=== PATIENT | male | born 1945 | race Caucasian/White ===

== ENCOUNTER 2020-05-16 10:18 | Emergency (ER) | payer OTHER ==
--- OUTSIDE RECORDS SUMMARY | 2020-05-16 10:23 | XMS REPORT | Clinical Summary ---
:1945 Author Organization [facility] Address [address] [place] [address] Care Team Providers Name Role Phone Unknown, Phys Primary Care Provider Unavailable Allergies Active Allergy Reactions Severity Noted Date Comments Amiloride-Hydrochlorothiazide Rash Low 01/16/2016 Medications Medication Sig Dispensed Refills Start Date End Date Status metoprolol succinate XL Take 100 mg by 0 Active (TOPROL-XL) 100 MG 24 mouth 2 (two) hr tablet times a day. clopidogrel (PLAVIX) 75 Take 75 mg by 0 Active mg tablet mouth daily. amLODIPine (NORVASC) 5 Take 5 mg by 0 Active MG tablet mouth daily. aspirin (ECOTRIN) 81 MG Take 81 mg by 0 Active enteric coated tablet mouth daily. losartan (COZAAR) 25 MG 0 04/16/2019 Active tablet Active Problems Problem Noted Date Hypertension 06/12/2018 Type 2 diabetes mellitus without complication, without long-term current 06/12/2018 use of insulin Overview: No diabetic retinopathy. 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/29/2016 Overview: No treatment needed Follow annually Pseudophakia, left eye 01/31/2016 Overview: S/p PCIOL OS 716 toric lens SN6AT3 +19.5 DIOPTER Feels surgery helped him considerably Encounters Date Type Specialty Care Team Description 01/05/2020 Telephone Ophthalmology Ada Valdez 10/06/2019 Travel 10/06/2019 Telephone Ophthalmology Neida Abbott MD 10/01/2019 Telephone Ophthalmology Neida Abbott MD 08/17/2019 Telephone Ophthalmology Neida Abbott MD 08/11/2019 Office Visit Ophthalmology Neida Abbott Nuclear scler otic cataract, right (Primary Dx); MD Rebeca Pseudophakia, l eft eye 06/19/2019 Telephone Ophthalmology Neida Abbott MD 06/11/2019 Office Visit Ophthalmology Neida Abbott Nuclear scler otic cataract, right (Primary Dx); MD Rebeca Type 2 diabetes mellitus without complication, without long-term current use of insulin (HCC); Pseudophakia, l eft eye; Choroidal nevus of left eye; Essential hyper tension after 05/16/2019 Surgical History Surgery Date Site/Laterality Comments KNEE SURGERY Left irrigation CAROTID STENT 07/08/2005 - Femoral 07/07/2006 GA XCAPSL CTRC RMVL 01/16/2016 Eye/Left Procedure: C ATARACT REMOVAL BY INSJ IO LENS PROSTH W/O PHACOEMU LSIFICATION W/ IOL, ECP LEFT EYE; Surge on: Neida Abbott MD; Location: [facility] 18 OR; Service: [facility] Medical devices from this surgery are in t he Implants section. CATARACT EXTRACTION W/ 01/06/2016 - Left INTRAOCULAR LENS 02/05/2016 IMPLANT Medical History Medical History Date Comments Hypertension Family History Medical History Relation Name Comments No Known Problems Brother No Known Problems Father No Known Problems Maternal Aunt No Known Problems Maternal Grandfather No Known Problems Maternal Grandmother No Known Problems Maternal Uncle No Known Problems Mother No Known Problems Paternal Aunt No Known Problems Paternal Grandfather No Known Problems Paternal Grandmother No Known Problems Paternal Uncle No Known Problems Sister Amblyopia Neg Hx Aneurysm Neg Hx Blindness Neg Hx Cancer Neg Hx Cataracts Neg Hx Diabetes Neg Hx Fuchs' dystrophy Neg Hx Glaucoma Neg Hx Hypertension Neg Hx [place] Neg Hx Macular degeneration Neg Hx Multiple sclerosis Neg Hx Ptosis Neg Hx Retinal detachment Neg Hx Strabismus Neg Hx Stroke Neg Hx Thyroid disease Neg Hx Relation Name Status Comments Brother Father Maternal Aunt Maternal Grandfather Maternal Grandmother Maternal Uncle Mother Paternal Aunt Paternal Grandfather Paternal Grandmother Paternal Uncle Sister Social History Tobacco Use Types Packs/Day Years Used Date Never Smoker Smokeless Tobacco: Never Used Alcohol Use Drinks/Week oz/Week Comments No Sex Assigned at Date Recorded Not on file Last Filed Vital Signs Not on file Plan of Treatment Health Maintenance Due Date Last Done Comments DIABETIC FOOT EXAM 11/11/1953 URINE MICROALBUMIN 11/11/1953 COLONOSCOPY SCREENING 11/11/1993 SHINGLES VACCINES (#1) 11/11/1993 65+ PNEUMOCOCCAL VACCINE (1 of 1 - 11/11/2008 PPSV23) INFLUENZA VACCINE 02/06/2020 DIABETES: RETINAL EYE EXAM 08/11/2021 08/11/2019, 9, 06/11/2019, Additional history exists Implants Implanted Type Area Facilities Flight Check Pilot Device Shelf Model / Identifier Expiration Serial / Lot Date Lens Iol Asprc Asymet Bicnvx Ant +19.5d 0deg 6x13mm - [id number] - [id number] Intraocular Left: ANCA 06/06/2020 [id number] / Implanted: Qty: 1 on 01/16/2016 by Neida Abbott MD at [facility] [employer] [id number] / [id number] Procedures Procedure Name Priority Date/Time Associated Comments Diagnosis IOL BIOMETRY - OU - Routine 08/11/2019 10:16 AM Nuclear sclero tic Results for this BOTH EYES RN PSYCHIATRIC cataract, right procedure ar e in the results section. CORNEAL TOPOGRAPHY - Routine 08/11/2019 10:16 AM Nuclear scler otic Results for this OU - BOTH EYES RN PSYCHIATRIC cataract, right procedure are in the results section. after 05/16/2019 Results IOL Master - OU - Both Eyes (08/11/2019 10:16 AM RN PSYCHIATRIC) Pathologist Sig nature Axial Length-OD 25.02 Axial Length-OS 24.55 Anterior Chamber Depth-OD 3.77 Anterior Chamber Depth-OS 5.02 White to White-OD 12.1 White to White-OS 11.9 Specimen Narrative Performed At This result has an attachment that is no t available. Right Eye Lens style: pcboo. Lens power: +16.00d. Target refract ion: -0.29 d. Axial length was 25.02. White to white was 12.1. AC Depth wa s 3.77. Left Eye Axial length was 24.55. White to white was 11.9. AC De pth was 5.02. Notes IOL CALCULATION ORDER SHEET +0.64 d x-62 DATE OF TESTIN08/11/19 DATE OF SURGERY: OD OS RK PRK LASIK SILICONE OIL SCLERAL BUCKLE PKP CONTACT LENSES: DATE LAST WORN: TYPE: RGP: SOFT: DOMINANT EYE: TARGET REFRACTION: OD OS TESTING RESULTS: OD OS K1 K2 AXIS TOTAL CYL K1 K2 AXIS TOTAL CYL AUTO K 44.00 44.75 70 0.75 44.75 45.25 145 0.50 IOLMASTER 44.11 44.75 62 0.64 44.88 45.35 133 0.47 ATLAS GALILEI SimK GALILEI TCP AXIAL LENGTH (in mm) OD OS IOL MASTER 25.02 24.55 SONOMED/ACCUTOME IMMERSION Dr Ajay BANDA FINAL IOL LENS CHOICE: OD OS BACKUP LENS : OD OS Corneal Topography, Galilei - OU (08/11/2019 10:16 AM RN PSYCHIATRIC) Pathologist Sig nature zzAstigmatism (OD) +0.59 d Specimen Narrative Performed At This result has an attachment that is no t available. Right Eye Progression has improved. Findings include normal obse rvations. Astigmatism is +0.59 d. 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
--- NOTE | 2020-05-16 11:39 | RAD REPORT ---
EXAM DESCRIPTION: CTSpine Lumbar Wo Con05/16/2020 11:12 am CLINICAL HISTORY: Back injury with back pain status post fall COMPARISON: None TECHNIQUE: Computed axial tomography lumbar spine was obtained with coronal and sagittal reconstruct ion. All CT scans are performed using dose optimization technique as appropriate and may include automated exposure control or mA/KV adjustment according to patient size. FINDINGS: No fracture is seen involving the lumbar spine. Mild posterior subluxation L2 on L3. Minimal posterior subluxation L3 on L4. Mild anterior subluxatio n of L4 on L5 No dislocation Spondylosis L4-5 results in marked central spinal stenosis Prominent bridging anterolateral osteophytes IMPRESSION: Negative for a lumbar fracture. Spondylosis L4-5 results in marked central spinal stenosis
--- NOTE | 2020-05-16 11:39 | RAD REPORT ---
EXAM DESCRIPTION: CTThoracic Spine W/o Cont05/16/2020 11:12 am CLINICAL HISTORY: Back injury with Back pain with radiculopathy status post fall from a ladder 7 fee t COMPARISON: None TECHNIQUE: Computed axial tomography of thoracic spine was obtained with coronal and sagittal recons truction. All CT scans are performed using dose optimization technique as appropriate and may include automated exposure control or mA/KV adjustment according to patient size. FINDINGS: Nondisplaced fracture involves the right and left pedicles of T12 extending into the right and left lamina. The right and left facets are involved. Fracture involves the T12 vertebral body. M inimal compression of the vertebral body is noted. Prominent anterolateral bridging osteophytes involve the multiple thoracic vertebra. Kyphosis is present. No dislocation IMPRESSION: Nondisplaced fractures involve the right and left pedicles and right and left lamina of T12 extending into the vertebral body. The right and left facets are involved. There is a minimal com pression of the vertebral body.
--- NOTE | 2020-05-16 12:17 | EDPHYS ---
Physician Documentation [facility] Name: Antonio Kam Age: 74 yrs Sex: Male : 1945 Arrival Date: 05/16/2020 Time: 10:21 Bed 6 Private MD: ED Physician Norman Sal HPI: 05/16 12:17 This 74 yrs old Male presents to ER via EMS with complaints of Back Pain. kdr 12:17 The patient presents with pain that is acute. The symptoms are located in the lumbar kdr area. Onset: The symptoms/episode began/occurred suddenly, just prior to arrival. The pain does not radiate. Associated signs and symptoms: The patient has no apparent associated signs or symptoms. The problem was sustained when bending over, Fell from standing backwards onto buttock. Modifying factors: The patient symptoms are alleviated by remaining still, the patient symptoms are aggravated by any movement. Severity of symptoms: At their worst the symptoms were very mild, in the emergency department the symptoms are unchanged. The patient has not experienced similar symptoms in the past. The patient has not recently seen a physician. Historical: - Allergies: 10:22 Unknown diuretic; aa5 - PMHx: 10:22 Hypertension; aa5 10:22 Diabetes Type 2 diet controlled; aa5 - PSHx: 10:22 heart stents; aa5 - Immunization history:: Adult Immunizations up to date. - Social history:: Smoking status: Patient denies any tobacco usage or history of. - Immunization history: Last tetanus immunization: - up to date. ROS: 12:17 Constitutional: Negative for fever, chills, and weight loss, Eyes: Negative for injury, kdr pain, redness, and discharge, ENT: Negative for injury, pain, and discharge, Neck: Negative for injury, pain, and swelling, Cardiovascular: Negative for chest pain, palpitations, and edema, Respiratory: Negative for shortness of breath, cough, wheezing, and pleuritic chest pain, Abdomen/GI: Negative for abdominal pain, nausea, vomiting, diarrhea, and constipation, : Negative for injury, bleeding, discharge, and swelling, MS/Extremity: Negative for injury and deformity, Skin: Negative for injury, rash, and discoloration, Neuro: Negative for headache, weakness, numbness, tingling, and seizure activity. Psych: Negative for depression, anxiety, suicide ideation, homicidal ideation, and hallucinations, Allergy/Immunology: Negative for hives, rash, and allergies, Endocrine: Negative for neck swelling, polydipsia, polyuria, polyphagia, and marked weight changes, Hematologic/Lymphatic: Negative for swollen nodes, abnormal bleeding, and unusual bruising. 12:17 Back: Positive for injury or acute deformity, decreased range of motion, pain at rest, pain with movement, of the lumbar area. Exam: 12:17 Constitutional: This is a well developed, well nourished patient who is awake, alert, kdr and in no acute distress. Head/Face: Normocephalic, atraumatic. Eyes: Pupils equal round and reactive to light, extra-ocular motions intact. Lids and lashes normal. Conjunctiva and sclera are non-icteric and not injected. Cornea within normal limits. Periorbital areas with no swelling, redness, or edema. Neck: Trachea midline, no thyromegaly or masses palpated, and no cervical lymphadenopathy. Supple, full range of motion without nuchal rigidity, or vertebral point tenderness. No Meningismus. Chest/axilla: Normal chest wall appearance and motion. Nontender with no deformity. No lesions are appreciated. Cardiovascular: Regular rate and rhythm with a normal S1 and S2. No gallops, murmurs, or rubs. Normal PMI, no JVD. No pulse deficits. Respiratory: Lungs have equal breath sounds bilaterally, clear to auscultation and percussion. No rales, rhonchi or wheezes noted. No increased work of breathing, no retractions or nasal flaring. Abdomen/GI: Soft, non-tender, with normal bowel sounds. No distension or tympany. No guarding or rebound. No evidence of tenderness throughout. Skin: Warm, dry with normal turgor. Normal color with no rashes, no lesions, and no evidence of cellulitis. MS/ Extremity: Pulses equal, no cyanosis. Neurovascular intact. Full, normal range of motion. Neuro: Awake and alert, GCS 15, oriented to person, place, time, and situation. Cranial nerves II-XII grossly intact. Motor strength 5/5 in all extremities. Sensory grossly intact. Cerebellar exam normal. Normal gait. Psych: Awake, alert, with orientation to person, place and time. Behavior, mood, and affect are within normal limits. 12:17 Back: pain, that is very mild, ROM is painful, normal spinal alignment noted, CVA tenderness, is absent, vertebral tenderness, is appreciated at T11, T12, L1, L2 and L3. Vital Signs: 10:22 BP 153 / 94; Pulse 92; Resp 18 S; Temp 98.0(TE); Pulse Ox 96% on R/A; aa5 11:20 BP 148 / 91; Pulse 94; Resp 18 S; Pulse Ox 95% on R/A; aa5 12:00 BP 159 / 93; Pulse 86; Resp 15; Pulse Ox 95% ; bp 13:00 BP 154 / 90; Pulse 94; Resp 16 S; Pulse Ox 96% on R/A; aa5 14:00 BP 169 / 94; Pulse 103; Resp 17; Pulse Ox 95% ; bp 15:00 BP 153 / 85; Pulse 95; Resp 17; Pulse Ox 94% ; bp 15:30 BP 155 / 88; Pulse 98; Resp 16; Pulse Ox 98% ; bp Vincent Coma Score: 10:22 Eye Response: spontaneous(4). Verbal Response: oriented(5). Motor Response: obeys aa5 commands(6). Total: 15. Trauma Score (Adult): 10:22 Eye Response: spontaneous(1); Verbal Response: oriented(1); Motor Response: obeys aa5 commands(2); Systolic BP: > 89 mm Hg(4); Respiratory Rate: 10 to 29 per min(4); Kamron Score: 15; Trauma Score: 12 11:20 Eye Response: spontaneous(1); Verbal Response: oriented(1); Motor Response: obeys aa5 commands(2); Systolic BP: > 89 mm Hg(4); Respiratory Rate: 10 to 29 per min(4); Vincent Score: 15; Trauma Score: 12 12:00 Eye Response: spontaneous(1); Verbal Response: oriented(1); Motor Response: obeys aa5 commands(2); Systolic BP: > 89 mm Hg(4); Respiratory Rate: 10 to 29 per min(4); Vincent Score: 15; Trauma Score: 12 13:00 Eye Response: spontaneous(1); Verbal Response: oriented(1); Motor Response: obeys aa5 commands(2); Systolic BP: > 89 mm Hg(4); Respiratory Rate: 10 to 29 per min(4); Kamron Score: 15; Trauma Score: 12 MDM: 12:17 Patient medically screened. kdr 12:17 Data reviewed: vital signs, nurses notes, lab test result(s), radiologic studies. kdr Counseling: I had a detailed discussion with the patient and/or guardian regarding: the historical points, exam findings, and any diagnostic results supporting the discharge/admit diagnosis, lab results, radiology results, the need for outpatient follow up. 05/16 12:16 Order name: CBC with Diff kdr 05/16 12:16 Order name: Chem 7 kdr 05/16 10:53 Order name: CT Thoracic Spine Wo Cont; Complete Time: 12:02 kdr 05/16 10:53 Order name: CT Lumbar Spine Wo Con; Complete Time: 12:02 kdr 05/16 12:16 Order name: PT-INR; Complete Time: 13:01 kdr 05/16 12:48 Order name: CBC Smear Scan EDMS Administered Medications: 12:30 Drug: Zofran (Ondansetron) 4 mg Route: IVP; Site: left forearm; aa5 15:36 Follow up: Response: No adverse reaction bp 12:32 Drug: morphine 4 mg Route: IVP; Site: left forearm; aa5 15:36 Follow up: Response: Pain is decreased bp 13:40 Drug: fentaNYL (PF) 50 mcg Route: IVP; Site: left forearm; aa5 15:36 Follow up: Response: Pain is decreased bp 15:22 Drug: morphine 4 mg Route: IVP; Site: left forearm; iw 15:36 Follow up: Response: Pain is decreased bp 15:22 Drug: Zofran (Ondansetron) 4 mg Route: IVP; Site: left forearm; iw 15:35 Follow up: Response: No adverse reaction bp Disposition: 05/16/20 12:17 Transfer ordered to [facility]. Diagnosis is T12 bilateral facet, lamina and pedicle fractures, s/p fall from standing. - Reason for transfer: Higher level of care. - Accepting physician is U. - Condition is Fair. - Problem is new. - Symptoms have improved. Signatures: Dispatcher [employer] EDMS Norman Sal MD MD kdr Kristi Germain RN RN Sima Anderson RN RN aa5 Sheila, Alexis, RN RN bp Corrections: (The following items were deleted from the chart) 13:57 10:22 Allergies: IV Dye; carrie butler 15:36 12:17 05/16/2020 12:17 Transfer ordered to [facility]. bp Diagnosis is T12 bilateral facet, lamina and pedicle fractures, s/p fall from standing. Reason for transfer: Higher level of care. Accepting physician is U. Condition is Fair. Problem is new. Symptoms have improved. kdr
--- NOTE | 2020-05-16 12:17 | ER ---
Nurse's Notes [facility] Name: Antonio Kam Age: 74 yrs Sex: Male : 1945 Arrival Date: 05/16/2020 Time: 10:21 Bed 6 Private MD: Diagnosis: T12 bilateral facet, lamina and pedicle fractures, s/p fall from standing Presentation: 05/16 10:21 Chief complaint: EMS states: FALL WITH BACK PAIN. Coronavirus screen: At this time, the bp client does not indicate any symptoms associated with coronavirus-19. Ebola Screen: No symptoms or risks identified at this time. Initial Sepsis Screen: Does the patient meet any 2 criteria? No. Patient's initial sepsis screen is negative. Does the patient have a suspected source of infection? No. Patient's initial sepsis screen is negative. Risk Assessment: Do you want to hurt yourself or someone else? Patient reports no desire to harm self or others. Onset of symptoms was May 16, 2020 at 10:00. 10:21 Method Of Arrival: EMS: [facility] bp 10:21 Acuity: BASSEM 4 bp 10:22 Care prior to arrival: None. Mechanism of Injury: Fall from standing position. Trauma aa5 event details: Injury occurred in the [facility], Injury occurred: at home. 12:12 Acuity: BASSEM 3 iw Triage Assessment: 10:21 General: Appears in no apparent distress. uncomfortable, Behavior is cooperative, bp appropriate for age, anxious. Pain: Complains of pain in back. EENT: No deficits noted. Neuro: No deficits noted. Cardiovascular: No deficits noted. Respiratory: No deficits noted. GI: No signs and/or symptoms were reported involving the gastrointestinal system. : No signs and/or symptoms were reported regarding the genitourinary system. Derm: No deficits noted. Musculoskeletal: Circulation, motion, and sensation intact. Range of motion: intact in all extremities. Trauma Activation: Not Applicable Physician: ED Physician; Name: ; Notified At: ; Arrived At: Physician: General Surgeon; Name: ; Notified At: ; Arrived At: Physician: Radiology; Name: ; Notified At: ; Arrived At: Physician: Respiratory; Name: ; Notified At: ; Arrived At: Physician: Lab; Name: ; Notified At: ; Arrived At: Historical: - Allergies: 10:22 Unknown diuretic; aa5 - PMHx: 10:22 Hypertension; aa5 10:22 Diabetes Type 2 diet controlled; aa5 - PSHx: 10:22 heart stents; aa5 - Immunization history:: Adult Immunizations up to date. - Social history:: Smoking status: Patient denies any tobacco usage or history of. - Immunization history: Last tetanus immunization: - up to date. Screenin:24 Abuse screen: Denies threats or abuse. Denies injuries from another. Nutritional bp screening: No deficits noted. Tuberculosis screening: No symptoms or risk factors identified. Fall Risk None identified. Primary Survey: 10:22 NO uncontrolled hemorrhage observed. A: The patient is alert. Airway: patent. aa5 Breathing/Chest: Respiratory pattern: regular, Respiratory effort: spontaneous, unlabored, Chest inspection: symmetrical rise and fall of the chest. Circulation: Skin color: pink. Disability Alert. Exposure/Environment: A warming method has been applied: Pt refused warm blanket. 10:45 Reassessment Airway Airway Patent Breathing/Chest Respiratory pattern Regular aa5 Respiratory effort Spontaneous Unlabored Circulation Color [place] Disability Alert. Secondary Survey: 10:21 HEENT: No deficits noted. Gastrointestinal: No deficits noted. : No deficits noted. aa5 Musculoskeletal: Range of motion: intact in all extremities, Reports pain in back. Assessment: 10:24 General: SEE TRIAGE NOTE. Neuro: Level of Consciousness is awake, alert, obeys bp commands, Oriented to Appropriate for age. 12:00 Reassessment: Patient appears in no apparent distress at this time. Patient and/or bp family updated on plan of care and expected duration. Pain level reassessed. Patient is alert, oriented x 3, equal unlabored respirations, skin warm/dry/pink. ALL CURRENT ORDERS COMPLETE. 12:15 Reassessment: Dr. Sal at bedside updating pt about CT scan results and need for aa5 transfer. Pt and verbalize understanding. Pt also notified by Dr. Sal of need for bedrest. . 13:59 Reassessment: 2nd unsuccessful attempt to give report to nurse at [facility] Transfer aa center states nurse will back to obtain report. . 15:05 Reassessment: Report given to AJAY Butterfield at [facility]. . aa5 15:30 Reassessment: [facility] AT B/S FOR TRANSPORT. bp Vital Signs: 10:22 BP 153 / 94; Pulse 92; Resp 18 S; Temp 98.0(TE); Pulse Ox 96% on R/A; aa5 11:20 BP 148 / 91; Pulse 94; Resp 18 S; Pulse Ox 95% on R/A; aa5 12:00 BP 159 / 93; Pulse 86; Resp 15; Pulse Ox 95% ; bp 13:00 BP 154 / 90; Pulse 94; Resp 16 S; Pulse Ox 96% on R/A; aa5 14:00 BP 169 / 94; Pulse 103; Resp 17; Pulse Ox 95% ; bp 15:00 BP 153 / 85; Pulse 95; Resp 17; Pulse Ox 94% ; bp 15:30 BP 155 / 88; Pulse 98; Resp 16; Pulse Ox 98% ; bp [place] Score: 10:22 Eye Response: spontaneous(4). Verbal Response: oriented(5). Motor Response: obeys aa5 commands(6). Total: 15. Trauma Score (Adult): 10:22 Eye Response: spontaneous(1); Verbal Response: oriented(1); Motor Response: obeys aa5 commands(2); Systolic BP: > 89 mm Hg(4); Respiratory Rate: 10 to 29 per min(4); [place] Score: 15; Trauma Score: 12 11:20 Eye Response: spontaneous(1); Verbal Response: oriented(1); Motor Response: obeys aa5 commands(2); Systolic BP: > 89 mm Hg(4); Respiratory Rate: 10 to 29 per min(4); [place] Score: 15; Trauma Score: 12 12:00 Eye Response: spontaneous(1); Verbal Response: oriented(1); Motor Response: obeys aa5 commands(2); Systolic BP: > 89 mm Hg(4); Respiratory Rate: 10 to 29 per min(4); [place] Score: 15; Trauma Score: 12 13:00 Eye Response: spontaneous(1); Verbal Response: oriented(1); Motor Response: obeys aa5 commands(2); Systolic BP: > 89 mm Hg(4); Respiratory Rate: 10 to 29 per min(4); [place] Score: 15; Trauma Score: 12 ED Course: 10:21 Patient arrived in ED. bp 10:23 Triage completed. bp 10:24 Sima Anderson, RN is Primary Nurse. aa5 10:24 Arm band placed on. bp 10:24 Patient has correct armband on for positive identification. Bed in low position. Call bp light in reach. Side rails up X2. 10:41 Norman Sal MD is Attending Physician. kdr 11:11 CT Thoracic Spine Wo Cont In Process Unspecified. EDMS 11:12 CT Lumbar Spine Wo Con In Process Unspecified. EDMS 11:47 Patient moved back from CT. sj 12:30 Initial lab(s) drawn, by me, sent to lab. Inserted saline lock: 20 gauge in left aa5 forearm, using aseptic technique. Blood collected. 12:30 Thermoregulation: warm blanket given to patient. aa5 12:30 Patient maintains SpO2 saturation greater than 95% on room air. aa5 15:34 No provider procedures requiring assistance completed. Patient transferred, IV remains bp in place. Administered Medications: 12:30 Drug: Zofran (Ondansetron) 4 mg Route: IVP; Site: left forearm; aa5 15:36 Follow up: Response: No adverse reaction bp 12:32 Drug: morphine 4 mg Route: IVP; Site: left forearm; aa5 15:36 Follow up: Response: Pain is decreased bp 13:40 Drug: fentaNYL (PF) 50 mcg Route: IVP; Site: left forearm; aa5 15:36 Follow up: Response: Pain is decreased bp 15:22 Drug: morphine 4 mg Route: IVP; Site: left forearm; iw 15:36 Follow up: Response: Pain is decreased bp 15:22 Drug: Zofran (Ondansetron) 4 mg Route: IVP; Site: left forearm; iw 15:35 Follow up: Response: No adverse reaction bp Intake: 15:34 PO: 0ml; Total: 0ml. bp Output: 15:34 Urine: 500ml (Voided); Total: 500ml. bp Outcome: 12:17 ER care complete, transfer ordered by . kdr 15:34 Transferred by ground EMS to [facility], Transfer form completed. bp 15:34 Condition: stable 15:34 Instructed on the need for transfer. 15:35 Patient's length of stay in the Emergency Department was greater than 2 hours. DUE TO bp RECEIVING FACILITY Patient's length of stay extended due to 15:36 Patient left the ED. bp Signatures: Dispatcher [employer] EDMS Norman Sal MD MD kdr Jones, Susan sj Williams, Irene, RN RN iw Sima Anderson RN RN aa5 Alexis Sosa RN RN bp Corrections: (The following items were deleted from the chart) 13:57 10:22 Allergies: IV Dye; aa5 aa5
[2020-05-16] MEDS ORDERED: MORPHINE 4 MG/ML SYR ONE ×2 (12:36→15:28)
[2020-05-16] MEDS ORDERED: ONDANSETRON 4 MG/2 ML VIAL ONE ×2 (12:36→15:28)
[2020-05-16 12:45] LABS: Absolute Lymphocytes (CBC) 1.2 K/uL (0.7-4.9); Basophils % 0.3 % (0-1.3); Hematocrit 44.7 % (39.6-49.0); Lymphocytes % 6.1 % (15.3-44.8); MPV 7.6 fL (7.6-11.3)
[2020-05-16 12:52] LABS: Protime INR 1.01
[2020-05-16 13:08] LABS: Potassium 3.7 mmol/L (3.5-5.1)
[2020-05-16 13:26] LABS: Blood Morphology Comment NOT SEEN (NOT SEEN); Platelet Estimate ADEQ; White Blood Cell Scan OK (OK)
[2020-05-16] MEDS ORDERED: FENTANYL CITR 100 MCG/2 ML ONE (13:51)
[2020-05-16 16:52] VITALS: TEMP 98
[2020-05-16 17:02] VITALS: BP 155/88; O2SAT 98
== END 2020-05-16 15:36 | disposition short-term general hospital (02) ==
LOC: ER 10:18
DX: S22.089A Unspecified fracture of T11-T12 vertebra, initial encounter for closed fracture (principal); W18.30XA Fall on same level, unspecified, initial encounter; Y93.89 Activity, other specified; Y92.89 Other specified places as the place of occurrence of the external cause; Z95.818 Presence of other cardiac implants and grafts; I10 Essential (primary) hypertension; E11.9 Type 2 diabetes mellitus without complications
CPT/HCPCS: 85025; 80048; 36415; 85610; 72131; 72128; 96375; 96374; 99285; J3010; J2405 ×2

== ENCOUNTER 2020-05-24 09:35 | Inpatient (IN) | payer OTHER ==
--- NOTE | 2020-05-24 10:16 | R.PREADM ---
PRE-ADMISSION SCREENING FORM SCREENING DATE AND TIME 05/23/2020 10:02 (UNDERWRITING OPERATIONS MANAGER) ANTICIPATED REHAB ADMISSION DATE 05/25/2020 REFERRING FACILITY [facility] REFERRAL DATE AND TIME 05/23/2020 10:08 (UNDERWRITING OPERATIONS MANAGER) REFERRAL ROOM# 2246 ACUTE ADMIT DATE 05/24/2020 Previous Rehabilitation(s): No. 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 Munir Martins M.D. MR# [id number] NAME CHARLIE KENDALL ADDRESS [address] [place] [address] PHONE [facility] [id number] DATE OF 1945 AGE 74 SSN# [id number] GENDER male MARITAL STATUS RACE unknown race ADMIT FROM 02 - [facility] PRE-HOSPITAL LIVING SETTING 01 - Home (private home/apt. board/care, assisted living, prison, transitional living) HOME TYPE AND DETAILS Type of home: single family house # of levels in the residence: 2 # of steps within the residence: 12 # of steps to enter the residence: 2 PRE-HOSPITAL LIVING WITH Family/Relatives FAMILY SUPPORT Yes PRIMARY FAMILY CONTACT NAME GEREMIAS JARA PRIMARY FAMILY CONTACT PHONE PRIMARY FAMILY CONTACT RELATIONSHIP DAUGHTER PHONE PRIMARY FAMILY CONTACT ON ADM.? no IS PRIMARY FAMILY CONTACT AUTH. REP.? no 1ST EMERGENCY CONTACT GEREMIAS JARA 1ST CONTACT PHONE 1ST CONTACT RELATIONSHIP DAUGHTER PHONE 1ST CONTACT ON ADM. no IS 1ST CONTACT AUTH. REP.? no PHONE 2ND CONTACT ON ADM.? no PATIENT EMPLOYMENT STATUS Retired (for age) PATIENT EMPLOYER No Employer PAYOR INFORMATION: 1ST PAYOR NAME MEDICARE 1ST PAYOR PHONE 1ST PAYOR INJURY/ILLNESS DUE TO ACCIDENT? No ANOTHER LIBERTARIAN RESPONSIBLE? No PRIMARY REHAB/ACUTE DIAGNOSIS: T12 VERTEBRAL FRACTURE ONSET DATE 05/16/2020 REHAB IMPAIRMENT CATEGORY (REHAN): 04 Traumatic spinal cord injury (TSCI) MEETS 60% rule PRIMARY DIAGNOSIS-RELATED SURGERIES: No surgeries related to the primary diagnosis were performed. SUMMARY OF ACUTE HOSPITALIZATION: Pt. is a 74 yo Right-handed male of unknown race. On 05/16/2020 he was admitted to [facility] with diagnosis T12 VERTEBRAL FRACTURE. His impairment category is Spinal Cord Dysfunction 04 - Other Traumatic Spinal Cord Dysfunction (04. 230). Pre-morbidly, Pt. was independent/mod-I in Safety Awareness, Transfers Control, Endurance, and Sphinc ter Control; and he had good Locomotion and Self-Care. Currently, he has deficits of Balance, Transfers Control, Sphincter Control, Endurance, and Locomotio n. Pt. is now referred to [facility] for acute in-patient rehabilitation in order to maximize patient's functional independence in activities of daily living, strength, ROM, and mobi lity. Patient has realistic goal of being discharged at assistance level 7-Ind to reside at Home with Fami ly/Relatives. PAST MEDICAL HISTORY HYPERTENSION CAD S/P PCI ON DAPT DISPO VTE PROPHYLAXIS MEDICATION ALLERGIES: No Known Drug Allergies (NKDA) ENVIRONMENTAL ALLERGIES: - Substance Allergies None Known - Other Allergies None Known CODE STATUS: Full code WEIGHT/HEIGHT/BMI: WEIGHT 304 lbs HEIGHT 6'2" BMI 39 DIET: - Diet Type Regular - Diet - Solid Texture Regular - Diet - Liquid Texture Regular - Tube Feed N/A REVIEW OF SYSTEMS: - Gen Alert and awake Lying in bed No apparent distress Oriented to: person, time, and place - Vital Signs Temperature: 97.6 F SBP/DBP: 146/82 Pulse: 89 Resp: 18 Vital signs stable, afebrile - CVS RRR VITAL SIGNS Temperature: 97.6 F SBP/DBP: 146/82 Pulse: 89 Resp: 18 Vital signs stable, afebrile MEDICATIONS/TREATMENT: Other- See attached MAR (Medication Administration Record). CURRENT SPHINCTER CONTROL: Pre-hospital bladder status: unspecified # of bladder accidents in the last 7 days prior to screenin Pre-hospital bowel status: unspecified # of bowel accidents in the last 7 days prior to screenin Last Bowel Movement Date: 05/23/2020 CURRENT LOCOMOTION STATUS: distance walked 5-6 STEPS W ROLLING WALKER DETAILED CURRENT FUNCTIONAL STATUS: - Bladder accident frequency: Ind - No accidents in the past 7 days - Bowel accident frequency: Ind - No accidents in the past 7 days - Walking score based on distance walked: 0(N/A) - Wheelchair score based on distance traveled: 0(N/A) QI SCORES: - Self-Care A. Eating 04-Supervision or touching assistance B. Oral hygiene 03-Partial/moderate assistance C. Toileting hygiene 88-Not attempted due to medical condition or safety concerns E. Shower/bathe self 02-Substantial/maximal assistance F. Upper body dressing 03-Partial/moderate assistance G. Lower body dressing 02-Substantial/maximal assistance H. Putting on/taking off footwear 88-Not attempted due to medical condition or safety concerns - Mobility A. Roll left and right 02-Substantial/maximal assistance B. Sit to lying 02-Substantial/maximal assistance C. Lying to sitting on side of bed 02-Substantial/maximal assistance D. Sit to stand 03-Partial/moderate assistance E. Chair/qtt-jy-thwnc transfer 02-Substantial/maximal assistance F. Toilet transfer 88-Not attempted due to medical condition or safety concerns G. Car transfer 88-Not attempted due to medical condition or safety concerns I. Walk 10 feet 88-Not attempted due to medical condition or safety concerns J. Walk 50 feet with two turns 88-Not attempted due to medical condition or safety concerns K. Walk 150 feet 88-Not attempted due to medical condition or safety concerns L. Walking 10 feet on uneven surfaces 88-Not attempted due to medical condition or safety concerns M. 1 step (curb) 88-Not attempted due to medical condition or safety concerns N. 4 steps 88-Not attempted due to medical condition or safety concerns O. 12 steps 88-Not attempted due to medical condition or safety concerns P. Picking up object 88-Not attempted due to medical condition or safety concerns R. Wheel 50 feet with two turns 88-Not attempted due to medical condition or safety concerns S. Wheel 150 feet 88-Not attempted due to medical condition or safety concerns - Bladder and Bowel Bladder continence Bowel continence - Endurance Fair - Balance Fair - Safety Awareness Fair CURRENT FUNC. DEFICITS: Self-Care, Mobility, Endurance, Balance, and Safety Awareness CURRENT / PREVIOUS ASSISTIVE DEVICES: Rolling Walker HISTORY OF FALLS. HAS THE PATIENT HAD TWO OR MORE FALLS IN THE PAST YEAR OR ANY FALL WITH INJURY IN T HE PAST YEAR?: No PRIOR SURGERY. DID THE PATIENT HAVE MAJOR SURGERY DURING THE 100 DAYS PRIOR TO ADMISSION?: No THERAPY NOTES FROM ACUTE CARE: Attached. SPECIAL NEEDS: - Safety Concerns Skin breakdown precautions needed due to skin breakdown risk PATIENT NEEDS ACTIVE AND ONGOING THERAPEUTIC INTERVENTION OF MULTIPLE THERAPY DISCIPLINES, INCLUDING: - Orthotics/Prosthetics Orthotic Evaluation. Splinting/Casting. - Dietary and Nutrition Adequate Nutrition. Nutritional Education. Nutritional Supplements. PATIENT NEEDS CLOSE MEDICAL SUPERVISION BY A REHABILITATION PHYSICIAN FOR: Coordination of Treatment Team PATIENT REQUIRES 24X7 REHAB NURSING FOR MEDICAL AND FUNCTIONAL MGT. OF THE FOLLOWING DEFICITS: Disease Management Medication Management Patient/Family Education Providing Safe Environment PATIENT REQUIRES INTENSIVE, COORDINATED INTERDISCIPLINARY APPROACH TO REHAB: Arranging Home Equipment/Services Discharge Planning Family Intervention/Training Route Sales Manager/Case Management PATIENT REHAB POTENTIAL: Nito KENDALL is able and expected to receive 3 hours of individualized therapy daily on at least 5 of juan pablo ry 7 days Nito KENDALL's prognosis for significant practical improvement within a reasonable period of time appears Good Expected level of measurable improvement will be of a practical value to Nito KENDALL's functional capaci ty or adaptations to impairments Has a viable Discharge Plan Medically appropriate; condition is sufficiently stable to participate in intensive rehab program DISCHARGE PLAN: - Estimated Length of Stay (days) 27. - Consensus on plan Discharge plan has been discussed with primary caregiver. Patient/Family is in agreement with the sam n. Primary caregiver is in agreement with the plan. - Patient/Family Goals Return home independently. - Planned Living Setting Upon Discharge Home, to live with Family/Relatives. Transitional Living. RECOMMENDED CARE LEVEL: IRF RECOMMENDATION DETAILS: Recommended Admission to Comprehensive Rehabilitation Program to Increase Functional [place] SCREENER'S COMPLETENESS CONFIRMATION: - Screening Confirmation The patient data collection on this preadmission screening form is finished PHYSICIANS REVIEW AND ADMISSION DETERMINATION Admit - Based on my review of the Pre-Admission Screening results, in my medical judgment and experie nce, I concur with the findings and recommend admission to [facility], as this patient requires an IRF level of care. SIGNATURE PANEL: Coffee Attendant - [electronically] signed by Logan Araiza on 05/24/2020 at 10:00 (UNDERWRITING OPERATIONS MANAGER) Coffee Attendant - [electronically] signed by Chavo Bauer PT on 05/24/2020 at 10:10 (UNDERWRITING OPERATIONS MANAGER) Physician Reviewer - [electronically] signed by Dr. Munir Martins M.D. on 05/24/2020 at 10:16 (UNDERWRITING OPERATIONS MANAGER )
--- OUTSIDE RECORDS SUMMARY | 2020-05-24 15:26 | XMS REPORT | Clinical Summary ---
:1945 Author Organization [employer] Address [address] [place] [address] Care Team Providers Name Role Phone Unknown, [...] of left eye; Essential hyper tension after 05/24/2019 Surgical History Surgery Date Site/Laterality Comments KNEE SURGERY Left irrigation CAROTID STENT 07/08/2005 - Femoral 07/07/2006 NV XCAPSL CTRC RMVL 01/16/2016 Eye/Left Procedure: C ATARACT REMOVAL BY INSJ IO LENS PROSTH W/O PHACOEMU LSIFICATION W/ IOL, ECP LEFT EYE; Surge on: Neida Abbott MD; Location: [facility] 18 OR; Service: [facility] Medical devices from this surgery are in [...] Additional history exists Implants Implanted Type Area [employer] Redevelopment Specialist Device Shelf Model / Identifier Expiration Serial / Lot Date Lens Iol Asprc Asymet Bicnvx Ant +19.5d 0deg 6x13mm - [id number] - [id number] Intraocular Left: ANCA 06/06/2020 [id number] / Implanted: Qty: 1 on 01/16/2016 by Neida Abbott MD at [facility] Lens Implant [employer] [id number] / [id number] Procedures Procedure Name Priority Date/Time Associated Comments Diagnosis IOL BIOMETRY - OU - Routine 08/11/2019 10:16 AM Nuclear sclero tic Results for this BOTH EYES AUTOMOTIVE PROFESSIONAL cataract, right procedure ar e in the results section. CORNEAL TOPOGRAPHY - Routine 08/11/2019 10:16 AM Nuclear scler otic Results for this OU - BOTH EYES AUTOMOTIVE PROFESSIONAL cataract, right procedure are in the results section. after 05/24/2019 Results IOL Master - OU - Both Eyes (08/11/2019 10:16 AM AUTOMOTIVE PROFESSIONAL) Pathologist Sig nature Axial Length-OD 25.02 Axial [...] Topography, Galilei - OU (08/11/2019 10:16 AM AUTOMOTIVE PROFESSIONAL) Pathologist Sig nature zzAstigmatism (OD) +0.59 d Specimen Narrative Performed At This result has an attachment that is no t available. Right Eye Progression has improved. Findings include normal obse rvations. Astigmatism is +0.59 d. 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
--- OUTSIDE RECORDS SUMMARY | 2020-05-24 15:27 | XMS REPORT | Clinical Summary ---
:1945 Author Organization [facility] Address [address] [place] [address] Care Team Providers Name Role Phone Unavailable Primary Care Provider Unavailable Allergies No Known Allergies Medications Medication Sig Dispensed Refills Start Date End Date Status amLODIPine Take 5 mg by 0 Active (NORVASC) 5 MG mouth daily. tablet aspirin 81 MG EC Take 81 mg by 0 Active tablet mouth daily. clopidogreL Take 75 mg by 0 Acti ve (PLAVIX) 75 mg mouth daily. tablet losartan (COZAAR) Take 25 mg by 0 Active 25 MG tablet mouth daily. metoprolol tartrate Take 50 mg by 0 03/12/2020 Active (LOPRESSOR) 50 MG mouth 2 (two) tablet times daily. acetaminophen Take 1 tablet 30 tablet 0 05/24/2020 A ctive (TYLENOL) 500 MG (500 mg 0 tablet total) by mouth every 4 (four) hours as needed for Pain for up to 10 days. ergocalciferol Take 1 8 capsule 0 05/27/2020 Acti ve (ERGOCALCIFEROL) capsule 1,250 mcg (50,000 (50,000 Units unit) capsule total) by mouth once a week. ezetimibe (ZETIA) Take 1 tablet 60 tablet 0 05/24/2020 Active 10 mg tablet (10 mg total) by mouth nightly. famotidine (PEPCID) Take 1 tablet 60 tablet 0 05/24/2020 Active 20 MG tablet (20 mg total) by mouth daily. lidocaine Place 2 0 05/24/2020 Active (LIDODERM) 5 % patches onto 0 patch the skin daily for 30 days Remove & Discard patch within 12 hours or as directed by MD. methocarbamoL Take 1 tablet 0 05/24/2020 A ctive (ROBAXIN) 500 MG (500 mg tablet total) by mouth 4 (four) times daily. polyethylene glycol Take 17 g by 14 each 0 05/24/2020 Active (GLYCOLAX) 17 gram mouth 2 (two) packet times daily. senna (SENOKOT) 8.6 Take 1 tablet 0 05/24/2020 Active mg tablet (8.6 mg total) by mouth 2 (two) times daily. sodium chloride 1 Take 1 tablet 60 tablet 0 05/24/2020 Active gram tablet (1 g total) by mouth 3 (three) times daily with meals. HYDROcodone-acetami Take 1 tablet 15 tablet 0 05/24/202006/03 Active nophen (NORCO by mouth 0 10-325) 10-325 mg every 6 (six) per tablet hours as needed for up to 10 days. Max Daily Amount: 4 tablets METOPROLOL Take 50 mg by 0 Disco ntinued SUCCINATE ORAL mouth 2 (two) 0 ( Error) times daily . Active Problems Problem Noted Date SIADH (syndrome of inappropriate ADH production) 05/24 Closed fracture of first lumbar vertebra 05/23/2020 T10-L2 percutaneous fixation and fusion 05/23/2020 Coronary artery disease involving [place] coronary maría elena ry of [place] heart 05/23/2020 without angina pectoris Post-op pain 05/23/2020 Constipation 05/23/2020 Essential hypertension 05/23/2020 Vitamin D deficiency 05/23/2020 HLD (hyperlipidemia) 05/23/2020 T12 vertebral fracture 05/16/2020 Encounters Date Type Specialty Care Team Description 05/22/2020 Travel 05/19/2020 Surgery Altaf Jones, LAMINECTOMY, ANTERIOR THORACIC W/FUS ION 05/19/2020 Anesthesia Event Emiliano Villa MD Narayan, Rakesh, MD 05/16/2020 - Hospital Encounter General Internal Friedman, Noemi T10- L2 percutaneous fixation and fusion (Primary Dx); 05/24/2020 Medicine MD Miladys Closed fracture of twelfth thoracic vert ebra, unspecified fracture morphology, sequela; Bishop Lira, Preoperativ e cardiovascular examination; Open fracture of first lumbar vertebra, unspecified fracture morphology, initial encounter (HCC); Leann Sánchez MD 05/16/2020 Orders Only General Internal Medicine after 05/24/2019 Immunizations Name Administration Dates Next Due INFLUENZA QIV ADJUVANTED PF IM 05/21/2020 Social History Tobacco Use Types Packs/Day Years Used Date Current Every Day Smoker Cigarettes Tobacco Cessation: Ready to Quit: No; Co unseling Given: No Alcohol Use Drinks/Week oz/Week Comments Not Currently Alcohol Habits Answer Date Recorded How often do you have a drink containing alcohol? Monthly or less 05/16/2020 How many drinks containing alcohol do you have on a 1 or 2 05/16/2020 typical day when you are drinking? How often do you have six or more drinks on one Not asked occasion? Sex Assigned at Date Recorded Not on file COVID-19 Exposure Response Date Recorded In the last month, have you been in contact with No / Unsure 05/22/2020 12:30 AM [employer] someone who was confirmed or suspected to have Coronavirus / COVID-19? Last Filed Vital Signs Vital Sign Reading Time Taken Comments Blood Pressure 169/77 05/24/2020 1:14 PM [employer] Pulse 89 05/24/2020 1:14 PM [employer] Temperature 36.6 C (97.8 F) 05/24/2020 8:00 AM [employer] Respiratory Rate 18 05/24/2020 1:14 PM [employer] Oxygen Saturation 98% 05/24/2020 8:00 AM [employer] Inhaled Oxygen Concentration 21% 05/22/2020 7:25 PM [employer] Weight 129.1 kg (284 lb 9.8 oz) 05/24/2020 10:00 AM [employer] Height 188 cm (6' 2") 05/19/2020 9:31 AM [employer] Body Mass Index 36.54 05/19/2020 9:31 AM [employer] Plan of Treatment Health Maintenance Due Date Last Done Comments PNEUMOCOCCAL 65+ YRS (1 of 1 - [id number]) 11/11/2008 MEDICARE ANNUAL WELLNESS (YEAR 2 or FIRST YEAR if no 11/06/2009 IPPE) INFLUENZA VACCINE Completed 05/21/2020 Implants Implanted Type Area Registry Rn Device Shelf Model / Identifier Expiration Serial / Date Lot Amara Leon Bone 3demin Fbr 10ml [id number] - [id number] IMPLANTS N/A: Spine BACTERIN INTL 12/13/2024 [id number] / Implanted: Qty: 1 on 05/19/2020 by Ivone Jones MD at [facility] [employer] [id number] / Grft Leon Bone 3demin Fbr 10ml [id number] - [id number] IMPLANTS N/A: Spine BACTERIN INTL 12/27/2024 [id number] / Implanted: Qty: 1 on 05/19/2020 by Ivone Jones MD at [facility] [employer] [id number] / Scr Jorge Alberto Bone Mod St 6.5x50mm [id number] - [id number] Spine N/A: Spin e ORTHOFIX [id number] / Implanted: Qty: 6 on 05/19/2020 by Ivone Jones MD at [facility] [employer] INTL:ORTHOFIX / 5.5x50mm Shank Screw N/A: Spine ORTHOFIX SPINAL [id number] / Implanted: Qty: 2 on 05/19/2020 by Ivone Jones MD at [facility] [employer] / [place] Standard Body N/A: Spine ORTHOFIX SPINAL [id number] / Implanted: Qty: 8 on 05/19/2020 by Ivone Jones MD at [facility] [employer] / Lock Screws N/A: Spine ORTHOFIX SPINAL 4 4 / Implanted: Qty: 8 on 05/19/2020 by Ivone Jones MD at [facility] [employer] / [id number] Rods N/A: Spine ORTHOFIX SPINAL 20-0 / Implanted: Qty: 2 on 05/19/2020 by Ivone Jones MD at [facility] [employer] / Procedures Procedure Name Priority Date/Time Associated Comments Diagnosis XR SPINE SCOLIOSIS Routine 05/24/2020 11:29 Resul ts for this STUDY AM [employer] procedure are i n the results section. SODIUM STAT 05/24/2020 10:22 Results for this AM [employer] procedure are i n the results section. POCT-GLUCOSE METER Routine 05/24/2020 7:11 Resul ts for this AM [employer] procedure are i n the results section. CBC W/PLT COUNT & AUTO Routine 05/24/2020 4:59 R esults for this DIFFERENTIAL AM [employer] procedure are i n the results section. BASIC METABOLIC PANEL Routine 05/24/2020 4:59 Re sults for this (7) AM [employer] procedure are i n the results section. CBC W/PLT COUNT & AUTO Routine 05/24/2020 4:59 R esults for this DIFFERENTIAL AM [employer] procedure are i n the results section. POCT-GLUCOSE METER Routine 05/23/2020 8:35 Resul ts for this PM [employer] procedure are i n the results section. POCT-GLUCOSE METER Routine 05/23/2020 5:48 Resul ts for this PM [employer] procedure are i n the results section. SODIUM STAT 05/23/2020 3:13 Results for this PM [employer] procedure are i n the results section. POCT-GLUCOSE METER Routine 05/23/2020 1:03 Resul ts for this PM [employer] procedure are i n the results section. POCT-GLUCOSE METER Routine 05/23/2020 7:49 Resul ts for this AM [employer] procedure are i n the results section. CBC W/PLT COUNT & AUTO Routine 05/23/2020 5:47 R esults for this DIFFERENTIAL AM [employer] procedure are i n the results section. BASIC METABOLIC PANEL Routine 05/23/2020 5:47 Re sults for this (7) AM [employer] procedure are i n the results section. CBC W/PLT COUNT & AUTO Routine 05/23/2020 5:47 R esults for this DIFFERENTIAL AM [employer] procedure are i n the results section. SARS-COV2/RT-PCR (HS Timed 05/23/2020 5:23 R esults for this & REF LABS) AM [employer] procedure are i n the results section. POCT-GLUCOSE METER Routine 05/22/2020 9:00 Resul ts for this PM [employer] procedure are i n the results section. POCT-GLUCOSE METER Routine 05/22/2020 5:20 Resul ts for this PM [employer] procedure are i n the results section. POCT-GLUCOSE METER Routine 05/22/2020 1:55 Resul ts for this PM [employer] procedure are i n the results section. POCT-GLUCOSE METER Routine 05/22/2020 8:41 Resul ts for this AM [employer] procedure are i n the results section. CBC W/PLT COUNT & AUTO Routine 05/22/2020 5:50 R esults for this DIFFERENTIAL AM [employer] procedure are i n the results section. BASIC METABOLIC PANEL Routine 05/22/2020 5:50 Re sults for this (7) AM [employer] procedure are i n the results section. CBC W/PLT COUNT & AUTO Routine 05/22/2020 5:50 R esults for this DIFFERENTIAL AM [employer] procedure are i n the results section. POCT-GLUCOSE METER Routine 05/21/2020 9:26 Resul ts for this PM [employer] procedure are i n the results section. POCT-GLUCOSE METER Routine 05/21/2020 5:50 Resul ts for this PM [employer] procedure are i n the results section. SODIUM Timed 05/21/2020 12:52 Results for this PM [employer] procedure are i n the results section. POCT-GLUCOSE METER Routine 05/21/2020 12:14 Resul ts for this PM [employer] procedure are i n the results section. POCT-GLUCOSE METER Routine 05/21/2020 9:36 Resul ts for this AM [employer] procedure are i n the results section. UREA NITROGEN, RANDOM Routine 05/21/2020 9:11 Re sults for this URINE AM [employer] procedure are i n the results section. CREATININE, RANDOM Routine 05/21/2020 9:11 Resul ts for this URINE AM [employer] procedure are i n the results section. (CELLAVISION MANUAL Routine 05/21/2020 3:14 Resu lts for this DIFF) AM [employer] procedure are i n the results section. CBC W/PLT COUNT & AUTO Routine 05/21/2020 3:14 R esults for this DIFFERENTIAL AM [employer] procedure are i n the results section. LIPID PANEL Add-On 05/21/2020 3:14 Results for this AM [employer] procedure are i n the results section. BASIC METABOLIC PANEL Routine 05/21/2020 3:14 Re sults for this (7) AM [employer] procedure are i n the results section. CBC W/PLT COUNT & AUTO Routine 05/21/2020 3:14 R esults for this DIFFERENTIAL AM [employer] procedure are i n the results section. POCT-GLUCOSE METER Routine 05/20/2020 9:32 Resul ts for this PM [employer] procedure are i n the results section. POCT-GLUCOSE METER Routine 05/20/2020 5:46 Resul ts for this PM [employer] procedure are i n the results section. POCT-GLUCOSE METER Routine 05/20/2020 12:27 Resul ts for this PM [employer] procedure are i n the results section. POCT-GLUCOSE METER Routine 05/20/2020 7:36 Resul ts for this AM [employer] procedure are i n the results section. CBC W/PLT COUNT & AUTO Routine 05/20/2020 4:37 R esults for this DIFFERENTIAL AM [employer] procedure are i n the results section. BASIC METABOLIC PANEL Routine 05/20/2020 4:37 Re sults for this (7) AM [employer] procedure are i n the results section. CBC W/PLT COUNT & AUTO Routine 05/20/2020 4:37 R esults for this DIFFERENTIAL AM [employer] procedure are i n the results section. POCT-GLUCOSE METER Routine 05/19/2020 9:01 Resul ts for this PM [employer] procedure are i n the results section. FL FLUORO NON-SPECIFIC Routine 05/19/2020 12:36 R esults for this UP TO 1 HOUR PM [employer] procedure are i n the results section. LAMINECTOMY,PERCUTANEO 05/19/2020 9:22 Closed fractur e of US DECOMPRESSION AM [employer] twelfth thoracic vertebra, unspecified fracture morphology, initial encounter (HCC) Closed fracture of lumbar vertebra, unspecified fracture morphology, unspecified lumbar vertebral level, initial encounter (HCC) Special Needs (TAINA TABLE) LAMINECTOMY,ANTERIOR THORACIC 05/19/2020 9:22 AM [employer] Closed fracture of W/FUSION twelfth thoracic vertebra, unspecified fracture morphology, initial encounte r (HCC) Closed fracture of lumbar vertebra, unspecified fracture morphology, unspecified lumbar vertebral level, initial encounter (HCC) Special Needs (TAINA TABLE) POCT-GLUCOSE METER Routine 05/19/2020 8:14 AM [employer] Results for this procedure are i n the results section . CBC W/PLT COUNT & AUTO Routine 05/19/2020 3:51 AM [employer] Results for this DIFFERENTIAL procedure are i n the results section . BASIC METABOLIC PANEL (7) Routine 05/19/2020 3:51 AM [employer] Results for this procedure are i n the results section . CBC W/PLT COUNT & AUTO Routine 05/19/2020 3:51 AM [employer] Results for this DIFFERENTIAL procedure are i n the results section . PREPARE LEUKO-REDUCED RBC Routine 05/18/2020 11:37 PM [employer] Results for this procedure are i n the results section . ABORH, MANUAL STAT 05/18/2020 10:42 PM [employer] Res ults for this procedure are i n the results section . POCT-GLUCOSE METER Routine 05/18/2020 9:12 PM [employer] Results for this procedure are i n the results section . VITAMIN D, 25-HYDROXY Routine 05/18/2020 5:49 PM [employer] Results for this procedure are i n the results section . POCT-GLUCOSE METER Routine 05/18/2020 4:48 PM [employer] Results for this procedure are i n the results section . 2D ECHO W/ DOPPLER ERIK 05/18/2020 3:54 PM [employer] Results for this (CW/PW/COLOR) procedure are in the results section . OSMOLALITY, URINE Routine 05/18/2020 2:56 PM [employer] Results for this procedure are i n the results section . SODIUM, RANDOM URINE Routine 05/18/2020 2:56 PM [employer] Results for this procedure are i n the results section . POCT-GLUCOSE METER Routine 05/18/2020 12:20 PM [employer] Results for this procedure are i n the results section . OSMOLALITY, SERUM Routine 05/18/2020 10:33 AM [employer] Results for this procedure are i n the results section . POCT-GLUCOSE METER Routine 05/18/2020 8:10 AM [employer] Results for this procedure are i n the results section . CBC W/PLT COUNT & AUTO Routine 05/18/2020 6:28 AM [employer] Results for this DIFFERENTIAL procedure are i n the results section . HEMOGLOBIN A1C Routine 05/18/2020 6:28 AM [employer] Re sults for this procedure are i n the results section . BASIC METABOLIC PANEL (7) Routine 05/18/2020 6:28 AM [employer] Results for this procedure are i n the results section . CBC W/PLT COUNT & AUTO Routine 05/18/2020 6:28 AM [employer] Results for this DIFFERENTIAL procedure are i n the results section . POCT-GLUCOSE METER Routine 05/17/2020 9:15 PM [employer] Results for this procedure are i n the results section . POCT-GLUCOSE METER Routine 05/17/2020 6:32 PM [employer] Results for this procedure are i n the results section . SODIUM Routine 05/17/2020 3:34 PM [employer] Resu lts for this procedure are i n the results section . MR THORACIC SPINE WITHOUT STAT 05/17/2020 11:45 AM [employer] Results for this IV CONTRAST procedure are i n the results section . ECG 12-LEAD Routine 05/17/2020 10:02 AM [employer] Procedure Note - Interface, External Ris In - 05/17/2020 10:11 AM [employer] Ventricular Rate 91 BPM Atrial Rate 91 BPM P-R Interval 204 ms QRS Duration 158 ms Q-T Interval 406 ms QTC Calculation(Bazett) 499 ms P [place] 40 degrees R [place] 5 degrees T [place] 5 degrees Normal sinus rhythm Right bundle branch block Abnormal ECG When compared with ECG of 19:08, No significant change was fo und ECG 12-LEAD Routine 05/17/2020 10:02 AM [employer] Resu lts for this procedure are i n the results section . POCT-GLUCOSE METER Routine 05/17/2020 8:47 AM [employer] Results for this procedure are i n the results section . CBC W/PLT COUNT & AUTO Routine 05/17/2020 6:24 AM [employer] Results for this DIFFERENTIAL procedure are i n the results section . PLATELET AGGREGATION: Routine 05/17/2020 6:24 AM [employer] Results for this FUNCTION SCREEN procedure ar e in the results section . CBC W/PLT COUNT & AUTO Routine 05/17/2020 6:24 AM [employer] Results for this DIFFERENTIAL procedure are i n the results section . TYPE AND SCREEN, AUTOMATED Routine 05/17/2020 6:23 AM [employer] Results for this procedure are i n the results section . LIPID PANEL Add-On 05/17/2020 6:23 AM [employer] Resu lts for this procedure are i n the results section . POCT-P2Y12 PLATELET Routine 05/17/2020 6:23 AM [employer] Results for this AGGREGATION procedure are i n the results section . POCT-ASPIRIN PLATELET Routine 05/17/2020 6:23 AM [employer] Results for this AGGREGATION procedure are i n the results section . PT/APTT Routine 05/17/2020 6:23 AM [employer] Resu lts for this procedure are i n the results section . PROTHROMBIN TIME/INR Routine 05/17/2020 6:23 AM [employer] Results for this procedure are i n the results section . FIBRINOGEN Routine 05/17/2020 6:23 AM [employer] Resu lts for this procedure are i n the results section . BASIC METABOLIC PANEL (7) Routine 05/17/2020 6:23 AM [employer] Results for this procedure are i n the results section . CT LUMBAR SPINE WITHOUT IV STAT 05/17/2020 3:20 AM [employer] Results for this CONTRAST procedure are i n the results section . CT THORACIC SPINE WITHOUT STAT 05/17/2020 3:20 AM [employer] Results for this IV CONTRAST procedure are i n the results section . CT SPINE CERVICAL WITHOUT STAT 05/17/2020 3:20 AM [employer] Results for this IV CONTRAST procedure are i n the results section . XR CHEST 1 VIEW Routine 05/17/2020 12:56 AM [employer] R esults for this PORTABLE/BEDSIDE procedure a re in the results section . SARS-COV2/RT-PCR ([facility] & STAT 05/16/2020 10:41 PM [employer] Results for this REF LABS) procedure are i n the results section . POCT-GLUCOSE METER Routine 05/16/2020 9:36 PM [employer] Results for this procedure are i n the results section . ECG 12-LEAD Routine 05/16/2020 7:08 PM [employer] Procedure Note - Interface, External Ris In - 05/16/2020 7:18 PM [employer] Ventricular Rate 102 BPM Atrial Rate 102 BPM P-R Interval 192 ms QRS Duration 148 ms Q-T Interval 368 ms QTC Calculation(Bazett) 479 ms P [place] 25 degrees R [place] -7 degrees T [place] -17 degrees Sinus tachycardia Right bundle branch block Abnormal ECG No previous ECGs available ECG 12-LEAD ERIK 05/16/2020 7:08 PM [employer] Resu lts for this procedure are in the results section . after 05/24/2019 Results XR Spine, Scoliosis Study (05/24/2020 11:29 AM [employer]) Specimen Narrative Performed At FINAL REPORT [facility] CLINICAL HISTORY: standing, s/p T10-L2 i nstrumentation TECHNIQUE: 12 frontal and lateral views of the cervical, thoracic, lumbar spine. 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 The numbering scheme used here is the same a s the previous cross-sectional imaging reports. There has been interval posterior spinal rufina and screw fusion of T11-L3 absent screws at the L1 compressi on fracture. A focal kyphosis centered around L1 is noted. The spinal alignment is otherwise maintained. The other vertebral body hei ghts appear preserved. Signed: Deborah Triana MD Report Verified Date/Time: 05/24/2020 14:53:47 Reading Location: [facility] Reading Room Procedure Note Interface, External Ris In - 05/24/2020 2:56 PM [employer] FINAL REPORT CLINICAL HISTORY: standing, s/p T10-L2 i nstrumentation TECHNIQUE: 12 frontal and lateral views of the cervical, thoracic, lumbar spine. 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 The numbering scheme used here is the same a s the previous cross-sectional imaging reports. There has been interval posterior spinal rufina and screw fusion of T11-L3 absent screws at the L1 compressi on fracture. A focal kyphosis centered around L1 is noted. The spinal alignment is otherwise maintained. The other vertebral body hei ghts appear preserved. Signed: Deborah Triana MD Report Verified Date/Time: 05/24/2020 1 4:53:47 Reading Location: [facility] Radiolog y Reading Room Performing Organization Address City/[facility]/Zipcode Phone Number GE RIS Sodium (05/24/2020 10:22 AM [employer])Only the most recent of4 resultswithin the time period is included. Pathologist Sig nature Sodium 128 (L) 136 - 145 meq/L [facility] Specimen Blood Narrative Performed At Head Doffer ID - DEON Meyer [facility] Performing Organization Address [facility] Phone Number [address] [address] CENTER POC-Glucose meter (05/24/2020 7:11 AM [employer])Only the most recent of27 results within the time period is included. POC-Glucose Meter 152 (H) 70 - 110 mg/dL [facility] Comment: [facility] : TESTED AT [facility] [address] [place] [address], [id number] CENTER : Head Doffer/Packager Hand ID = [id number] for LUIS FERNANDO HALL Specimen Blood Performing Organization Address [facility] Centercode Phone Number [address] [address] CENTER CBC with platelet count + automated diff (05/24/2020 4:59 AM [employer])Only the most recent of8 resultswithin the time period is included. Pathologist Sig nature WBC 10.1 3.5 - 10.5 [facility] K/[facility] RBC 4.82 4.63 - 6.08 [facility] M/[facility] Hemoglobin 14.1 13.7 - 17.5 [facility] GM/DL [facility] Hematocrit 43.9 40.1 - 51.0 % [facility] MCV 91.1 79.0 - 92.2 fL [facility] MCH 29.3 25.7 - 32.2 pg [facility] MCHC 32.1 (L) 32.3 - 36.5 [facility] GM/DL [facility] RDW 12.8 11.6 - 14.4 % [facility] Platelets 298 150 - 450 K/CU [facility] MM [facility] MPV 9.0 (L) 9.4 - 12.4 fL [facility] nRBC 0 0 - 0 /100 WBC [facility] % Neutros 65 % [facility] % Lymphs 16 % [facility] % Monos 11 % [facility] % Eos 4 % [facility] % Baso 1 % [facility] # Neutros 6.50 (H) 1.78 - 5.38 [facility] [facility], [place] # Lymphs 1.65 1.32 - 3.57 [facility] # Monos 1.09 (H) 0.30 - 0.[address] [facility], [place] # Eos 0.43 0.04 - 0.54 [facility] # Baso 0.14 (H) 0.01 - 0.[address] [facility] [place] Immature 3 (H) 0 - 1 % [facility] Granulocytes-Relative [facility] Specimen Blood Performing Organization Address City/State/Zipcode Phone Number [facility] [address] [place] [address] CENTER Basic Metabolic Panel (05/24/2020 4:59 AM SAWMILL PRODUCTION WORKER)Only the most recent of8 results within the time period is included. Sodium 129 (L) 136 - 145 meq/L [facility] Potassium 4.0 3.5 - 5.1 meq/L [facility] Chloride 97 (L) 98 - 107 meq/L [facility] CO2 23 22 - 29 meq/L [facility] BUN 11 7 - 21 mg/dL [facility] Creatinine 0.74 0.57 - 1.25 [facility] mg/dL [facility] Glucose 160 (H) 70 - 105 mg/dL [facility] Calcium 8.7 8.4 - 10.2 [facility] mg/dL [facility] EGFR 103Comment: mL/min/1.73 sq [facility] ESTIMATED GFR IS NOT [facility] ACCURATE [place] CREATININE CLEARANCE IN PREDICTING GLOMERULAR FILTRATION RATE. ESTIMATED GFR IS NOT APPLICABLE FOR DIALYSIS PATIENTS. Specimen Blood Narrative Performed At Head Doffer BELGICA Schwartz [facility] ICA CENTER Performing Organization Address City/State/Zipcode Phone Number [facility] [address] [place] [address] [place] SARS-CoV2/RT-PCR (Asymptomatic ONLY) (05/23/2020 5:23 AM SAWMILL PRODUCTION WORKER)Only the most recent of2 resultswithin the time period is included. SARS-COV2/RT-PCR Negative Not Detected, [facility] Negative, See [facility] external report CENTER for linked test SARS-COV-2 [facility] PERFORMING LAB [facility] Specimen Other - Nasopharyngeal wall structure (b josesito structure) Narrative Performed At Negative result for this test determines that [facility] SARS-CoV-2 RNA was not present in the specimen above the Limit of Detection (LOD). However, Negative results do not preclude SARS-CoV-2 infection and should not be used as the sole basis for treatment or patient management decisions. Negative results must be combined with clinical observations, patient history, and epidemiological information. A false negative result may occur if a specimen is improperly collected, transported or handled. A false negative result should be considered if patient's recent exposures or clinical presentation indicate that COVID-19 (SARS-CoV-2) is likely and diagnostic tests for other causes of illness are negative. Re-testing should be considered in cases of suspected false negatives. The limit of detection for this assay is 800 copies/mL. This SARS CoV-2 test is a real-time RT-PCR test intended for the qualitative detection of nucleic acid from SARS-CoV-2 in a nasopharyngeal swab specimen collected from individuals suspected of COVID-19 by their healthcare provider. This test has not been Food and Drug Administration (FDA) cleared or approved. This is a modified version of an approved Emergency Use Authorization (EUA) and is in the process of review by the FDA. Once authorized by the FDA, the issued EUA will be effective until the declaration that circumstances exist justifying the authorization of the emergency use of in vitro diagnostic tests for detection and/or diagnosis of COVID-19 is terminated under Section 564(b)(2) of the Act or the EUA is revoked under Section 564(g) of the Act. Fact Sheet for Healthcare Providers: https://www.[employer]/sites/default/files/pro duct/documents/Fact_Sheet_HC_Providers_Lyra_SA RS-CoV-2.pdf Fact Sheet for Healthcare Patients: https://www.[employer]/sites/default/files/pro duct/documents/Fact_Sheet_Patients_Lyra_SARS-C oV-2.pdf Performing Laboratory: [address] [place] [address] Performing Organization Address City/State/Zipcode Phone Number [facility] MEDICAL [address] [place] [address] CENTER Urea Nitrogen, random urine (05/21/2020 9:11 AM SAWMILL PRODUCTION WORKER) Pathologist Sig nature Urea Nitrogen, Ur 775 mg/dL [facility] Specimen Urine Narrative Performed At Reference Range: No Normals [facility] Head Doffer ID - DEON Meyer Performing Organization Address City/[facility]/Zipcode Phone Number [facility] [address] [place] [address] [place] Creatinine, random urine (05/21/2020 9:11 AM SAWMILL PRODUCTION WORKER) Pathologist Sig nature Creatinine, Ur 78.2 mg/dL [facility] [place] Specimen Urine Narrative Performed At Reference Range: No Normals [facility] Head Doffer ID - DEON Meyer Performing Organization Address City/[facility]/Zipcode Phone Number [facility] [address] [place] [address] [place] Manual Differential (05/21/2020 3:14 AM SAWMILL PRODUCTION WORKER) Pathologist Sig nature % Neutros 86 % [facility] % Lymphs 5 % [facility] % Monos 8 % [facility] % Atypical Lymphs 1 (H) 0 - 0 % [facility] # Neutros 12.30 (H) 1.78 - 5.38 [facility] # Lymphs 0.72 (L) 1.32 - 3.57 [facility] # Monos 1.14 (H) 0.30 - 0.82 [facility] # Atypical Lymphs 0.14 (H) 0.00 - 0.00 [facility] Total Counted 100 [facility] WBC Morphology Normal [facility] Platelet Morphology Normal [facility] Anisocytosis 1+ few [facility] Microcytes 1+ few [facility] Artifact Present [facility] Platelet Conc Adequate [facility] Specimen Blood Narrative Performed At Head Doffer ID - Luyc [facility] User comments: Slide comments: Performing Organization Address City/[facility] Phone Number [facility] [address] [place] [address] [place] Lipid panel (05/21/2020 3:14 AM SAWMILL PRODUCTION WORKER)Only the most recent of2 resultswithin the time period is included. Pathologist Sig nature Triglycerides 72 mg/dL [facility] D[facility] [place] Cholesterol 138 mg/dL [facility] ICAL [place] HDL 43 mg/dL [facility] LDL Calculated 81 mg/dL [facility] [place] Specimen Blood Narrative Performed At Triglyceride Reference Range: [facility] Low Risk <150 Borderline 150-199 High Risk 200-499 Very High Risk >=500 Cholesterol Reference Range: Low Risk <200 Borderline 200-239 High Risk >240 HDL Cholesterol Reference Range: Low Risk >=60 High Risk <40 LDL Cholesterol Reference Range: Optimal <100 Near Optimal 100-129 Borderline 130-159 High 160-189 Very High >=190 Head Doffer ID - DEON Meyer Performing Organization Address [facility] Phone Number [facility] [address] [place] [address] [place] fluoro non-specific up to 1 hour (05/19/2020 12:36 PM SAWMILL PRODUCTION WORKER) Specimen Narrative Performed At Fluoroscopic unit utilized for a procedure performed i n the OR. No GE RIS interpretation was requested. Refer to the operative report for findings. Refer to PACS for patient radiation dose i nformation. Procedure Note Interface, External Ris In - 05/19/2020 1:02 PM SAWMILL PRODUCTION WORKER Fluoroscopic unit utilized for a procedu re performed in the OR. No interpretation was requested. Refer to the operative r eport for findings. Refer to PACS for patient radiation dose information. Performing Organization Address [facility] Phone Number GE RIS Prepare Leuko-Red RBC (05/18/2020 11:37 PM SAWMILL PRODUCTION WORKER) Pathologist Sig nature CROSSMATCH COMPATIBLE SAFETRACE TX Unit ABO O Neg SAFETRACE TX UNIT NUMBER [id number] SAFETRACE TX Status READY SAFETRACE TX Blood Bank Product RED BLOOD CELLS SAFETRACE TX PRODUCT CODE [id number] SAFETRACE TX CROSSMATCH COMPATIBLE SAFETRACE TX Unit ABO O Neg SAFETRACE TX UNIT NUMBER [id number] SAFETRACE TX Status READY SAFETRACE TX Blood Bank Product RED BLOOD CELLS SAFETRACE TX PRODUCT CODE [id number] SAFETRACE TX Specimen Other Performing Organization Address City/[facility] Cent[facility]ode Phone Number SAFETRACE TX carmencita JEAN (05/18/2020 10:42 PM SAWMILL PRODUCTION WORKER) Pathologist Sig nature ABO Grouping O [facility] D[facility] [place] Rh Factor NEG [facility] Specimen Blood Performing Organization Address [facility] Phone Number [address] [address] Vitamin D, 25-Hydroxy (05/18/2020 5:49 PM SAWMILL PRODUCTION WORKER) Pathologist Sig nature Vitamin D 25-Hydroxy 17.2 6.6 - 49.9 ng/mL [facility] Specimen Blood - Entire left upper arm (body stru cture) Narrative Performed At Effective 04/17/2017: Reference Range Ch gely [facility] New: 6.6-49.9 ng/mL Previous: 13.0-47.8 ng/mL Recommended Vitamin D Target Range: 30.0-40.0 ng/mL Head Doffer ID - BS Performing Organization Address [facility] Phone Number [address] [address] CENTER 2D Echo W/Doppler(CW/PW/Color) (05/18/2020 3:54 PM SAWMILL PRODUCTION WORKER) Pathologist Sig nature Ejection Fraction [facility] ECHO HEARTLAB TraitifyCK [facility] Specimen Narrative Performed At Transthoracic Echocardiography Report (T TE) [facility] ECHO HEARTLAB MKCKESSON [facility] Demographics Patient Name ANTONIO KAM Date of Study 05/18/2020 Gender Male Visit Number [id number] Race Unknown Room Number 2246 Number Date of 1945 Referring Physician Noemi Rochelle Loveless, N P Age 74 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 Clinical History Smoker HGB 13.6 HCT 41.2 % Contrast Medium: Definity. Height: 74 inches Weight: 127.01 kg (280 lbs) BSA: 2.51 m^2 BMI: 35.95 kg/m^2 HR: 97 bpm BP: 149/78 mmHg Summary 1. The left ventricle is chamber size (by vol index) is normal. Mild concentric LV hypertrophy. Basal inferior and basal inferoseptum appear hypokinetic. The other segments contract normally. LVEF by Bear's method of disk assessment is normal (55-60%). Grade 1 diastolic dysfunction (impaired relaxation and low-normal LA pressure). LA size is mildly enlarged (35-41 ml/m2) . 2. The right ventricular chamber size and systolic function are within normal limits. RA cavity size is normal. Unable to estimate peak systolic PA pressure; inadequate TR velocity sig nal. 3. No significant valvular abnormalitie s. Previous Study No prior exam available for comparison. Signature Findings Rhythm/BP Sinus tachycardia during the exam. Left Ventricle The left ventricle is chamber size (by vol index) is normal (male - LVED vol - 34-74ml/m2). Mild concentric LV hypertrophy. Basal inferior and basal inferoseptum appear hypo kinetic. The other segments contract normally. Global LV systolic function normal . LVEF by Bear's method of disk assessment is normal (55-60%) . The LVEF was measured using Bear's bi-plane method of disk . Grade 1 diastolic dysfunction (impaired relaxati on and low-normal LA pressure). LV endocardium is adequately visualized with IV ultrasound enhancing agent. Left Atrium LA size is mildly enlarged (35-41 ml/m2) . Right Ventricle The right ventricular chamber size and systolic function are within normal limits. Right Atrium RA cavity size is normal . Aortic Valve AoV is partially visualized. Mild AoV cusp calcification. No evidence of aortic stenosis. Mitral Valve Mild MV leaflet calcification. Mild mitral annular calcification. Trace mitral regurgitation. Tricuspid Valve Unable to estimate peak systolic PA pressure; inadequate TR velocity signal. Pulmonic Valve A trace of pulmonary regurgitation. Normal PV structure and function. Aorta Aortic root size (SInus of Valsalva diameter) is norm al . Pericardium An echo lucent space is noted consistent with prominent pericardial fat pad. No significant pericardial effusion is visualized. IVC/SVC/PA/PV/Pleural The right upper pulmonary vein (RUPV) is normal . The estimated RA pressure by IVC dynamics 0-5mmHg . Chambers/Structures Left Atrium LA Volume: 87.03 ml LA Area: 25.06 cm^2 LA Vol. Index: 35 ml/m^2 Left Ventricle LVIDd: 4.61 cm LV Septum Diastolic: 1.2 cm LV PW Diastolic: 1.23 cm LVEDV Bear's:144.77 ml LVESV Bear's:63.06 ml LVEF Bear's: 56.4 % LVEDVI: 58 ml/m^2 LVESVI: 25 ml/m^2 LVOT Diameter: 2.41 cm Right Ventricle TAPSE: 1.6 2 cm Aorta Ao Root S of Vaishnavi.: 3.48 cm Doppler/Quantitative Measurements Mitral Valve MV Peak E-Wave: 0.79 m/s MV Peak A-Wave: 1.16 m/s E/A Ratio: 0.68 Peak Gradient: 2.51 mmHg Deceleration Time: 247.8 msec MV Jonas. Peak: Tissue Doppler E' Septal Velocity: 0.09 m/s E/E': 8.9 E' Lateral Velocity: 0.09 m/s Aortic Valve Peak Velocity: 1.57 m/s Mean Velocity: 1.06 m/s Peak Gradient: 9.83 mmHg Mean Gradient: 5.33 mmHg AV Area (continuity): 3.08 cm^2 AV VTI: 24.43 cm AV DVI: 0.68 LVOT Peak Velocity: 0.79 m/s Peak Gradient: 2.53 mmHg Mean Velocity: 0.54 m/s Mean Gradient: 1.37 mmHg LVOT Diameter: 2.41 cm LVOT VTI: 16.5 cm LVOT Area: 4.56 cm^2 LVOT SV:75.23 ml LVOT CO: 7.3 l/min LVOT CI: 2.91 l/min/m^2 Procedure Note Interface, External Ris In - 05/18/2020 11:06 PM SAWMILL PRODUCTION WORKER Transthoracic Echocardiography Report (TTE) Demographics Patient Name ANTONIO KAM Date of Study 05/18/2020 Gender Male Visit Number [id number] Race Unknown Room Num [facility] 2246 Number Date of 1945 Refershelia dunham Physician Noemi Tejeda NP Age 74 year(s) Sonograp her Irene Hernandez 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 Clinical History Smoker HGB 13.6 HCT 41.2 % Contrast Medium: Definity. Height: 74 inches Weight: 127.01 kg (280 lbs) BSA: 2.51 m^2 BMI: 35.95 kg/m^2 HR: 97 bpm BP: 149/78 mmHg Summary 1. The left ventricle is chamber size ( by vol index) is normal. Mild concentric LV hypertrophy. Basal inferi or and basal inferoseptum appear hypokinetic. The other segments contrac t normally. LVEF by Bear's method of disk assessment is normal (55 -60%). Grade 1 diastolic dysfunction (impaired relaxation and lo w-normal LA pressure). LA size is mildly enlarged (35-41 ml/m2) . 2. The right ventricular chamber size a nd systolic function are within normal limits. RA cavity size is normal . Unable to estimate peak systolic PA pressure; inadequate TR velocity sig nal. 3. No significant valvular abnormalitie s. Previous Study No prior exam available for comparison. Signature Findings Rhythm/BP Sinus tachycardi a during the exam. Left Ventricle The left ventric le is chamber size (by vol index) is normal (male - LVED vol - 34-74ml/m2). Mild concentric LV hypertrophy. Basal inferior a nd basal inferoseptum appear hypokinetic. The other segmen ts contract normally. Global LV systol ic function normal . LVEF by Bear' s method of disk assessment is normal (55-60%) . The LVEF was bro sured using Bear's bi-plane method of disk . Grade 1 diastoli c dysfunction (impaired relaxation and low-normal L A pressure). LV endocardium i s adequately visualized with IV ultrasound enhan cing agent. Left Atrium LA size is mildl y enlarged (35-41 ml/m2) . Right Ventricle The right ventri cular chamber size and systolic function are wit hin normal limits. Right Atrium RA cavity size i s normal . Aortic Valve AoV is partially visualized. Mild AoV cusp ca lcification. No evidence of a ortic stenosis. Mitral Valve Mild MV leaflet calcification. Mild mitral misael lar calcification. Trace mitral reg urgitation. Tricuspid Valve Unable to estima te peak systolic PA pressure; inadequate TR ve locity signal. Pulmonic Valve A trace of pulmo nary regurgitation. Normal PV struct ure and function. Aorta Aortic root size (SInus of Valsalva diameter) is normal . Pericardium An echo lucent s pace is noted consistent with prominent perica rdial fat pad. No significant p ericardial effusion is visualized. IVC/SVC/PA/PV/Pleural The right upper pulmonary vein (RUPV) is normal . The estimated RA pressure by IVC dynamics 0-5mmHg . Chambers/Structures Left Atrium LA Volume: 87.03 ml LA Area: 25.06 cm^2 LA Vol. Index: 35 ml/m^2 Left Ventricle LVIDd: 4.61 cm LV Septum Diastolic: 1.2 cm LV PW Diastolic: 1.23 cm LVEDV Bear's:144.77 ml LVESV Bear's:63.06 ml LVEF Bear's: 56.4 % LVEDVI: 58 ml/m^2 LVESVI: 25 ml/m^2 LVOT Diameter: 2.41 cm Right Ventricle TAPSE: 1.62 cm Aorta Ao Root S of Vaishnavi.: 3.48 cm Doppler/Quantitative Measurements Mitral Valve MV Peak E-Wave: 0.79 m/s M V Peak A-Wave: 1.16 m/s E /A Ratio: 0.68 P eak Gradient: 2.51 mmHg D eceleration Time: 247.8 msec MV Jonas. Peak: Tissue Doppler E' Septal Velocity: 0.09 m/s E /E': 8.9 E' Lateral Velocity: 0.09 m/s Aortic Valve Peak Velocity: 1.57 m/s Mean Velocity: 1.06 m/s Peak Gradient: 9.83 mmHg Mean Gradient: 5.33 mmHg AV Area (continuity): 3.08 cm^2 AV VTI: 24.43 cm AV DVI: 0.68 LVOT Peak Velocity: 0.79 m/s Pea k Gradient: 2.53 mmHg Mean Velocity: 0.54 m/s Bro n Gradient: 1.37 mmHg LVOT Diameter: 2.41 cm LVO T VTI: 16.5 cm LVOT Area: 4.56 cm^2 LVO T SV:75.23 ml LVOT CO: 7.3 l/min LVO T CI: 2.91 l/min/m^2 Performing Organization Address City/State/Zipcode Phone Number [facility] MKCKESSON CPACS Sodium, random urine (05/18/2020 2:56 PM SAWMILL PRODUCTION WORKER) Pathologist Sig nature Sodium Urine 35 meq/L [facility] CENTER Specimen Urine - Urine (substance) Narrative Performed At Reference Range: No Normals [facility] Head Doffer ID - BS Performing Organization Address [facility] Cent[facility]ode Phone Number [address] [phone] [place] Osmolality, urine (05/18/2020 2:56 PM SAWMILL PRODUCTION WORKER) Pathologist Sig nature Osmolality, Ur 295 50-1,200 mOsm/kg [facility] mOsm/[facility] Specimen Urine - Urine (substance) Performing Organization Address [facility] Phone Number [address] [address] [place] Osmolality, serum (05/18/2020 10:33 AM SAWMILL PRODUCTION WORKER) Pathologist Sig nature Osmolality Serum 274 (L) 275 - 295 mOsm/kg [facility] Specimen Blood - Entire left upper arm (body stru cture) Performing Organization Address [facility] Phone Number [address] [address] [place] Hemoglobin A1c (05/18/2020 6:28 AM SAWMILL PRODUCTION WORKER) Pathologist Sig nature Hemoglobin A1C 8.3 (H) 4.3 - 6.1 % [facility] Specimen Blood Performing Organization Address [facility] Phone Number [address] [address] [place] MR thoracic spine without IV contrast (05/17/2020 11:45 AM SAWMILL PRODUCTION WORKER) Specimen Narrative Performed At FINAL REPORT [facility] MR Thoracic spine without contrast. CLINICAL HISTORY: Cord compression TECHNIQUE: MRI of the thoracic spine uti lizing sagittal T1, T2, and STIR sequences. COMPARISON: CT 05/17/2020 FINDINGS: Please note that after completion of the sagittal sequences, the patient declined further imaging. Theref ore axial T1 and T2-weighted sequences were not obtained. Counting from above, a linear transverse fracture is again seen through the upper half of the L1 vertebr al body extending through the bilateral posterior elements. There is f luid signal within the cleft of the fracture. There is no significant loss of height of the L1 vertebral body or displacement. There is no associated central canal stenosis. There is no mass effect on the thoracic cord or abnormal cord signal. The conus medullaris termin ates at approximately L1. The adjacent anterior inferior corner of the T12 vertebral body also demonstrates focal reactive STIR signal. A subtle linear fracture line is suspected, although this was not evident on the earlier CT. There is no loss of height, and the post erior elements are not involved. There is mild prevertebral edema extendi ng from T9 through L1. The other thoracic vertebral body height s are maintained. There is a slightly exaggerated lower thoracic kyph osis, but the thoracic alignment is preserved. The thoracic mar row signal is otherwise nonfocal. The other thoracic disc levels are essentially unremarkable without significant degenerative stenosi s. IMPRESSION: Acute Chance fracture through the L1 jie tebral body and posterior elements. Abnormal STIR signal and a subtle fractu re line are also seen in the anterior inferior half of the T12 verteb ral body, compatible with an acute fracture. As discussed on the earlier CT report, c linical notes in [facility] have described the Chance fracture level as T 12. This is thought to be due to counting from below. Careful localiza tion should be made prior to surgery. Signed: Deborah Triana MD Report Verified Date/Time: 05/17/2020 12:10:13 Reading Location: [facility] [address] [place] [address] Procedure Note Interface, External Ris In - 05/17/2020 12:26 PM SAWMILL PRODUCTION WORKER FINAL REPORT MR Thoracic spine without contrast. CLINICAL HISTORY: Cord compression TECHNIQUE: MRI of the thoracic spine uti lizing sagittal T1, T2, and STIR sequences. COMPARISON: CT 05/17/2020 FINDINGS: Please note that after completion of the sagittal sequences, the patient declined further imaging. Theref ore axial T1 and T2-weighted sequences were not obtained. Counting from above, a linear transverse fracture is again seen through the upper half of the L1 vertebr al body extending through the bilateral posterior elements. There is f luid signal within the cleft of the fracture. There is no significant loss of height of the L1 vertebral body or displacement. There is no associated central canal stenosis. There is no mass effect on the thoracic cord or abnormal cord signal. The conus medullaris termin ates at approximately L1. The adjacent anterior inferior corner of the T12 vertebral body also demonstrates focal reactive STIR signal. A subtle linear fracture line is suspected, although this was not evident on the earlier CT. There is no loss of height, and the post erior elements are not involved. There is mild prevertebral edema extendi ng from T9 through L1. The other thoracic vertebral body height s are maintained. There is a slightly exaggerated lower thoracic kyph osis, but the thoracic alignment is preserved. The thoracic mar row signal is otherwise nonfocal. The other thoracic disc levels are essentially unremarkable without significant degenerative stenosi s. IMPRESSION: Acute Chance fracture through the L1 jie tebral body and posterior elements. Abnormal STIR signal and a subtle fractu re line are also seen in the anterior inferior half of the T12 verteb ral body, compatible with an acute fracture. As discussed on the earlier CT report, c linical notes in [facility] have described the Chance fracture level as T 12. This is thought to be due to counting from below. Careful localiza tion should be made prior to surgery. Signed: Deborah Triana MD Report Verified Date/Time: 05/17/2020 1 2:10:13 Reading Location: [facility] C013V [facility] Performing Organization Address City/State/Zipcode Phone Number [employer] ECG 12 lead (05/17/2020 10:02 AM SAWMILL [employer]ODUCTION WORKER)Only the most recent of2 resultswithin the time period is included. Specimen Narrative Performed At Ventricular Rate 91 BPM GE MUSE Atrial Rate 91 BPM P-R Interval 204 ms QRS Duration 158 ms Q-T Interval 406 ms QTC Calculation(Bazett) 499 ms P [place] 40 degrees R [place] 5 degrees T [place] 5 degrees Normal sinus rhythm Right bundle branch block Nonspecific T wave abnormality inferolat eral leads Prolonged QT Abnormal ECG When compared with ECG of 16-MAY-2020 19 :08, No significant change was found Confirmed by MD QUAN, VINCE ([id number]) on 05/17/2020 2:37:58 PM Procedure Note Interface, External Ris In - 05/17/2020 2:38 PM [employer] WORK[employer] Ventricular Rate 91 BPM Atrial Rate 91 BPM P-R Interval 204 ms QRS Duration 158 ms Q-T Interval 406 ms QTC Calculation(Bazett) 499 ms P [place] 40 degrees R [place] 5 degrees T [place] 5 degrees Normal sinus rhythm Right bundle branch block Nonspecific T wave abnormality inferolat eral leads Prolonged QT Abnormal ECG When compared with ECG of 16-MAY-2020 19 :08, No significant change was found Confirmed by MD QUAN, CORNELIUS ([id number]) on 05/17/2020 2:37:58 PM Performing Organization Address City/State/Zipcode Phone Number GE MUSE Platelet Aggregation: Function Screen (05/17/2020 6:24 AM [employer]ODUCTION WORKER) Pathologist: Yolie Bolivar MD [facility] (electronic MEDICAL [facility]ENTER signature) Platelets 290 150 - 450 [facility] K/CU [facility] ADP 39 (L) 62 - 100 % [facility] Platelet Rich Plasma 290 200 - 300 [facility]/cu [facility] Plt. Function Screen Decreased [facility] Interpretation aggregation with [facility] ADP which [facility]ENTER indicates platelet dysfunction that may be due to medication effect, uremia, or other platelet function disorders. Clinical correlation is required. Specimen Blood Narrative Performed At Platelet Function Screen results may be [facility] falsely low with platelet counts <75,000/cu mm. Head Doffer ID - [id number] Performing Organization Address [facility] Cent[facility]ode Phone Number [address] [address] [place] [id number]-[id number] PLATELET AGGREGATION (05/17/2020 6:23 AM [employer]LL [employer]ODUCTION WORKER) Pathologist Sig nature POC-[id number] Plt Agg 207 PRU [facility] Specimen Blood Narrative Performed At RANGE INFORMATION: PRU reference range is [facility] 194-418. Post Drug Results: Lower PRU levels are associated with expected antiplatelet effect. Values may be below the stated reference range above. The post-drug PRU values reported in the [employer] P2Y12 package insert are [id number]. Performing Organization Address City/State/Zipcode Phone Number [address] [address] CENTER POCT-ASPIRIN PLATELET AGGREGATION (05/17/2020 6:23 AM SAW[employer]LL [employer]ODUCTION WORKER) Pathologist Sig [facility] POC-Aspirin Plt Agg 592 ARU [facility] Specimen Blood Narrative Performed At RANGE INFORMATION: 350-549 ARU Therapeutic [facility] range for platelet function. 550-700 ARU Non-Therapeutic range for platelet function. Performing Organization Address City/[facility] Centercode Phone Number [address] [address] CENTER Type and screen, automated (05/17/2020 6:23 AM SAW[employer]LL PRODUCTION WORKER) [facility] Sig [facility] ABO/RH AUTOMATED O NEGATIVE [facility] Ab Scrn NEGATIVE [facility] Specimen Blood Performing Organization Address [facility] Centercony Phone Number [address] [address] PT/aPTT (05/17/2020 6:23 AM SAW[employer]LL PRODUCTION WORKER) Pathologist [facility] Protime 14.0 11.9 - 14.2 seconds [facility] INR 1.11 <=5.90 [facility] PTT 29.8 22.5 - 36.0 seconds [facility] Specimen Blood Narrative Performed At Effective 12/03/2018: PT Reference Range [facility] Change New: 11.9-14.2 Previous: 11.7-14.7 RECOMMENDED COUMADIN/WARFARIN INR THERAPY RANGES STANDARD DOSE: 2.0-3.0 Includes: PROPHYLAXIS for venous thrombosis, systemic embolization; TREATMENT for venous thrombosis and/or pulmonary embolus. HIGH RISK: Target INR is 2.5-3.5 for patients wiht mechanical heart valves. Performing Organization Address City/[facility] Centercode Phone Number [address] [address] CENTER Prothrombin time/INR (05/17/2020 6:23 AM SAW[employer]LL PRODUCTION WORKER) Pathologist Sig [employer] Protime 14.0 11.9 - 14.2 seconds [facility] INR 1.11 <=5.90 [facility] Specimen Blood Narrative Performed At Effective 12/03/2018: PT Reference Range [facility] Change New: 11.9-14.2 Previous: 11.7-14.7 RECOMMENDED COUMADIN/WARFARIN INR THERAPY RANGES STANDARD DOSE: 2.0-3.0 Includes: PROPHYLAXIS for venous thrombosis, systemic embolization; TREATMENT for venous thrombosis and/or pulmonary embolus. HIGH RISK: Target INR is 2.5-3.5 for patients wiht mechanical heart valves. Performing Organization Address City/State/Zipcode Phone Number [facility] [address] [place] [address] [place] Fibrinogen (05/17/2020 6:23 AM SAW[employer]LL PRODUCTION WORKER) Pathologist Sig nature Fibrinogen 525 (H) 225 - 434 mg/dl [facility] Specimen Blood Performing Organization Address City/[facility]/Zipcode Phone Number [place] [phone] [place] [address] [place] [address] spine cervical without IV contrast (05/17/2020 3:20 AM [employer]ODUCTION WORKER) Specimen Narrative Performed At FINAL REPORT [facility] CT Cervical, Thoracic, and Lumbar Spine CLINICAL HISTORY: Cervical disc disorder TECHNIQUE: Contiguous axial images of th e cervical, thoracic, and lumbar spine with coronal and sagittal r eformations to assess the alignment. This exam was performed accor ding to the departmental dose optimization program which includes auto mated exposure control, adjustment of the mA and/or kV according to the patient size, and/or use of an iterative reconstruction techn ique. COMPARISON: None FINDINGS: Please note that there is transitional l umbosacral anatomy. When counting from above, there is a fully fo rmed S1-S2 disc level with lumbarization of the S1 vertebral body. There is vacuum disc phenomenon in what is considered the L5- S1 disc level. There are rudimentary ribs on what is considered t he L1 vertebral body. There is a transversely oriented fractur e through the upper half of what is considered the L1 vertebral body based on this numbering scheme. This fracture extends transverse ly through the bilateral pedicles, lamina, and spinous process, c ompatible with a Chance fracture. There is no dislocation or sig nificant loss of height. There is no evidence for a paraspinal he matoma. There is no gross evidence for epidural hematoma. However, please note that the central canal contents are not well evaluated du e to the lack of intrathecal contrast. There is no other evidence of spinal fra cture. There are bulky flowing bridging anterior osteophytes fr om T5 through T10. There is fusion of the spinous processes from T9- L2. A few small lateral syndesmophytes are seen in the lumbar sp ine. The visualized lungs are clear. The visu alized soft tissues are grossly unremarkable. 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 Counting from abo ve, the Chance fracture involves what is considered the L1 verte bral body. Clinical notes in EPIC state the patient 's fracture as involving the T12 vertebral body. This is likely due t o counting from below. Care should be noted this difference in level labeling during surgical localization. Signed: Deborah Triana MD Report Verified Date/Time: 05/17/2020 08:38:09 Reading Location: [facility] C013V [facility] Room Procedure Note Interface, External Ris In - 05/17/2020 8:40 AM [employer]LL [employer]ODUCTION WORKER FINAL REPORT CT Cervical, Thoracic, and Lumbar Spine CLINICAL HISTORY: Cervical disc disorder TECHNIQUE: Contiguous axial images of th e cervical, thoracic, and lumbar spine with coronal and sagittal r eformations to assess the alignment. This exam was performed accor thang to the departmental dose optimization program which includes auto mated exposure control, adjustment of the mA and/or kV according to the patient size, and/or use of an iterative reconstruction techn ique. COMPARISON: None FINDINGS: Please note that there is transitional l umbosacral anatomy. When counting from above, there is a fully fo rmed S1-S2 disc level with lumbarization of the S1 vertebral body. There is vacuum disc phenomenon in what is considered the L5- S1 disc level. There are rudimentary ribs on what is considered t he L1 vertebral body. There is a transversely oriented fractur e through the upper half of what is considered the L1 vertebral body based on this numbering scheme. This fracture extends transverse ly through the bilateral pedicles, lamina, and spinous process, c ompatible with a Chance fracture. There is no dislocation or sig nificant loss of height. There is no evidence for a paraspinal he matoma. There is no gross evidence for epidural hematoma. However, please note that the central canal contents are not well evaluated du e to the lack of intrathecal contrast. There is no other evidence of spinal fra cture. There are bulky flowing bridging anterior osteophytes fr om T5 through T10. There is fusion of the spinous processes from T9- L2. A few small lateral syndesmophytes are seen in the lumbar sp ine. The visualized lungs are clear. The visu alized soft tissues are grossly unremarkable. 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 Counting from abo ve, the Chance fracture involves what is considered the L1 verte bral body. Clinical notes in EPIC state the patient 's fracture as involving the T12 vertebral body. This is likely due t o counting from below. Care should be noted this difference in level labeling during surgical localization. Signed: Deborah Triana MD Report Verified Date/Time: 05/17/2020 0 8:38:09 Reading Location: [address] Room Performing Organization Address City/State/Zipcode Phone Number [facility] CT spine lumbar without IV contrast (05/17/2020 3:20 AM SAW[employer]LL PRODUCTION WORKER) Specimen Narrative Performed At FINAL REPORT [facility] CT Cervical, Thoracic, and Lumbar Spine CLINICAL HISTORY: Cervical disc disorder TECHNIQUE: Contiguous axial images of th e cervical, thoracic, and lumbar spine with coronal and sagittal r eformations to assess the alignment. This exam was performed accor thang to the departmental dose optimization program which includes auto mated exposure control, adjustment of the mA and/or kV according to the patient size, and/or use of an iterative reconstruction techn ique. COMPARISON: None FINDINGS: Please note that there is transitional l umbosacral anatomy. When counting from above, there is a fully fo rmed S1-S2 disc level with lumbarization of the S1 vertebral body. There is vacuum disc phenomenon in what is considered the L5- S1 disc level. There are rudimentary ribs on what is considered t he L1 vertebral body. There is a transversely oriented fractur e through the upper half of what is considered the L1 vertebral body based on this numbering scheme. This fracture extends transverse ly through the bilateral pedicles, lamina, and spinous process, c ompatible with a Chance fracture. There is no dislocation or sig nificant loss of height. There is no evidence for a paraspinal he matoma. There is no gross evidence for epidural hematoma. However, please note that the central canal contents are not well evaluated du e to the lack of intrathecal contrast. There is no other evidence of spinal fra cture. There are bulky flowing bridging anterior osteophytes fr om T5 through T10. There is fusion of the spinous processes from T9- L2. A few small lateral syndesmophytes are seen in the lumbar sp ine. The visualized lungs are clear. The visu alized soft tissues are grossly unremarkable. 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 Counting from abo ve, the Chance fracture involves what is considered the L1 verte bral body. Clinical notes in EPIC state the patient 's fracture as involving the T12 vertebral body. This is likely due t o counting from below. Care should be noted this difference in level labeling during surgical localization. Signed: Deborah Triana MD Report Verified Date/Time: 05/17/2020 08:38:09 Reading Location: [facility] C013V [facility] Room Procedure Note Interface, External Ris In - 05/17/2020 8:40 AM SAW[employer]LL [employer]ODUCTION WORKER FINAL REPORT CT Cervical, Thoracic, and Lumbar Spine CLINICAL HISTORY: Cervical disc disorder TECHNIQUE: Contiguous axial images of th e cervical, thoracic, and lumbar spine with coronal and sagittal r eformations to assess the alignment. This exam was performed accor thang to the departmental dose optimization program which includes auto mated exposure control, adjustment of the mA and/or kV according to the patient size, and/or use of an iterative reconstruction techn ique. COMPARISON: None FINDINGS: Please note that there is transitional l umbosacral anatomy. When counting from above, there is a fully fo rmed S1-S2 disc level with lumbarization of the S1 vertebral body. There is vacuum disc phenomenon in what is considered the L5- S1 disc level. There are rudimentary ribs on what is considered t he L1 vertebral body. There is a transversely oriented fractur e through the upper half of what is considered the L1 vertebral body based on this numbering scheme. This fracture extends transverse ly through the bilateral pedicles, lamina, and spinous process, c ompatible with a Chance fracture. There is no dislocation or sig nificant loss of height. There is no evidence for a paraspinal he matoma. There is no gross evidence for epidural hematoma. However, please note that the central canal contents are not well evaluated du e to the lack of intrathecal contrast. There is no other evidence of spinal fra cture. There are bulky flowing bridging anterior osteophytes fr om T5 through T10. There is fusion of the spinous processes from T9- L2. A few small lateral syndesmophytes are seen in the lumbar sp ine. The visualized lungs are clear. The visu alized soft tissues are grossly unremarkable. 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 Counting from abo ve, the Chance fracture involves what is considered the L1 verte bral body. Clinical notes in EPIC state the patient 's fracture as involving the T12 vertebral body. This is likely due t o counting from below. Care should be noted this difference in level labeling during surgical localization. Signed: Deborah Triana MD Report Verified Date/Time: 05/17/2020 0 8:38:09 Reading Location: [facility] C013V [facility] Room Performing Organization Address City/State/Zipcode Phone Number [facility] CT spine thoracic without IV contrast (05/17/2020 3:20 AM SAW[employer]LL PRODUCTION WORKER) Specimen Narrative Performed At FINAL REPORT [facility] CT Cervical, Thoracic, and Lumbar Spine CLINICAL HISTORY: Cervical disc disorder TECHNIQUE: Contiguous axial images of th e cervical, thoracic, and lumbar spine with coronal and sagittal r eformations to assess the alignment. This exam was performed accor thang to the departmental dose optimization program which includes auto mated exposure control, adjustment of the mA and/or kV according to the patient size, and/or use of an iterative reconstruction techn ique. COMPARISON: None FINDINGS: Please note that there is transitional l umbosacral anatomy. When counting from above, there is a fully fo rmed S1-S2 disc level with lumbarization of the S1 vertebral body. There is vacuum disc phenomenon in what is considered the L5- S1 disc level. There are rudimentary ribs on what is considered t he L1 vertebral body. There is a transversely oriented fractur e through the upper half of what is considered the L1 vertebral body based on this numbering scheme. This fracture extends transverse ly through the bilateral pedicles, lamina, and spinous process, c ompatible with a Chance fracture. There is no dislocation or sig nificant loss of height. There is no evidence for a paraspinal he matoma. There is no gross evidence for epidural hematoma. However, please note that the central canal contents are not well evaluated du e to the lack of intrathecal contrast. There is no other evidence of spinal fra cture. There are bulky flowing bridging anterior osteophytes fr om T5 through T10. There is fusion of the spinous processes from T9- L2. A few small lateral syndesmophytes are seen in the lumbar sp ine. The visualized lungs are clear. The visu alized soft tissues are grossly unremarkable. 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 Counting from abo ve, the Chance fracture involves what is considered the L1 verte bral body. Clinical notes in EPIC state the patient 's fracture as involving the T12 vertebral body. This is likely due t o counting from below. Care should be noted this difference in level labeling during surgical localization. Signed: Deborah Triana MD Report Verified Date/Time: 05/17/2020 08:38:09 Reading Location: [facility] C013V [facility] Room Procedure Note Interface, External Ris In - 05/17/2020 8:40 AM SAW[employer]LL [employer]ODUCTION WORKER FINAL REPORT CT Cervical, Thoracic, and Lumbar Spine CLINICAL HISTORY: Cervical disc disorder TECHNIQUE: Contiguous axial images of th e cervical, thoracic, and lumbar spine with coronal and sagittal r eformations to assess the alignment. This exam was performed accor thang to the departmental dose optimization program which includes auto mated exposure control, adjustment of the mA and/or kV according to the patient size, and/or use of an iterative reconstruction techn ique. COMPARISON: None FINDINGS: Please note that there is transitional l umbosacral anatomy. When counting from above, there is a fully fo rmed S1-S2 disc level with lumbarization of the S1 vertebral body. There is vacuum disc phenomenon in what is considered the L5- S1 disc level. There are rudimentary ribs on what is considered t he L1 vertebral body. There is a transversely oriented fractur e through the upper half of what is considered the L1 vertebral body based on this numbering scheme. This fracture extends transverse ly through the bilateral pedicles, lamina, and spinous process, c ompatible with a Chance fracture. There is no dislocation or sig nificant loss of height. There is no evidence for a paraspinal he matoma. There is no gross evidence for epidural hematoma. However, please note that the central canal contents are not well evaluated du e to the lack of intrathecal contrast. There is no other evidence of spinal fra cture. There are bulky flowing bridging anterior osteophytes fr om T5 through T10. There is fusion of the spinous processes from T9- L2. A few small lateral syndesmophytes are seen in the lumbar sp ine. The visualized lungs are clear. The visu alized soft tissues are grossly unremarkable. 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 Counting from abo ve, the Chance fracture involves what is considered the L1 verte bral body. Clinical notes in EPIC state the patient 's fracture as involving the T12 vertebral body. This is likely due t o counting from below. Care should be noted this difference in level labeling during surgical localization. Signed: Deborah Triana MD Report Verified Date/Time: 05/17/2020 0 8:38:09 Reading Location: [facility] B1 C013V [facility] Performing Organization Address City/State/Zipcode Phone Number [facility] XR chest 1 view portable / bedside (05/17/2020 12:56 AM SAWMILL PRODUCTION WORKER) Specimen Narrative Performed At FINAL REPORT [facility] INDICATION: pre op COMPARISON: None TECHNIQUE: Single frontal view of the est. IMPRESSION: Lungs and pleura: Mild pulmonary venous congestion and bibasilar subsegmental atelectasis. No consolidati on or effusion. Heart and mediastinum: Heart size is mag nified by technique. Unremarkable mediastinal contours. Osseous structures: No acute abnormality . Other: None. Signed: Megan Ramires MD Report Verified Date/Time: 05/17/2020 03:28:49 Procedure Note Interface, External Ris In - 05/17/2020 3:30 AM [employer]LL [employer]ODUCTION WORKER FINAL REPORT INDICATION: pre op COMPARISON: None TECHNIQUE: Single frontal view of the ch est. IMPRESSION: Lungs and pleura: Mild pulmonary venous congestion and bibasilar subsegmental atelectasis. No consolidati on or effusion. Heart and mediastinum: Heart size is mag nified by technique. Unremarkable mediastinal contours. Osseous structures: No acute abnormality . Other: None. Signed: Megan Ramires MD Report Verified Date/Time: 05/17/2020 0 3:28:49 Performing Organization Address City/State/Zipcode Phone Number GE RIS after 05/24/2019 Advance Directives For more information, please contact: [phone] Code Status Date Activated Date Inactivated Comments Full Code 05/19/2020 5:52 PM This code status was determined by: Patient Full Code 05/16/2020 6:08 PM 05/19/2020 5:52 PM This code status was determined by: Patient
--- OUTSIDE RECORDS SUMMARY | 2020-05-24 15:29 | XMS REPORT | Continuity of Care Document ---
:1945 Author Organization [facility] t Address [address] [place] [address] Care Team Providers Name Role Phone Unknown Primary Care Physician Unavailable Miladys Friedman MD Attending Clinician Jovanni DE LUNA Attending Clinician Janet Sánchez MD Attending Clinician Dk Jones MD Attending Clinician Lucero Villa MD Attending Clinician Abdoul DE LUNA Attending Clinician MILADYS FRIEDMAN Attending Clinician Unavailable José Migule Attending Clinician Unavailable Andra Abbott MD Attending Clinician JOVANNI Admitting Clinician Unavailable Payers Payer Name Policy Type Policy Effective Date Expiration Date Sour ce Number MEDICAREMEDICARE A [id number] 2008 LATISHA Jeff [id number] 2008- 00:00:00 - Lana saavedra PresentMedicare Center MEDICAREMEDICARE PART [id number] 2008 Octaviano Pickering AND 00:00:00 Church [id number] 2008- [facility] TXMedicare AETNAAETNA PPO OPEN [id number] 1991 [place] [id number] 00:00:00 Met meliton [id number] Problems Condition Condition Condition Status Onset Resolution Last Treating Co mments Source Name Details Category Date Date Treatment Clinician Date SIADH SIADH Disease Active 2019-[address] [facility] (syndrome (syndrome 1-17 [facility] - of of 00:00: Medical inappropri inappropri 00 Ce nter ate ADH ate ADH production production ) ) Closed Closed Disease Active 2019-[address] [facility] fracture fracture 1-16 [facility] of first of first 00:00: Medica l lumbar lumbar 00 Center vertebra vertebra T10-L2 T10-L2 Disease Active 2019-[address] [facility] percutaneo percutaneo 1-16 Beatriz kes - [facility] 00:00: Medical fixation fixation 00 Center and fusion and fusion Coronary Coronary Disease Active 2019-07 [facility] artery artery 1-16 [facility] - disease disease 00:00: Medical involving involving 00 Cent er [place] coronary coronary artery of artery of [place] heart heart without without angina angina pectoris pectoris Post-op Post-op Disease Active 2019-[address] [facility] [facility] pain pain 16 [facility] - 00:00: Medical 00 Center Constipati Constipati Disease Active 2019-[address] on on 07-23 [facility] - 00:00: Medical 00 Center Essential Essential Disease Active 2019-[address] [facility] [facility] hypertensi hypertensi -16 Beatriz kes - on on 00:00: Medical 00 Center Vitamin D Vitamin D Disease Active 2019-[address] [facility] [facility] deficiency deficiency 16 Beatriz kes - 00:00: Medical 00 Center HLD HLD Disease Active 2019-[address] [facility] (hyperlipi (hyperlipi 16 Beatriz kes - demia) demia) 00:00: Medical 00 Center T12 T12 Disease Active 2019-[address] [facility] [facility] vertebral vertebral 1-09 [facility] - fracture fracture 00:00: Medica l 00 [place] Hypertensi Hypertensi Disease Active 2017-07 [place] on 08-13 Methodi 00:00: st 00 Type 2 Type 2 Disease Active 2017-07 Overview: Shiv pepe diabetes diabetes 2-06 No Method i mellitus mellitus 00:00: diabetic st without without 00 retinopat complicati complicati hy. 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: [place] nevus of nevus of 07-29 No Method i left eye left eye 00:00: treatment st 00 neededFol low annually Pseudophak Pseudophak Disease Active Overview : [place] ia, left ia, left 01-30 S/p PCIOL Met hodi eye eye 00:00: OS st 00 01/20toric [id number] 3 +19.5 DIOPTERFe els surgery helped him considera bert Allergies, Adverse Reactions, Alerts Allergy Allergy Status Severity Reaction(s) Onset Inactive Treating Comm ents Source Name Type Date Date Clinician Lucina Fulton Active Rash [place] e-Hydroc ty to 01-15 Methodi hlorothi adverse 00:00: st azide reaction 00 s to drug Family History Family Member Diagnosis Comments Start Date Stop Date Source Natural brother No Known Problems [place] [facility] Natural father No Known Problems Anika stoaf[facility]in [facility] Maternal aunt No Known Problems [place] [facility] Maternal No Known Problems [place] grandfather Church Maternal No Known Problems [place] grandmother Church Maternal uncle No Known Problems Anika ston [facility] Natural mother No Known Problems Anika ston [facility] Paternal aunt No Known Problems [place] [facility] Paternal No Known Problems [place] grandfather [facility] Paternal No Known Problems [place] grandmother [facility] Paternal uncle No Known Problems Anika stoaf[facility]in [facility] Natural sister No Known Problems Anika [facility]in [facility] Family member Amblyopia [place] [facility] Family member Aneurysm [place] [employer] Family member Blindness [place] [employer] Family member Cancer [place] [facility] Family member Cataracts [place] [facility] Family member Diabetes [place] [facility] Family member Fuchs' dystrophy [place] [facility] Family member Glaucoma [place] [facility] Family member Hypertension [place] [facility] Family member Keratoconus [place] [facility] Family member Macular degeneration [place] [facility] Family member Multiple sclerosis Anika stoafshin [facility] Family member Ptosis [place] [facility] Family member Retinal detachment Anika cristofer Church Family member Strabismus [place] [facility] Family member Stroke [place] [facility] Family member Thyroid disease [place] [facility] Social History Social Habit Start Date Stop Date Quantity Comments Source History of Cigarette Smoker [facility]3] ukes - tobacco use Medical Cente r History SDOH [facility] - Alcohol Binge Medical [facility] Sex Assigned At [facility] Exposure to Not sure [facility] - SARS-CoV-2 [facility] Center (event) Alcohol intake 2020-05-23 2020-05-23 Ex-drinker [facility] St [facility] es - 00:00:00 00:00:00 (finding) Medical Center History [facility] 2020-05-16 2020-05-[address] [facility] - Alcohol Frequency 00:00:00 00:00:00 Medical Center History [facility] 2020-05-16 2020-05-[address] [facility] - Alcohol Std 00:00:00 00:00:00 [facility] rudolph Drinks Tobacco use and 2019-06-11 2019-06-11 Never used Earnest Schwartz ethodist exposure 00:00:00 00:00:00 Smoking Status Start Date Stop Date Source Current every day smoker 2020-05-23 00:00:[address] [facility] [address] [facility] Never smoker Earnest Sainiis vineet Medications Ordered Filled Start Stop Current Ordering Indication Dosage Frequency Signature Comments Components Source Medication Medication Date Date Medication? Clinician (SIG) Name Name amLODIPine 2019-07 Yes 5mg QD Take [address] (NORVASC) 5 1-17 by mouth Luke s - MG tablet 15:17: daily. [address] aspirin 81 2019-07 Yes 81mg QD Take [address] MG EC -17 by mouth [facility] - tablet 15:17: daily. [address] clopidogreL 2019-07 Yes 75mg QD Take [address] (PLAVIX) 75 -17 by mouth Luke s - mg tablet 15:17: daily. [address] losartan 2019-07 Yes 25mg QD Take [address] (COZAAR) 25 -17 by mouth Luke s - MG tablet 15:17: daily. [address] ezetimibe 2019-07 Yes 10mg QD Take [address] (ZETIA) 10 1-17 tablet (10 [place] - mg tablet 00:00: mg total) Med ical 00 by mouth Center nightly. famotidine 2019-07 Yes 20mg QD Take 1 [facility] t (PEPCID) 20 1-17 tablet (20 Beatriz kes - MG tablet 00:00: mg total) Med ical 00 by mouth Center daily. methocarbam 2019-07 Yes 500mg Q.25D Take [address] oL 1-17 tablet [facility] - (ROBAXIN) 00:00: (500 mg Medic al 500 MG 00 total) by Center tablet mouth 4 (four) times daily. polyethylen 2019-07 Yes 17g Q.5D Take [address] e glycol 1-17 by mouth 2 [facility] - (GLYCOLAX) 00:00: (two) Medica l 17 gram 00 times Center packet daily. senna 2019-07 Yes 8.6mg Q.5D Take [address] (SENOKOT) 1-17 tablet [facility] - 8.6 mg 00:00: (8.6 mg Medical tablet 00 total) by Center mouth 2 (two) times daily. sodium 2019-07 Yes 1g Take [address] chloride 1 1-17 tablet (1 Luke s - gram tablet 00:00: g total) Me dical 00 by mouth 3 Center (three) times daily with meals. lidocaine 2019-07- Yes 2{patch Q24H Place [address] (LIDODERM) 1-17 17 } patches [facility] - 5 % patch 00:00: 23:59 onto the Med ical 00 :00 skin daily Center for 30 days Remove & Discard patch within 12 hours or as directed by . acetaminoph 2019-07- Yes 500mg Take [address] en -24 05- tablet [facility] - (TYLENOL) 00:00: 23:59 (500 mg Medi lilian 500 MG 00 :00 total) by Center tablet mouth every 4 (four) hours as needed for Pain for up to 10 days. HYDROcodone 2019-07 2020- Yes 1{tbl} Take [address] -acetaminop -24 05- tablet by Beatriz johnson (NORCO 00:00: 23:59 mouth Medic al 10-325) 00 :00 every 6 Center 10-325 mg (six) per tablet hours as needed for up to 10 days. Max Daily Amount: 4 tablets METOPROLOL 2019-07 2020- No 50mg Q.5D Take [address] SUCCINATE 1-15 11-15 by mouth 2 [place] - ORAL 01:50: 00:00 (two) Medical 55 :00 times Center daily . metoprolol Yes 50mg Q.5D Take [address] tartrate 9-05 by mouth 2 [facility] - (LOPRESSOR) 00:00: (two) Medic al 50 MG 00 times Center tablet daily. metoprolol 2018-07 Yes 100mg Q.5D Take 100 [place] succinate 2-05 mg by Methodi XL 09:58: mouth 2 st (TOPROL-XL) 01 (two) 100 MG 24 times a hr tablet day. clopidogrel 2018-07 Yes 75mg QD Take 75 mg Earnest (PLAVIX) 75 2-05 by mouth Meth kinsey mg tablet 09:58: daily. st 01 amLODIPine 2018-07 Yes 5mg QD Take 5 mg Octaviano talley (NORVASC) 5 2-05 by mouth Meth kinsey MG tablet 09:58: daily. st 01 aspirin 2018-07 Yes 81mg QD Take 81 mg [place] (ECOTRIN) 2-05 by mouth Method i 81 MG 09:58: daily. st enteric 01 coated tablet losartan 2018-07 Yes [place] (COZAAR) 25 0-10 Methodi MG tablet 00:00: st 00 Immunizations Ordered Immunization Filled Immunization Date Status Commen ts Source Name Name INFLUENZA QIV 2020-05-21 Completed [facility] - ADJUVANTED PF IM 00:00:00 Medical Center Vital Signs Vital Name Observation Time Observation Value Comments Source Systolic blood 2020-05-24 13:14:00 169 mm[Hg] [facility] Diastolic blood 2020-05-24 13:14:00 77 mm[Hg] [facility] Heart rate 2020-05-24 13:14:00 89 /min [facility] Respiratory rate 2020-05-24 13:14:00 18 /min [facility] Body weight 2020-05-24 10:00:00 129.1 kg [facility] BMI 2020-05-24 10:00:00 36.54 kg/m2 [facility] Body temperature 2020-05-24 08:00:00 36.56 Ilene [facility] Oxygen saturation in 2020-05-24 08:00:00 98 /min [facility] Arterial blood by Medical Ce nter Pulse oximetry Body height 2020-05-19 09:31:00 188 cm [facility] Procedures Procedure Date / Time Performing Clinician Source Performed XR SPINE SCOLIOSIS STUDY 2020-05-24 11:29:00 Brett Fermin Ma [facility] SODIUM 2020-05-24 10:22:00 Licha Parra [facility] POCT-GLUCOSE METER 2020-05-24 07:11:00 Adio, Titilola R. [facility] BASIC METABOLIC PANEL 2020-05-24 04:59:00 Zander Brett [address] CBC W/PLT COUNT & AUTO 2020-05-24 04:59:[address] [facility] POCT-GLUCOSE METER 2020-05-23 20:35:00 Adio, Titilola R. [facility] POCT-GLUCOSE METER 2020-05-23 17:48:00 Adio, Titilola R. [facility] SODIUM 2020-05-23 15:13:00 Thang Salazar [facility] POCT-GLUCOSE METER 2020-05-23 13:03:00 Adio, Titilola R. [facility] POCT-GLUCOSE METER 2020-05-23 07:49:00 Adio, Titilola R. [facility] BASIC METABOLIC PANEL 2020-05-23 05:47:00 Tera Ferminrey [address] CBC W/PLT COUNT & AUTO 2020-05-23 05:47:[address] [facility] SARS-COV2/RT-PCR ([facility] & 2020-05-23 05:23:00 Satish Page [facility] POCT-GLUCOSE METER 2020-05-22 21:00:00 Adio, Titilola R. [facility] POCT-GLUCOSE METER 2020-05-22 17:20:00 Adio, Titilola R. [facility] POCT-GLUCOSE METER 2020-05-22 13:55:00 Adio, Titilola R. [facility] POCT-GLUCOSE METER 2020-05-22 08:41:00 Adio, Titilola R. [facility] BASIC METABOLIC PANEL 2020-05-22 05:50:[address] CBC W/PLT COUNT & AUTO 2020-05-22 05:50:00 Brett Fermin [facility] POCT-GLUCOSE METER 2020-05-21 21:26:00 Adio, Titilola R. [facility] POCT-GLUCOSE METER 2020-05-21 17:50:00 Adio, Titilola R. [facility] SODIUM 2020-05-21 12:52:00 Satish Page [facility] POCT-GLUCOSE METER 2020-05-21 12:14:00 Adio, Titilola R. [facility] POCT-GLUCOSE METER 2020-05-21 09:36:00 Adio, Leann RJaye [facility] CREATININE, RANDOM URINE 2020-05-21 09:11:00 Thang Salazar [facility] UREA NITROGEN, RANDOM 2020-05-21 09:11:00 Thang Salazar [facility] BASIC METABOLIC PANEL 2020-05-21 03:14:[address] [facility] ([address] [place] [address] LIPID PANEL 2020-05-21 03:14:00 BahdiLicha [facility] CBC W/PLT COUNT & AUTO 2020-05-21 03:14:00 Brett Fermin [facility] (CELLAVISION MANUAL 2020-05-21 03:14:00 Brett Fermin [facility] POCT-GLUCOSE METER 2020-05-20 21:32:00 Adio, Titilola R. [facility] POCT-GLUCOSE METER 2020-05-20 17:46:00 Adio, Titilola R. [facility] POCT-GLUCOSE METER 2020-05-20 12:27:00 Adio, Titilola R. [facility] POCT-GLUCOSE METER 2020-05-20 07:36:00 Adio, Titilola R. [facility] BASIC METABOLIC PANEL 2020-05-20 04:37:00 Brett Fermin [place] [id number]) [facility] CBC W/PLT COUNT & AUTO 2020-05-20 04:37:00 Brett Fermin [facility] POCT-GLUCOSE METER 2020-05-19 21:01:00 Leann Sánchez [facility] FL FLUORO NON-SPECIFIC 2020-05-19 12:36:00 Altaf Jones [facility] - UP TO 1 HOUR [facility] LAMINECTOMY,ANTERIOR 2020-05-19 09:22:00 Altaf Jones [facility] - THORACIC W/FUSION Medical Cente r LAMINECTOMY,PERCUTANEOUS 2020-05-19 09:22:[address] [facility] DECOMPRESSION [facility] POCT-GLUCOSE METER 2020-05-19 08:14:00 Leann Sánchez [facility] BASIC METABOLIC PANEL 2020-05-19 03:51:[address] [facility] (7) [facility] CBC W/PLT COUNT & AUTO 2020-05-19 03:51:00 LATISHA Bryson t charanjit - DIFFERENTIAL [facility] PREPARE LEUKO-REDUCED 2020-05-18 23:37:00 Neo Lua [facility] ABORH, MANUAL 2020-05-18 22:42:00 Danielle Worley [facility] POCT-GLUCOSE METER 2020-05-18 21:12:00 Leann Sánchez [facility] VITAMIN D, 25-HYDROXY 2020-05-18 17:49:00 Fidel [facility] POCT-GLUCOSE METER 2020-05-18 16:48:00 Leann Sánchez [facility] 2D ECHO W/ DOPPLER 2020-05-18 15:54:[address] [facility] (CW/PW/COLOR) [facility] SODIUM, RANDOM URINE 2020-05-18 14:56:00 [facility] OSMOLALITY, URINE 2020-05-18 14:56:00 [facility] POCT-GLUCOSE METER 2020-05-18 12:20:00 Leann Sánchez [facility] OSMOLALITY, SERUM 2020-05-18 10:33:00 Licha Parra [facility] POCT-GLUCOSE METER 2020-05-18 08:10:00 Leann Sánchez [facility] BASIC METABOLIC PANEL 2020-05-18 06:28:00 Brett Fermin [address] HEMOGLOBIN A1C 2020-05-18 06:28:00 Noemi Tejeda [facility] CBC W/PLT COUNT & AUTO 2020-05-18 06:28:00 LATISHA Bryson S t [facility] - DIFFERENTIAL [facility] POCT-GLUCOSE METER 2020-05-17 21:15:00 Jovanni [facility] POCT-GLUCOSE METER 2020-05-17 18:32:00 Bishop Lira [facility] SODIUM 2020-05-17 15:34:00 Thang Salazar [facility] MR THORACIC SPINE 2020-05-17 11:45:00 Thang Salazar [facility] - WITHOUT IV CONTRAST Medical Cent er ECG 12-LEAD 2020-05-17 10:02:52 Unknown, Hl7 Doctor [facility] POCT-GLUCOSE METER 2020-05-17 08:47:00 Bishop Lira [facility] PLATELET AGGREGATION: 2020-05-17 06:24:00 Neo Lua [facility] - FUNCTION SCREEN [facility] CBC W/PLT COUNT & AUTO 2020-05-17 06:24:00 LATISHA Bryson S t [facility] - DIFFERENTIAL [facility] BASIC METABOLIC PANEL 2020-05-17 06:23:[address] [facility] () [facility] FIBRINOGEN 2020-05-17 06:23:00 Jovanni Bishop [facility] PROTHROMBIN TIME/INR 2020-05-17 06:23[facility] 2020-05-17 06:23:00 Jovanni [facility] POCT-ASPIRIN PLATELET 2020-05-17 06:23:[address] [facility] AGGREGATION [facility] POCT-P2Y12 PLATELET 2020-05-17 06:23:[address] [facility] AGGREGATION [facility] LIPID PANEL 2020-05-17 06:23:00 Noemi Tejeda [facility] TYPE AND SCREEN, 2020-05-17 06:23:00 Bishop Lira [facility] - AUTOMATED Medical Center CT SPINE CERVICAL 2020-05-17 03:20:00 Thang Salazar [facility] - WITHOUT IV CONTRAST Medical [facility] CT THORACIC SPINE 2020-05-17 03:20:00 Thang Salazar [facility] - WITHOUT IV CONTRAST Medical Cent er CT LUMBAR SPINE WITHOUT 2020-05-17 03:20:00 Thang Salazar [facility] - IV CONTRAST [facility] Center XR CHEST 1 VIEW 2020-05-17 00:56:00 Thang Salazar [facility] - PORTABLE/BEDSIDE Medical Center SARS-COV2/RT-PCR ([facility] & 2020-05-16 22:41:00 Brett Fermin Ma [facility] - REF LABS) [facility] POCT-GLUCOSE METER 2020-05-16 21:36:00 Bishop Lira [facility] ECG 12-LEAD 2020-05-16 19:08:11 Unknown, Hl7 Doctor [facility] IOL BIOMETRY - OU - BOTH 2019-08-11 10:16:48 Neida Abbottist EYES Rebeca CORNEAL TOPOGRAPHY - OU 2019-08-11 10:16:45 Neida Abbott [facility] - BOTH EYES Rebeca Plan of Care Planned Activity Planned Date Details Comments Source Future Scheduled 2021-08-11 DIABETES: RETINAL EYE [facility] Test 00:00:00 EXAM [code = DIABETES: RETINAL EYE EXAM] Future Scheduled 2020-02-06 INFLUENZA VACCINE [code [place] [facility] Test 00:00:00 = INFLUENZA VACCINE] Future Scheduled 2009-11-06 MEDICARE ANNUAL [facility] - Test 00:00:00 WELLNESS (YEAR 2 or Medical Center FIRST YEAR if no IPPE) [code = MEDICARE ANNUAL WELLNESS (YEAR 2 or FIRST YEAR if no IPPE)] Future Scheduled 2008-11-11 65+ PNEUMOCOCCAL [place] [facility] Test 00:00:00 VACCINE (1 of 1 - PPSV23) [code = 65+ PNEUMOCOCCAL VACCINE (1 of 1 - PPSV23)] Future Scheduled 2008-11-11 PNEUMOCOCCAL 65+ YRS ([address] [facility] - Test 00:00:00 of 1 - [id number] Medica l Center PCV13) [code = PNEUMOCOCCAL 65+ YRS (1 of 1 - [id number] PCV13)] Future Scheduled 1993-11-11 COLONOSCOPY SCREENING [place] [facility] Test 00:00:00 [code = COLONOSCOPY SCREENING] Future Scheduled 1993-11-11 SHINGLES VACCINES (#1) [place] [facility] Test 00:00:00 [code = SHINGLES VACCINES (#1)] Future Scheduled 1953-11-11 DIABETIC FOOT EXAM [place] [facility] Test 00:00:00 [code = DIABETIC FOOT EXAM] Future Scheduled 1955-11-11 URINE MICROALBUMIN [place] [facility] Test 00:00:00 [code = URINE MICROALBUMIN] Medication 2020-05-27 ergocalciferol [facility] - 00:00:00 (ERGOCALCIFEROL) 1,250 Medic al Center mcg (50,000 unit) capsule [code = 3551020] Results Test Description Test Test Comments Results Result Sour e Time Comments RAD, SPINE, 2020-05- Reason for SCOLIOSIS STUDY, 17 exam:->standing, 2 OR 3 VIEWS 14:53:00 s/p T10-L2 instrumentation [facility] : 1945 Sex: M FINAL REPORT CLINICAL HISTORY: standing, s/p T10-L2 instrumentation TECHNIQUE: 12 frontal and lateral views of the cervical, thoracic, lumbar spine. COMPARISON: CT and MRI 05/17/2020 IMPRESSION: Please note that transitional lumbosacral anatomy is again seen. The numbering scheme used here is the same as the previous cross-sectional imaging reports. There has been interval posterior spinal rufina and screw fusion of T11-L3 absent screws at the L1 compression fracture. A focal kyphosis centered around L1 is noted. The spinal alignment is otherwise maintained. The other vertebral body heights appear preserved. Signed: Deborah Triana Verified Date/Time: 05/24/2020 14:53:47 Reading Location: [facility] Radiology Reading Room Spine, , External [facility] Scoliosis Study 17 Ris In - 05/24/2020 [facility] 14:53:00 2:56 PM CSTFINAL Medical REPORT PATIENT ID: Kelsey [id number] CLINICAL HISTORY: standing, s/p T10-L2 instrumentation TECHNIQUE: 12 frontal and lateral views of the cervical, thoracic, lumbar spine. COMPARISON: CT and MRI 05/17/2020 IMPRESSION: Please note that transitional lumbosacral anatomy is again seen. The numbering scheme used here is the same as the previous cross-sectional imaging reports. There has been interval posterior spinal rufina and screw fusion of T11-L3 absent screws at the L1 compression fracture. A focal kyphosis centered around L1 is noted. The spinal alignment is otherwise maintained. The other vertebral body heights appear preserved. Signed: Deborah Triana Verified Date/Time: 05/24/2020 14:53:47 Reading Location: [facility] Radiology Reading Room Sodium 2020-05-24 10:52:00 Test Item Value Reference Range Interpretation Comme nts Sodium (test code = 2951-2) 128 meq/L 136-145 L MICHELLE (test code = MICHELLE) Dietician ID - DEON F Lab Interpretation (test code = 69749-2) [facility] 10:52:00 Test Item Value Reference Range Interpretation Comments SODIUM (BEAKER) (test code = 381) 128 meq/L 136-145 L Dietician ID - DEON FPOC-Glucose [id number] 07:24:00 Test Item Value Reference Range Interpretation Comments POC-Glucose Meter (test 152 mg/dL 70-110 H : TE STED AT [facility] code = 1538) [address] [facility], 770 30: Dietician/Techni ezra ID = [id number] for LUIS FERNANDO HALL Lab Interpretation (test Abnormal code = 76660-9) [facility] [id number] 07:24:00 Test Item Value Reference Range Interpretation Comments POC-GLUCOSE METER 152 mg/dL 70-110 H : TESTED A T [facility] 6720 (BEAKER) (test code = JINA Galdamez [facility], 1538) [address]: Dietician/Techni ezra ID = [id number] for LUIS FERNANDO LANG Basic Metabolic [id number] 05:56:00 Test Item Value Reference Range Interpretation Comments Sodium (test code = 129 meq/L 136-145 L 2951-2) Potassium (test code = 4.0 meq/L 3.5-5.1 2823-3) Chloride (test code = 97 meq/L 98-107 L 2075-0) CO2 (test code = 23 meq/L 22-29 2028-9) BUN (test code = 11 mg/dL 7-21 3094-0) Creatinine (test code 0.74 mg/dL 0.57-1.25 = 2160-0) Glucose (test code = 160 mg/dL 70-105 H 2345-7) Calcium (test code = 8.7 mg/dL 8.4-10.2 87590-4) EGFR (test code = 103 mL/min/1.73 [place] [address]-3) NOT ACCURATE CREATININE CLEARANCE IN PREDICTING GLOMERULAR FILTRATION RATE . ESTIMATED GFR I S NOT APPLICABLE FOR DIALYSIS PATIENTS. MICHELLE (test code = MICHELLE) Dietician ID - CHANO M Lab Interpretation Abnormal (test code = 21474-0) [facility]OLIC [id number] 05:56:00 Test Item Value Reference Range Interpretation Comments SODIUM (BEAKER) 129 meq/L 136-145 L (test code = 381) POTASSIUM (BEAKER) 4.0 meq/L 3.5-5.1 (test code = 379) CHLORIDE (BEAKER) 97 meq/L 98-107 L (test code = 382) CO2 (BEAKER) (test 23 meq/L 22-29 code = 355) BLOOD UREA NITROGEN 11 mg/dL 7-21 (BEAKER) (test code = 354) CREATININE (BEAKER) 0.74 mg/dL 0.57-1.25 (test code = 358) GLUCOSE RANDOM 160 mg/dL 70-105 H (BEAKER) (test code = 652) CALCIUM (BEAKER) 8.7 mg/dL 8.4-10.2 (test code = 697) EGFR (BEAKER) (test 103 mL/min/1.73 ESTIM ATED GFR IS code = 1092) sq m NOT ACCURATE CREATININE CLEARANCE IN PREDICTING GLOMERULAR FILTRATION RATE . ESTIMATED GFR I S NOT APPLICABLE FOR DIALYSIS PATIEN TS. Dietician ID - CHANO MCBC with platelet count + automated [id number] 05:24:00 Test Item Value Reference Range Interpretation Comments WBC (test code = 6690-2) 10.1 3.5- 10.5 K/L RBC (test code = 789-8) 4.82 4.63- 6.08 M/L MCHC (test code = 786-4) 32.1 32.3- 36.5 GM/DL L Hematocrit (test code = 4544-3) 43.9 % 40.1-51 MCV (test code = 787-2) 91.1 fL 79-92.2 MCH (test code = 785-6) 29.3 pg 25.7-32.2 RDW (test code = 788-0) 12.8 % 11.6-14.4 Platelets (test code = 777-3) 298 150- 450 K/CU MM MPV (test code = 36605-1) 9.0 fL 9.4-12.4 L nRBC (test code = 413) 0 0- 0 /100 WBC % Neutros (test code = 429) 65 % % Lymphs (test code = 430) 16 % % Monos (test code = 431) 11 % % Eos (test code = 432) 4 % % Baso (test code = 437) 1 % # Neutros (test code = 670) 6.50 1.78- 5.38 K/L H # Lymphs (test code = 414) 1.65 1.32- 3.57 K/L # Monos (test code = 415) 1.09 0.30- 0.82 K/L H # Eos (test code = 416) 0.43 0.04- 0.54 K/L # Baso (test code = 417) 0.14 0.01- 0.08 K/L H Immature Granulocytes-Relative 3 % 0-1 H (test code = 2801) Lab Interpretation (test code = Abnormal 98405-4) [facility] W/PLT COUNT & AUTO [id number] 05:24:00 Test Item Value Reference Range Interpretation Comments WHITE BLOOD CELL COUNT (BEAKER) 10.1 K/ L 3.5-10.5 (test code = 775) RED BLOOD CELL COUNT (BEAKER) 4.82 M/ L 4.63-6.08 (test code = 761) HEMOGLOBIN (BEAKER) (test code = 14.1 GM/DL 13.7-17.5 410) HEMATOCRIT (BEAKER) (test code = 43.9 % 40.1-51.0 411) MEAN CORPUSCULAR VOLUME (BEAKER) 91.1 fL 79.0-92.2 (test code = 753) MEAN CORPUSCULAR HEMOGLOBIN 29.3 pg 25.7-32.2 (BEAKER) (test code = 751) MEAN CORPUSCULAR HEMOGLOBIN CONC 32.1 GM/DL 32.3-36.5 L (BEAKER) (test code = 752) RED CELL DISTRIBUTION WIDTH 12.8 % 11.6-14.4 (BEAKER) (test code = 412) PLATELET COUNT (BEAKER) (test 298 K/CU MM 150-450 code = 756) MEAN PLATELET VOLUME (BEAKER) 9.0 fL 9.4-12.4 L (test code = 754) NUCLEATED RED BLOOD CELLS 0 /100 WBC 0-0 (BEAKER) (test code = 413) NEUTROPHILS RELATIVE PERCENT 65 % (BEAKER) (test code = 429) LYMPHOCYTES RELATIVE PERCENT 16 % (BEAKER) (test code = 430) MONOCYTES RELATIVE PERCENT 11 % (BEAKER) (test code = 431) EOSINOPHILS RELATIVE PERCENT 4 % (BEAKER) (test code = 432) BASOPHILS RELATIVE PERCENT 1 % (BEAKER) (test code = 437) NEUTROPHILS ABSOLUTE COUNT 6.50 K/ L 1.78-5.38 H (BEAKER) (test code = 670) LYMPHOCYTES ABSOLUTE COUNT 1.65 K/ L 1.32-3.57 (BEAKER) (test code = 414) MONOCYTES ABSOLUTE COUNT (BEAKER) 1.09 K/ L 0.30-0.82 H (test code = 415) EOSINOPHILS ABSOLUTE COUNT 0.43 K/ L 0.04-0.54 (BEAKER) (test code = 416) BASOPHILS ABSOLUTE COUNT (BEAKER) 0.14 K/ L 0.01-0.08 H (test code = 417) IMMATURE GRANULOCYTES-RELATIVE 3 % 0-1 H PERCENT (BEAKER) (test code = 2801) POCT-GLUCOSE [id number] 20:48:00 Test Item Value Reference Range Interpretation Comments POC-GLUCOSE METER 163 mg/dL 70-110 H : TESTED A T [facility] 6720 (BEBANNER) (test code = [facility], 1538) [address]: Dietician/Techni ezra ID = [id number] for DE NNIS, LUIS FERNANDO POCT-GLUCOSE [id number] 18:05:00 Test Item Value Reference Range Interpretation Comments POC-GLUCOSE METER 137 mg/dL 70-110 H : TESTED A T [facility] 6720 (BEBANNER) (test code = [facility], 1538) 66[address]: Dietician/Techni ezra ID = [id number] for CHARLA ANTONY [id number] 15:44:00 Test Item Value Reference Range Interpretation Comments SODIUM (BEAKER) (test code = 381) 132 meq/L 136-145 L Dietician ID - BSPOCT-GLUCOSE [id number] 13:18:00 Test Item Value Reference Range Interpretation Comments POC-GLUCOSE METER 146 mg/dL 70-110 H : TESTED A T [facility] 6720 (BEAKER) (test code = [facility], 1538) [address]: Dietician/Techni ezra ID = [id number] for CHARLA ANTONY SARS-CoV2/RT-PCR (Asymptomatic ONLY)2020-05-23 12:07:00 Test Item Value Reference Range Interpretation Comments SARS-COV2/RT-PCR Negative Not Detected, (test code = Negative, See 59999-0) external report for linked test SARS-COV-2 [facility] PERFORMING LAB (test code = 88589-7) MICHELLE (test code = Negative result for this MICHELLE) test determines that SARS-CoV-2 RNA was not present in the [...] of the Act. Fact Sheet for Healthcare Providers:https://www.[employer] idel.com/sites/default/f kiley/product/documents/F act_Sheet_HC_Providers_L mod_IBLT-FuG-8.pdf Fact Sheet for Healthcare Patients:https://www.jerome del.[employer]/sites/default/fi les/product/documents/Fa ct_Sheet_Patients_Lyra_S ARS-CoV-2.pdf Performing Laboratory:[facility] [place] [address] [facility])2020-05-23 12:07:00 Test Item Value Reference Range Interpretation Comments SARS-COV2/RT-PCR (test Negative Not Detected, Negative, code = 3461110) See external report for linked test SARS-COV-2 PERFORMING LAB [facility] (test code = 2971726) Negative result for this test determines that SARS-CoV-2 RNA was not present in the specimen above the Limit of Detection (LOD). However, Negative results do not preclude SARS-CoV-2 infection and should not be used as the sole basis for treatment or patient management decisions. Negative results mustbe combined with clinical observations, patient history, and epidemiological information. A false negative result may occur if a specimen is improperly collected, transported or handled. A false negative result should be considered if patient's recent exposures or clinical presentation indicate that COVID-19 (SARS-CoV-2) is likely and diagnostic tests for other causes of illness are negative. Re-testing should be considered in cases of suspected false negatives.The limit of detection for this assay is 800 copies/mL.This SARS CoV-2 test is a real-time RT-PCR test intended for the qualitative detection of nucleic acid from SARS-CoV-2 in a nasopharyngeal swab specimen collected from individuals susp ected of COVID-19 by their healthcare provider.This test has not been Food and Drug [...] is revoked under Section 564(g) of the Act.Fact Sheet for Healthcare Providers:https://www.quidel.com/sites/default/files/product/documents/Fact_Shee n_ZQ_Fpyoxiary_Lyqz_AIVC-VhZ-7.pdfFact Sheet for Healthcare Patients:https://www.Network Visionidel.com/sites/default/files/product/ documents/Bjmv_Kweic_Fqafwrhx_Apem_LWOB-LjD-2.pdfPerforming Laboratory:[facility] [place], [place] [address]URPG-QZNTRSS METER 2020-05-23 08:01:00 Test Item Value Reference Range Interpretation Comments POC-GLUCOSE METER 132 mg/dL 70-110 H : TESTED Raheel Buenrostro [facility] 67[address] (BEAKER) (test code = JINA Galdamez [facility], 1538) [address]: Dietician/Techni ezra ID = [id number] for CHARLA ANTONY BASIC METABOLIC [id number] 06:41:00 Test Item Value Reference Range Interpretation Comments SODIUM (BEAKER) 134 meq/L 136-145 L (test code = 381) POTASSIUM (BEAKER) 3.3 meq/L 3.5-5.1 L (test code = 379) CHLORIDE (BEAKER) 97 meq/L 98-107 L (test code = 382) CO2 (BEAKER) (test 28 meq/L 22-29 code = 355) BLOOD UREA NITROGEN 12 mg/dL 7-21 (BEAKER) (test code = 354) CREATININE (BEAKER) 0.68 mg/dL 0.57-1.25 (test code = 358) GLUCOSE RANDOM 146 mg/dL 70-105 H (BEAKER) (test code = 652) CALCIUM (BEAKER) 8.3 mg/dL 8.4-10.2 L (test code = 697) EGFR (BEAKER) (test 113 mL/min/1.73 ESTIM ATED GFR IS code = 1092) sq m NOT ACCURATE CREATININE CLEARANCE IN PREDICTING GLOMERULAR FILTRATION RATE . ESTIMATED GFR I S NOT APPLICABLE FOR DIALYSIS PATIEN TS. Dietician ID - EDASICBC W/PLT COUNT & AUTO [id number] 06:08:00 Test Item Value Reference Range Interpretation Comments WHITE BLOOD CELL COUNT (BEAKER) 10.2 K/ L 3.5-10.5 (test code = 775) RED BLOOD CELL COUNT (BEAKER) 4.26 M/ L 4.63-6.08 L (test code = 761) HEMOGLOBIN (BEAKER) (test code = 12.3 GM/DL 13.7-17.5 L 410) HEMATOCRIT (BEAKER) (test code = 38.2 % 40.1-51.0 L 411) MEAN CORPUSCULAR VOLUME (BEAKER) 89.7 fL 79.0-92.2 (test code = 753) MEAN CORPUSCULAR HEMOGLOBIN 28.9 pg 25.7-32.2 (BEAKER) (test code = 751) MEAN CORPUSCULAR HEMOGLOBIN CONC 32.2 GM/DL 32.3-36.5 L (BEAKER) (test code = 752) RED CELL DISTRIBUTION WIDTH 12.8 % 11.6-14.4 (BEAKER) (test code = 412) PLATELET COUNT (BEAKER) (test 299 K/CU MM 150-450 code = 756) MEAN PLATELET VOLUME (BEAKER) 8.9 fL 9.4-12.4 L (test code = 754) NUCLEATED RED BLOOD CELLS 0 /100 WBC 0-0 (BEAKER) (test code = 413) NEUTROPHILS RELATIVE PERCENT 70 % (BEAKER) (test code = 429) LYMPHOCYTES RELATIVE PERCENT 13 % (BEAKER) (test code = 430) MONOCYTES RELATIVE PERCENT 11 % (BEAKER) (test code = 431) EOSINOPHILS RELATIVE PERCENT 4 % (BEAKER) (test code = 432) BASOPHILS RELATIVE PERCENT 1 % (BEAKER) (test code = 437) NEUTROPHILS ABSOLUTE COUNT 7.19 K/ L 1.78-5.38 H (BEAKER) (test code = 670) LYMPHOCYTES ABSOLUTE COUNT 1.33 K/ L 1.32-3.57 (BEAKER) (test code = 414) MONOCYTES ABSOLUTE COUNT (BEAKER) 1.08 K/ L 0.30-0.82 H (test code = 415) EOSINOPHILS ABSOLUTE COUNT 0.39 K/ L 0.04-0.54 (BEAKER) (test code = 416) BASOPHILS ABSOLUTE COUNT (BEAKER) 0.07 K/ L 0.01-0.08 (test code = 417) IMMATURE GRANULOCYTES-RELATIVE 2 % 0-1 H PERCENT (BEAKER) (test code = 2801) POCT-GLUCOSE [id number] 21:11:00 Test Item Value Reference Range Interpretation Comments POC-GLUCOSE METER 158 mg/dL 70-110 H : TESTED A T [facility] 6720 (BEAKER) (test code = [facility] Y[facility], 1538) [address]: Dietician/Techni ezra ID = [id number] for SHEA DAJUANBILLY MAULIKRaheel POCT-GLUCOSE [id number] 17:33:00 Test Item Value Reference Range Interpretation Comments POC-GLUCOSE METER 120 mg/dL 70-110 H : TESTED A T [facility] 6720 (BEAKER) (test code = [facility], 153) [address]: Dietician/Techni ezra ID = [id number] for PRINCE MAYORGA POCT-GLUCOSE [id number] 14:16:00 Test Item Value Reference Range Interpretation Comments POC-GLUCOSE METER 203 mg/dL 70-110 H : TESTED A T [facility] 6720 (BEAKER) (test code = [facility], 153) [address]: Dietician/Techni ezra ID = [id number] for Kaylee Saha POCT-GLUCOSE [id number] 09:01:00 Test Item Value Reference Range Interpretation Comments POC-GLUCOSE METER 159 mg/dL 70-110 H : TESTED A T [facility] 6720 (BEAKER) (test code = [facility], 153) [address]: Dietician/Techni ezra ID = [id number] for RO PRINCE BENNETT CBC W/PLT COUNT & AUTO [id number] 07:06:00 Test Item Value Reference Range Interpretation Comments WHITE BLOOD CELL COUNT (BEAKER) 12.2 K/ L 3.5-10.5 H (test code = 775) RED BLOOD CELL COUNT (BEAKER) 4.08 M/ L 4.63-6.08 L (test code = 761) HEMOGLOBIN (BEAKER) (test code = 12.1 GM/DL 13.7-17.5 L 410) HEMATOCRIT (BEAKER) (test code = 37.0 % 40.1-51.0 L 411) MEAN CORPUSCULAR VOLUME (BEAKER) 90.7 fL 79.0-92.2 (test code = 753) MEAN CORPUSCULAR HEMOGLOBIN 29.7 pg 25.7-32.2 (BEAKER) (test code = 751) MEAN CORPUSCULAR HEMOGLOBIN CONC 32.7 GM/DL 32.3-36.5 (BEAKER) (test code = 752) RED CELL DISTRIBUTION WIDTH 12.8 % 11.6-14.4 (BEAKER) (test code = 412) PLATELET COUNT (BEAKER) (test 308 K/CU MM 150-450 code = 756) MEAN PLATELET VOLUME (BEAKER) 9.3 fL 9.4-12.4 L (test code = 754) NUCLEATED RED BLOOD CELLS 0 /100 WBC 0-0 (BEAKER) (test code = 413) NEUTROPHILS RELATIVE PERCENT 73 % (BEAKER) (test code = 429) LYMPHOCYTES RELATIVE PERCENT 11 % (BEAKER) (test code = 430) MONOCYTES RELATIVE PERCENT 11 % (BEAKER) (test code = 431) EOSINOPHILS RELATIVE PERCENT 4 % (BEAKER) (test code = 432) BASOPHILS RELATIVE PERCENT 1 % (BEAKER) (test code = 437) NEUTROPHILS ABSOLUTE COUNT 8.93 K/ L 1.78-5.38 H (BEAKER) (test code = 670) LYMPHOCYTES ABSOLUTE COUNT 1.29 K/ L 1.32-3.57 L (BEAKER) (test code = 414) MONOCYTES ABSOLUTE COUNT (BEAKER) 1.31 K/ L 0.30-0.82 H (test code = 415) EOSINOPHILS ABSOLUTE COUNT 0.47 K/ L 0.04-0.54 (BEAKER) (test code = 416) BASOPHILS ABSOLUTE COUNT (BEAKER) 0.06 K/ L 0.01-0.08 (test code = 417) IMMATURE GRANULOCYTES-RELATIVE 2 % 0-1 H PERCENT (BEAKER) (test code = 2801) BASIC METABOLIC [id number] 07:04:00 Test Item Value Reference Range Interpretation Comments SODIUM (BEAKER) 134 meq/L 136-145 L (test code = 381) POTASSIUM (BEAKER) 3.7 meq/L 3.5-5.1 (test code = 379) CHLORIDE (BEAKER) 98 meq/L 98-107 (test code = 382) CO2 (BEAKER) (test 29 meq/L 22-29 code = 355) BLOOD UREA NITROGEN 13 mg/dL 7-21 (BEAKER) (test code = 354) CREATININE (BEAKER) 0.68 mg/dL 0.57-1.25 (test code = 358) GLUCOSE RANDOM 156 mg/dL 70-105 H (BEAKER) (test code = 652) CALCIUM (BEAKER) 8.3 mg/dL 8.4-10.2 L (test code = 697) EGFR (BEAKER) (test 113 mL/min/1.73 ESTIM ATED GFR IS code = 1092) sq m NOT ACCURATE CREATININE CLEARANCE IN PREDICTING GLOMERULAR FILTRATION RATE . ESTIMATED GFR I S NOT APPLICABLE FOR DIALYSIS PATIEN TS. Dietician ID - EDASIPOCT-GLUCOSE [id number] 21:38:00 Test Item Value Reference Range Interpretation Comments POC-GLUCOSE METER 155 mg/dL 70-110 H : TESTED A T [facility] 6720 (BEAKER) (test code = [facility], 1538) [address]: Dietician/Techni ezra ID = [id number] for MARIUSZ COLEMAN POCT-GLUCOSE [id number] 18:02:00 Test Item Value Reference Range Interpretation Comments POC-GLUCOSE METER 157 mg/dL 70-110 H : TESTED A T [facility] 6720 (BEAKER) (test code = [facility], 1538) [address]: Dietician/Techni ezra ID = [id number] for PATTI ARREDONDO [id number] 14:00:00 Test Item Value Reference Range Interpretation Comments SODIUM (BEAKER) (test code = 381) 128 meq/L 136-145 L Dietician ID - DEON FPOCT-GLUCOSE [id number] 12:25:00 Test Item Value Reference Range Interpretation Comments POC-GLUCOSE METER 238 mg/dL 70-110 H : TESTED A T [facility] 6720 (BEAKER) (test code = [facility], 1538) [address]: Dietician/Techni ezra ID = [id number] for HAILEY ART, PATTI Lipid [id number] 11:22:00 Test Item Value Reference Range Interpretation Comments Triglycerides (test 72 mg/dL code = 2571-8) Cholesterol (test code 138 mg/dL = 2093-3) HDL (test code = 43 mg/dL 5-9) LDL Calculated (test 81 mg/dL code = 31499-1) MICHELLE (test code = MICHELLE) Triglyceride Reference Range: Low Risk <150 Borderline 150-199 High Risk 200-499 Very High Risk >=500 Cholesterol Reference Range: Low Risk <200 Borderline 200-239 High Risk >240 HDL Cholesterol Reference Range: Low Risk >=60 High Risk <40 LDL Cholesterol Reference Range: Optimal <100 Near Optimal 100-129 Borderline 130-159 High 160-189 Very High >=190 Dietician ID - DEON [facility] [id number] 11:22:00 Test Item Value Reference Range Interpretation Comments TRIGLYCERIDES (BEAKER) (test code = 72 mg/dL 540) CHOLESTEROL (BEAKER) (test code = 138 mg/dL 631) HDL CHOLESTEROL (BEAKER) (test code 43 mg/dL = 976) LDL CHOLESTEROL CALCULATED (AKER) 81 mg/dL (test code = 633) Triglyceride Reference Range: Low Risk <150 Borderline 150-199 High Risk 200-499 Very High Risk >=500Cholesterol Reference Range: Low Risk <200 Borderline 200-239 High Risk >240HDL Cholesterol Reference Range: Low Risk >=60 High Risk <40LDL Cholesterol Reference Range: Optimal <100 Near Optimal 100-129 Borderline 130-159 High 160-189 Very High >=190 Dietician ID - DEON FCreatinine, random [id number] 10:56:00 Test Item Value Reference Range Interpretation Comments Creatinine, Ur 78.2 mg/dL (test code = 2161-8) MICHELLE (test code = Reference Range: No MICHELLE) NormalsOperator ID Jere Meyer [facility] Nitrogen, random [id number] 10:56:00 Test Item Value Reference Range Interpretation Comments Urea Nitrogen, Ur 775 mg/dL (test code = 3095-7) MICHELLE (test code = Reference Range: No MICHELLE) NormalsOperator ID - DEON Meyer [facility] CenterCREAT[facility]INE, RANDOM [id number] 10:56:00 Test Item Value Reference Range Interpretation Comments CREATININE URINE (BEAKER) (test 78.2 mg/dL code = 375) Reference Range: No NormalsOperator ID Jere CHAVARRIA FUREA NITROGEN, RANDOM URINE 2020-05-21 10:56:00 Test Item Value Reference Range Interpretation Comments UREA NITROGEN URINE (BEAKER) (test 775 mg/dL code = 538) Reference Range: No NormalsOperator ID - DEON FPOCT-GLUCOSE [id number] 09:47:00 Test Item Value Reference Range Interpretation Comments POC-GLUCOSE METER 181 mg/dL 70-110 H : TESTED A T [facility] 6720 (BEAKER) (test code = [facility], 1538) [address]: Dietician/Techni ezra ID = [id number] for AK INSONU, PATTI Manual [id number] 06:56:00 Test Item Value Reference Range Interpretation Comments % Neutros (test code = 86 % 2816) % Lymphs (test code = 5 % 2817) % Monos (test code = 2818) 8 % % Atypical Lymphs (test 1 % 0-0 H code = 2829) # Neutros (test code = 12.30 K/ul 1.78-5.38 H 2830) # Lymphs (test code = 0.72 K/ul 1.32-3.57 L 2831) # Monos (test code = 2832) 1.14 K/uL 0.3-0.82 H # Atypical Lymphs (test 0.14 K/uL 0-0 H code = 2858) Total Counted (test code = 100 1351) WBC Morphology (test code Normal = 487) Platelet Morphology (test Normal code = 486) Anisocytosis (test code = 1+ few 961) Microcytes (test code = 1+ few 965) Artifact (test code = Present 3432) Platelet Conc (test code = Adequate 3438) MICHELLE (test code = MICHELLE) Dietician ID - Brandtden comments: Slide comments: Lab Interpretation (test Abnormal code = 43062-9) [facility] W/PLT COUNT & AUTO [id number] 06:56:00 Test Item Value Reference Range Interpretation Comments WHITE BLOOD CELL COUNT (BEAKER) 14.3 K/ L 3.5-10.5 H (test code = 775) RED BLOOD CELL COUNT (BEAKER) 4.19 M/ L 4.63-6.08 L (test code = 761) HEMOGLOBIN (BEAKER) (test code = 12.3 GM/DL 13.7-17.5 L 410) HEMATOCRIT (BEAKER) (test code = 37.9 % 40.1-51.0 L 411) MEAN CORPUSCULAR VOLUME (BEAKER) 90.5 fL 79.0-92.2 (test code = 753) MEAN CORPUSCULAR HEMOGLOBIN 29.4 pg 25.7-32.2 (BEAKER) (test code = 751) MEAN CORPUSCULAR HEMOGLOBIN CONC 32.5 GM/DL 32.3-36.5 (BEAKER) (test code = 752) RED CELL DISTRIBUTION WIDTH 13.2 % 11.6-14.4 (BEAKER) (test code = 412) PLATELET COUNT (BEAKER) (test 282 K/CU MM 150-450 code = 756) MEAN PLATELET VOLUME (BEAKER) 9.1 fL 9.4-12.4 L (test code = 754) NUCLEATED RED BLOOD CELLS 0 /100 WBC 0-0 (BEAKER) (test code = 413) (CELLAVISION MANUAL DIFF)2020-05-21 06:56:00 Test Item Value Reference Range Interpretation Comments NEUTROPHILS - REL 86 % (CELLAVISION)(BEAKER) (test code = 2816) LYMPHOCYTES - REL 5 % (CELLAVISION)(BEAKER) (test code = 2817) MONOCYTES - REL 8 % (CELLAVISION)(BEAKER) (test code = 2818) ATYPICAL LYMPHOCYTES - REL 1 % 0-0 H (CELLAVISION)(BEAKER) (test code = 2829) NEUTROPHILS - ABS 12.30 K/ul 1.78-5.38 H (CELLAVISION)(BEAKER) (test code = 2830) LYMPHOCYTES - ABS 0.72 K/ul 1.32-3.57 L (CELLAVISION)(BEAKER) (test code = 2831) MONOCYTES - ABS 1.14 K/uL 0.30-0.82 H (CELLAVISION)(BEAKER) (test code = 2832) ATYPICAL LYMPHOCYTES - ABS 0.14 K/uL 0.00-0.00 H (CELLAVISION)(BEAKER) (test code = 2858) TOTAL COUNTED (BEAKER) (test code 100 = 1351) WBC MORPHOLOGY (BEAKER) (test code Normal = 487) PLT MORPHOLOGY (BEAKER) (test code Normal = 486) ANISOCYTOSIS (BEAKER) (test code = 1+ few 961) MICROCYTES (BEAKER) (test code = 1+ few 965) ARTIFACT (CELLAVISION)(BEAKER) Present (test code = 3432) PLATELET CONCENTRATION Adequate (CELLAVISION)(BEAKER) (test code = 3438) Dietician ID - Isaias comments: Slide comments:BASIC METABOLIC [id number] 04:17:00 Test Item Value Reference Range Interpretation Comments SODIUM (BEAKER) 126 meq/L 136-145 L (test code = 381) POTASSIUM (BEAKER) 3.9 meq/L 3.5-5.1 (test code = 379) CHLORIDE (BEAKER) 94 meq/L 98-107 L (test code = 382) CO2 (BEAKER) (test 24 meq/L 22-29 code = 355) BLOOD UREA NITROGEN 13 mg/dL 7-21 (BEAKER) (test code = 354) CREATININE (BEAKER) 0.75 mg/dL 0.57-1.25 (test code = 358) GLUCOSE RANDOM 203 mg/dL 70-105 H ([facility]) (test code = 652) CALCIUM (BEAKER) 7.8 mg/dL 8.4-10.2 L (test code = 697) EGFR (BEBANNER) (test 101 mL/min/1.73 ESTIM ATED GFR IS code = 1092) sq m NOT ACCURATE CREATININE CLEARANCE IN PREDICTING GLOMERULAR FILTRATION RATE . ESTIMATED GFR I S NOT APPLICABLE FOR DIALYSIS PATIEN TS. Dietician ID - ADMINPOCT-GLUCOSE [id number] 21:44:00 Test Item Value Reference Range Interpretation Comments POC-GLUCOSE METER 192 mg/dL 70-110 H : Notified RN/MD: ([facility]) (test code = [facility], [address]: Dietician/Techni ezra ID = [id number] for LATHBRIDGE, PRASHANT ICE POCT-GLUCOSE [id number] 17:58:00 Test Item Value Reference Range Interpretation Comments POC-GLUCOSE METER 204 mg/dL 70-110 H : TESTED A T [facility]20 ([facility]) (test code [facility], = 1538) [address]: Dietician/Techni ezra ID = [id number] for TSEG GAI, TSIGHEREDA POCT-GLUCOSE [id number] 12:39:00 Test Item Value Reference Range Interpretation Comments POC-GLUCOSE METER 198 mg/dL 70-110 H : TESTED A T [facility] [address]20 ([facility]) (test code = [facility], 153) [address]: Dietician/Techni ezra ID = [id number] for AK INSONU, PATTI POCT-GLUCOSE [id number] 07:48:00 Test Item Value Reference Range Interpretation Comments POC-GLUCOSE METER 196 mg/dL 70-110 H : TESTED A T BSC 6720 ([facility]) (test code = [facility], 1538) [id number]: Dietician/Techni ezra ID = [id number] for PATTI ARREDONDO BASIC METABOLIC [id number] 07:28:00 Test Item Value Reference Range Interpretation Comments SODIUM (BEAKER) 130 meq/L 136-145 L (test code = 381) POTASSIUM (BEAKER) 3.8 meq/L 3.5-5.1 (test code = 379) CHLORIDE (BEAKER) 99 meq/L 98-107 (test code = 382) CO2 (BEAKER) (test 22 meq/L 22-29 code = 355) BLOOD UREA NITROGEN 11 mg/dL 7-21 (BEAKER) (test code = 354) CREATININE (BEAKER) 0.75 mg/dL 0.57-1.25 (test code = 358) GLUCOSE RANDOM 191 mg/dL 70-105 H (BEAKER) (test code = 652) CALCIUM (BEAKER) 7.7 mg/dL 8.4-10.2 L (test code = 697) EGFR (BEAKER) (test 101 mL/min/1.73 ESTIM ATED GFR IS code = 1092) sq m NOT ACCURATE CREATININE CLEARANCE IN PREDICTING GLOMERULAR FILTRATION RATE . ESTIMATED GFR I S NOT APPLICABLE FOR DIALYSIS PATIEN TS. Dietician ID - DBCBC W/PLT COUNT & AUTO [id number] 05:28:00 Test Item Value Reference Range Interpretation Comments WHITE BLOOD CELL COUNT (BEAKER) 13.6 K/ L 3.5-10.5 H (test code = 775) RED BLOOD CELL COUNT (BEAKER) 4.43 M/ L 4.63-6.08 L (test code = 761) HEMOGLOBIN (BEAKER) (test code = 12.9 GM/DL 13.7-17.5 L 410) HEMATOCRIT (BEAKER) (test code = 40.3 % 40.1-51.0 411) MEAN CORPUSCULAR VOLUME (BEAKER) 91.0 fL 79.0-92.2 (test code = 753) MEAN CORPUSCULAR HEMOGLOBIN 29.1 pg 25.7-32.2 (BEAKER) (test code = 751) MEAN CORPUSCULAR HEMOGLOBIN CONC 32.0 GM/DL 32.3-36.5 L (BEAKER) (test code = 752) RED CELL DISTRIBUTION WIDTH 13.1 % 11.6-14.4 (BEAKER) (test code = 412) PLATELET COUNT (BEAKER) (test 272 K/CU MM 150-450 code = 756) MEAN PLATELET VOLUME (BEAKER) 9.1 fL 9.4-12.4 L (test code = 754) NUCLEATED RED BLOOD CELLS 0 /100 WBC 0-0 (BEAKER) (test code = 413) NEUTROPHILS RELATIVE PERCENT 76 % (BEAKER) (test code = 429) LYMPHOCYTES RELATIVE PERCENT 10 % (BEAKER) (test code = 430) MONOCYTES RELATIVE PERCENT 11 % (BEAKER) (test code = 431) EOSINOPHILS RELATIVE PERCENT 1 % (BEAKER) (test code = 432) BASOPHILS RELATIVE PERCENT 0 % (BEAKER) (test code = 437) NEUTROPHILS ABSOLUTE COUNT 10.31 K/ L 1.78-5.38 H (BEAKER) (test code = 670) LYMPHOCYTES ABSOLUTE COUNT 1.30 K/ L 1.32-3.57 L (BEAKER) (test code = 414) MONOCYTES ABSOLUTE COUNT (BEAKER) 1.47 K/ L 0.30-0.82 H (test code = 415) EOSINOPHILS ABSOLUTE COUNT 0.13 K/ L 0.04-0.54 (BEAKER) (test code = 416) BASOPHILS ABSOLUTE COUNT (BEAKER) 0.06 K/ L 0.01-0.08 (test code = 417) IMMATURE GRANULOCYTES-RELATIVE 2 % 0-1 H PERCENT (BEAKER) (test code = 2801) POCT-GLUCOSE [id number] 21:13:00 Test Item Value Reference Range Interpretation Comments POC-GLUCOSE METER 194 mg/dL 70-110 H : Notified RN/MD: (GOGO) (test code = TESTED AT [facility] 6720 1538) [facility] [facility] [id number]: Dietician/Techni ezra ID = [id number] for [place], PRASHANT ICE FL, FLUORO, NON-SPECIFIC, UP TO 1 [id number] 12:36:00Reason for exam:- >thoracic stenosis [facility] : 1945 Sex: MFluoroscopic unit utilized for a procedure performed in the OR. No interpretation was requested. Refer to the operative report for findings. Refer to PACS for patient radiation dose information.FL fluoro non-specific up to 1 [id number] 12:36:00 Interface, External Ris In - 05/19/2020 1:02 PM CSTFluoroscopic unit utilized for a procedure performed in the OR. No interpretation was requested. Refer to the operative report for findings. Referto PACS for patient radiation dose information.[facility] CenterPOCT-GLUCOSE [id number] 08:27:00 Test Item Value Reference Range Interpretation Comments POC-GLUCOSE METER 189 mg/dL 70-110 H : TESTED A T [facility] 6720 (BEAKER) (test code = BANNERDEVANTE Galdamez [facility], 1538) [address]: Dietician/Techni ezra ID = [id number] for ALEXANDER TATUM BASIC METABOLIC [id number] 04:36:00 Test Item Value Reference Range Interpretation Comments SODIUM (BEAKER) 132 meq/L 136-145 L (test code = 381) POTASSIUM (BEAKER) 4.0 meq/L 3.5-5.1 Specimen slightly (test code = 379) hemolyzed CHLORIDE (BEAKER) 99 meq/L 98-107 (test code = 382) CO2 (BEAKER) (test 25 meq/L 22-29 code = 355) BLOOD UREA NITROGEN 10 mg/dL 7-21 (BEAKER) (test code = 354) CREATININE (BEAKER) 0.73 mg/dL 0.57-1.25 Specimen slightly (test code = 358) hemolyzed GLUCOSE RANDOM 179 mg/dL 70-105 H (BEAKER) (test code = 652) CALCIUM (BEAKER) 8.3 mg/dL 8.4-10.2 L (test code = 697) EGFR (BEAKER) (test 104 mL/min/1.73 ESTIM ATED GFR IS code = 1092) sq m NOT ACCURATE CREATININE CLEARANCE IN PREDICTING GLOMERULAR FILTRATION RATE . ESTIMATED GFR I S NOT APPLICABLE FOR DIALYSIS PATIEN TS. Dietician ID - CHANO MCBC W/PLT COUNT & AUTO [id number] 04:24:00 Test Item Value Reference Range Interpretation Comments WHITE BLOOD CELL COUNT (BEAKER) 13.0 K/ L 3.5-10.5 H (test code = 775) RED BLOOD CELL COUNT (BEAKER) 4.66 M/ L 4.63-6.08 (test code = 761) HEMOGLOBIN (BEAKER) (test code = 13.9 GM/DL 13.7-17.5 410) HEMATOCRIT (BEAKER) (test code = 41.8 % 40.1-51.0 411) MEAN CORPUSCULAR VOLUME (BEAKER) 89.7 fL 79.0-92.2 (test code = 753) MEAN CORPUSCULAR HEMOGLOBIN 29.8 pg 25.7-32.2 (BEAKER) (test code = 751) MEAN CORPUSCULAR HEMOGLOBIN CONC 33.3 GM/DL 32.3-36.5 (BEAKER) (test code = 752) RED CELL DISTRIBUTION WIDTH 12.9 % 11.6-14.4 (BEAKER) (test code = 412) PLATELET COUNT (BEAKER) (test 282 K/CU MM 150-450 code = 756) MEAN PLATELET VOLUME (BEAKER) 9.2 fL 9.4-12.4 L (test code = 754) NUCLEATED RED BLOOD CELLS 0 /100 WBC 0-0 (BEAKER) (test code = 413) NEUTROPHILS RELATIVE PERCENT 71 % (BEAKER) (test code = 429) LYMPHOCYTES RELATIVE PERCENT 12 % (BEAKER) (test code = 430) MONOCYTES RELATIVE PERCENT 11 % (BEAKER) (test code = 431) EOSINOPHILS RELATIVE PERCENT 3 % (BEAKER) (test code = 432) BASOPHILS RELATIVE PERCENT 1 % (BEAKER) (test code = 437) NEUTROPHILS ABSOLUTE COUNT 9.19 K/ L 1.78-5.38 H (BEAKER) (test code = 670) LYMPHOCYTES ABSOLUTE COUNT 1.60 K/ L 1.32-3.57 (BEAKER) (test code = 414) MONOCYTES ABSOLUTE COUNT (BEAKER) 1.44 K/ L 0.30-0.82 H (test code = 415) EOSINOPHILS ABSOLUTE COUNT 0.40 K/ L 0.04-0.54 (BEAKER) (test code = 416) BASOPHILS ABSOLUTE COUNT (BEAKER) 0.11 K/ L 0.01-0.08 H (test code = 417) IMMATURE GRANULOCYTES-RELATIVE 2 % 0-1 H PERCENT (BEAKER) (test code = 2801) Prepare Leuko-Red [id number] 23:37:00 Test Item Value Reference Range Interpretation Comments CROSSMATCH (test code = 2264) COMPATIBLE Unit ABO (test code = O Neg 0872390) UNIT NUMBER (test code = [id number] 934-0) Status (test code = 7779634) READY Blood Bank Product (test code RED BLOOD CELLS = 2263) PRODUCT CODE (test code = F6944T65 933-2) [facility] CenterABORH, [id number] 23:35:00 Test Item Value Reference Range Interpretation Comments ABO Grouping (test code = 2588) O Rh Factor (test code = 2589) NEG [facility]2D Echo W/Doppler(CW/PW/Color)2020-05-18 23:05:57 Ejection FractionSLEH ECHO HEARTLAB MKCKESSON CPACSInterface, External Ris In - 05/18/2020 11:06 PM CSTTransthoracic Echocardiography Report (TTE) Demographics Patient Name CHARLIE KENDALL Date of Study 05/18/2020 Gender Male Visit Number [id number] Race Unknown Room Number 2246 Number Date of 1945 Referring Physician Noemi Tejeda NP Age 74 year(s) Life Consultant Irene Hernandez 3D Animator Reji Rollins MD CiolanPhysician Procedure Type of Study TTE procedure:2DECHO W DOPPLER(CW/PW/COLOR) (STAT) Indications:Suspected hypertensive heart disease.Clinical HistorySmokerHGB 13.6HCT 41.2 %Contrast Medium: Definity.Height: 74 inches Weight: 127.01 kg (280 lbs) BSA: 2.51 m^2 BMI: 35.95kg/m^2HR: 97 bpm BP: 149/78 mmHg Summary 1. [...] systolic PA pressure; inadequate TR velocity signal. 3. No significant valvular abnormalities. Previous Study No prior exam available for comparison. Signature Findings Rhythm/BP Sinus tachycardia during the exam. Left Ventricle The left ventricle is chamber size (by vol index) is normal (male - LVED vol - 34-74ml/m2). Mild concentric LV hypertrophy. Basal inferior and basal inferoseptum appear hypokinetic. The other segments contract normally. Global LV systolic function normal . LVEF by Bear's method of disk assessment is normal (55-60%) . The LVEF was measured using Bear's bi- plane method bud . Grade 1 diastolic dysfunction (impaired relaxation and low-normal LA pressure). LV endocardium is [...] structure and function. Aorta Aortic root size (S Inus of Valsalva diameter) is normal . Pericardium An echo lucentspace is noted consistent with prominent pericardial fat pad. No significant pericardial effusion is visualized. IVC/SVC/PA/PV/Pleural The right upper pulmonary vein (RUPV) is normal . The estimated RA pressure by IVC dynamics 0-5mm Hg . Chambers/Structures Left Atrium LA Volume: 87.03 ml LA Area: 25.06 cm^2 LAVol. Index: 35 ml/m^2 Left Ventricle LVIDd: 4.61 [...] LVOT CO: 7.3 l/min LVOT CI: 2.91 l/min/m^2CIndian Valley HospitalCT-GLUCOSE [id number] 21:24:00 Test Item Value Reference Range Interpretation Comments POC-GLUCOSE METER 201 mg/dL 70-110 H : Notified RN/MD: (GOGO) (test code = TESTED AT [facility] 6720 1538) FIDEL [facility], [address]: Dietician/Techni ezra ID = [id number] for LATPRASHANT FERNANDEZ ICE Vitamin D, [id number] 19:18:00 Test Item Value Reference Range Interpretation Comments Vitamin D 25-Hydroxy 17.2 ng/mL 6.6-49.9 (test code = 2764) MICHELLE (test code = MICHELLE) Effective 04/17/2017: Reference Range ChangeNew: 6.6-49.9 ng/mL Previous: 13.0-47.8 ng/mL Recommended Vitamin D Target Range: 30.0-40.0 ng/mLOperator ID - BS Lab Interpretation (test Normal code = 18692-0) [facility] CenterVITAMIN D, [id number] 19:18:00 Test Item Value Reference Range Interpretation Comments VITAMIN D 25-OH (GIOVANNIAKER) (test 17.2 ng/mL 6.6-49.9 code = 2764) Effective 04/17/2017: Reference Range ChangeNew: 6.6-49.9 ng/mL Previous: 13.0-47.8 ng/mLRecommended Vitamin D Target Range: 30.0-40.0 ng/mLOperator ID - BSSodium, random [id number] 17:15:00 Test Item Value Reference Range Interpretation Comments Sodium Urine (test 35 meq/L code = 2955-3) MICHELLE (test code = Reference Range: No MICHELLE) NormalsOperator ID - BS [facility] HospitalODIUM, RANDOM [id number] 17:15:00 Test Item Value Reference Range Interpretation Comments SODIUM URINE (BEAKER) (test code = 35 meq/L 243) Reference Range: No NormalsOperator ID - BSPOCT-GLUCOSE [id number] 17:06:00 Test Item Value Reference Range Interpretation Comments POC-GLUCOSE METER 185 mg/dL 70-110 H : TESTED A T [facility] 6720 (GOGO) (test code = JINA Rudolph [facility], 1538) [address]: Dietician/Techni ezra ID = [id number] for RO DGERS, JAMECA Osmolality, [id number] 15:32:00 Test Item Value Reference Range Interpretation Comments Osmolality, Ur (test code = 295 50-1,200 mOsm/kg mOsm/kg 2695-5) Lab Interpretation (test code Normal = 58357-0) [facility] CenterOSMOLALITY, [id number] 15:32:00 Test Item Value Reference Range Interpretation Comments OSMOLALITY URINE (BEAKER) (test 295 mOsm/kg 50-1,200 mOsm/kg code = 614) POCT-GLUCOSE [id number] 12:51:00 Test Item Value Reference Range Interpretation Comments POC-GLUCOSE METER 176 mg/dL 70-110 H : TESTED A T [facility] 6720 (BEAKER) (test code = [employer] [facility], 1538) [address]: Dietician/Techni ezra ID = [id number] for RO DGERS, JAMECA Osmolality, [id number] 11:53:00 Test Item Value Reference Range Interpretation Comments Osmolality Serum (test code = 274 275- 295 mOsm/kg L 2692-2) Lab Interpretation (test code = Abnormal 02850-2) [facility] CenterOSMOLALITY, [id number] 11:53:00 Test Item Value Reference Range Interpretation Comments OSMOLALITY, SERUM (BEAKER) (test 274 mOsm/kg 275-295 L code = 615) Hemoglobin [id number] 10:28:00 Test Item Value Reference Range Interpretation Comments Hemoglobin A1C (test code = 4548-4) 8.3 % 4.3-6.1 H Lab Interpretation (test code = Abnormal 00044-3) [facility] CenterHEMOGLOBIN [id number] 10:28:00 Test Item Value Reference Range Interpretation Comments HEMOGLOBIN A1C (BEAKER) (test code = 8.3 % 4.3-6.1 H 368) POCT-GLUCOSE [id number] 08:37:00 Test Item Value Reference Range Interpretation Comments POC-GLUCOSE METER 200 mg/dL 70-110 H : TESTED A T [facility] 6720 (BEAKER) (test code = [facility] Givey [facility], 1538) [address]: Dietician/Techni ezra ID = [id number] for RO DGERS, JAMECA BASIC METABOLIC [id number] 07:19:00 Test Item Value Reference Range Interpretation Comments SODIUM (BEAKER) 130 meq/L 136-145 L (test code = 381) POTASSIUM (BEAKER) 3.2 meq/L 3.5-5.1 L (test code = 379) CHLORIDE (BEAKER) 96 meq/L 98-107 L (test code = 382) CO2 (BEAKER) (test 24 meq/L 22-29 code = 355) BLOOD UREA NITROGEN 10 mg/dL 7-21 (BEAKER) (test code = 354) CREATININE (BEAKER) 0.76 mg/dL 0.57-1.25 (test code = 358) GLUCOSE RANDOM 187 mg/dL 70-105 H (BEAKER) (test code = 652) CALCIUM (BEAKER) 8.3 mg/dL 8.4-10.2 L (test code = 697) EGFR (BEAKER) (test 100 mL/min/1.73 ESTIM ATED GFR IS code = 1092) sq m NOT ACCURATE CREATININE CLEARANCE IN PREDICTING GLOMERULAR FILTRATION RATE . ESTIMATED GFR I S NOT APPLICABLE FOR DIALYSIS PATIEN TS. Dietician ID - BSCBC W/PLT COUNT & AUTO [id number] 07:14:00 Test Item Value Reference Range Interpretation Comments WHITE BLOOD CELL COUNT (BEAKER) 13.0 K/ L 3.5-10.5 H (test code = 775) RED BLOOD CELL COUNT (BEAKER) 4.63 M/ L 4.63-6.08 (test code = 761) HEMOGLOBIN (BEAKER) (test code = 13.6 GM/DL 13.7-17.5 L 410) HEMATOCRIT (BEAKER) (test code = 41.2 % 40.1-51.0 411) MEAN CORPUSCULAR VOLUME (BEAKER) 89.0 fL 79.0-92.2 (test code = 753) MEAN CORPUSCULAR HEMOGLOBIN 29.4 pg 25.7-32.2 (BEAKER) (test code = 751) MEAN CORPUSCULAR HEMOGLOBIN CONC 33.0 GM/DL 32.3-36.5 (BEAKER) (test code = 752) RED CELL DISTRIBUTION WIDTH 13.2 % 11.6-14.4 (BEAKER) (test code = 412) PLATELET COUNT (BEAKER) (test 277 K/CU MM 150-450 code = 756) MEAN PLATELET VOLUME (BEAKER) 9.0 fL 9.4-12.4 L (test code = 754) NUCLEATED RED BLOOD CELLS 0 /100 WBC 0-0 (BEAKER) (test code = 413) NEUTROPHILS RELATIVE PERCENT 73 % (BEAKER) (test code = 429) LYMPHOCYTES RELATIVE PERCENT 14 % (BEAKER) (test code = 430) MONOCYTES RELATIVE PERCENT 10 % (BEAKER) (test code = 431) EOSINOPHILS RELATIVE PERCENT 2 % (BEAKER) (test code = 432) BASOPHILS RELATIVE PERCENT 1 % (BEAKER) (test code = 437) NEUTROPHILS ABSOLUTE COUNT 9.44 K/ L 1.78-5.38 H (BEAKER) (test code = 670) LYMPHOCYTES ABSOLUTE COUNT 1.75 K/ L 1.32-3.57 (BEAKER) (test code = 414) MONOCYTES ABSOLUTE COUNT (BEAKER) 1.31 K/ L 0.30-0.82 H (test code = 415) EOSINOPHILS ABSOLUTE COUNT 0.20 K/ L 0.04-0.54 (BEAKER) (test code = 416) BASOPHILS ABSOLUTE COUNT (BEAKER) 0.09 K/ L 0.01-0.08 H (test code = 417) IMMATURE GRANULOCYTES-RELATIVE 1 % 0-1 PERCENT (BEAKER) (test code = 2801) POCT-GLUCOSE [id number] 21:27:00 Test Item Value Reference Range Interpretation Comments POC-GLUCOSE METER 183 mg/dL 70-110 H : TESTED A T [facility] 6720 (BEAKER) (test code = [facility], 153) [address]: Dietician/Techni ezra ID = [id number] for MARIUSZ COLEMAN POCT-GLUCOSE [id number] 18:45:00 Test Item Value Reference Range Interpretation Comments POC-GLUCOSE METER 209 mg/dL 70-110 H : TESTED A T [facility] 6720 (BEAKER) (test code = [facility], 153) [address]: Dietician/Techni ezra ID = [id number] for CHINO ZAMBRANO ALEXANDER SARS-COV2/RT-PCR ([facility])2020-05-17 18:37:00 Test Item Value Reference Range Interpretation Comments SARS-COV2/RT-PCR (test Negative Not Detected, Negative, code = 9931306) See external report for linked test SARS-COV-2 PERFORMING LAB [facility] (test code = 3600438) Negative result for this test determines that SARS-CoV-2 RNA was not present in the specimen above the Limit of Detection (LOD). However, Negative results do not preclude SARS-CoV-2 infection and should not be used as the sole basis for treatment or patient management decisions. Negative results mustbe combined with clinical observations, patient history, and epidemiological information. A false negative result may occur if a specimen is improperly collected, transported or handled. A false negative result should be considered if patient's recent exposures or clinical presentation indicate that COVID-19 (SARS-CoV-2) is likely and diagnostic tests for other causes of illness are negative. Re-testing should be considered in cases of suspected false negatives.The limit of detection for this assay is 100 copies/mL.This SARS CoV-2 test is a real-time RT-PCR test intended for the qualitative detection of nucleic acid from SARS-CoV-2 in a nasopharyngeal swab specimen collected from individuals susp ected of COVID-19 by their healthcare provider.This test has not been Food and Drug [...] is revoked under Section 564(g) of the Act.Testing was performed using the Rushing SARS-CoV-2 assay.Fact Sheet for Healthcare Providers:https://www.Yun Yun.rushing/maye/ OC_SHDV-PlC-3_PHI_Ofpc_Lysuo_12-606015.pdfFact Sheet for Healthcare Patients:https://www.molecular.ab abel/maye/IX_ZZQU-WnQ-5_Cqizedg_Qygl_Wqmuf_YC_49-002400Y6.pdfPerforming Laboratory:[facility] [place] [address] [id number] 15:57:00 Test Item Value Reference Range Interpretation Comments SODIUM (BEAKER) (test code = 381) 132 meq/L 136-145 L Dietician ID - BSLIPID [id number] 15:43:00 Test Item Value Reference Range Interpretation Comments TRIGLYCERIDES (BEAKER) (test code = 152 mg/dL 540) CHOLESTEROL (BEAKER) (test code = 207 mg/dL 631) HDL CHOLESTEROL (BEAKER) (test code 45 mg/dL = 976) LDL CHOLESTEROL CALCULATED (BEAKER) 132 mg/dL (test code = 633) Triglyceride Reference Range: Low Risk <150 Borderline 150-199 High Risk 200-499 Very High Risk >=500Cholesterol Reference Range: Low Risk <200 Borderline 200-239 High Risk >240HDL Cholesterol Reference Range: Low Risk >=60 High Risk <40LDL Cholesterol Reference Range: Optimal <100 Near Optimal 100-129 Borderline 130-159 High 160-189 Very High >=190 Dietician ID - BSECG 12 [id number] 14:38:04Interface, External Ris In - 05/17/2020 2:38 PM CSTVentricular Rate 91 BPMAtrial Rate 91 BPMP-R Inte rval 204 msQRS Duration 158 msQ-T Interval 406 msQTC Calculation(Bazett) 499 msP [place] 40 degreesR [place] 5 degreesT [place] 5 degreesNormal sinus rhythmRight bundle branch blockNonspecific T wave abnormality inferolateral leadsProlonged QTAbnormal ECGWhen compared with ECG of 16-MAY-2020 19:08,No significant change was foundConfirmed by MD QUAN, CORNELIUS ([id number]) on 05/17/2020 2:37:58 [facility] HospitalPlatelet Aggregation: Function [id number] 14:21:00 Test Item Value Reference Range Interpretation Comments Pathologist: (test code Yolie Oglesby, = 2622) (electronic signature) Platelets (test code = 290 150- 450 K/CU MM 2656) ADP (test code = 39 % 62-100 L 41104-0) Platelet Rich Plasma 290 200- 300 k/cu mm (test code = 2134) Plt. Function Screen Decreased Interpretation (test aggregation with ADP code = 5255) which indicates platelet dysfunction that may be due to medication effect, uremia, or other platelet function disorders. Clinical correlation is required. MICHELLE (test code = MICHELLE) Platelet Function Screen results may be falsely low with platelet counts<75,000/cu mm.Dietician ID - [id number] Lab Interpretation (test Abnormal code = 23223-8) [facility] CenterPLATELET AGGREGATION: FUNCTION [id number] 14:21:00 Test Item Value Reference Range Interpretation Comments [id number] Yolie Oglesby, (BEAKER) (test code = MD (electronic 2622) signature) PLATELET COUNT AGG 290 K/CU MM 150-450 (BEAKER) (test code = 2656) ADP (BEAKER) (test code 39 % 62-100 L = 4654) PLATELET RICH 290 k/cu mm 200-300 PLASMA(BEAKER) (test code = 2134) PLATELET FUNCTION SCREEN Decreased aggregation INTERPRETATION (BEAKER) with ADP which (test code = 4655) indicates platelet dysfunction that may be due to medication effect, uremia, or other platelet function disorders. Clinical correlation is required. Platelet Function Screen results may be falsely low with platelet counts<75,000/cu mm.Dietician ID- [id number], SPINE, THORACIC, WITHOUT CONTRAST 2020-05-17 12:10:00Please include down to [id number] Reason for Exam - Click Yes and Enter Reason Below->No [facility] : 1945 Sex: MFINAL REPORT MR Thoracic spine without contrast. CLINICAL HISTORY: Cord compression TECHNIQUE: MRI of the thoracic spine utilizing sagittal T1, T2, and STIR sequences. COMPARISON: CT 05/17/2020 FINDINGS: Please note that after completion of the sagittal sequences, the patient declined further imaging. Therefore axial T1 and T2-weighted sequences were not obtained. Counting from above, a linear transverse fracture is again seen through the upper half of the L1 vertebral body extending through the bilateral posterior elements. There is fluid signal within the cleft of the fracture. There is no significant loss of height of the L1 vertebral body or displacement. There is no associated central canal stenosis. There is no mass effect on the thoracic cord or abnormal cord signal. The conus medullaris terminates at approximately L1. The adjacent anterior inferior corner of the T12 vertebral body also demonstrates focal reactive STIR signal. A subtle linear fracture line is suspected, although this was not evident on the earlier CT. There is no loss of height, and the posterior elements are not involved. There is mild prevertebral edema extending from T9 through L1. The otherthoracic vertebral body heights are maintained. There is a slightly exaggerated lower thoracic kyphosis, but the thoracic alignment is preserved. The thoracic marrow signal is otherwise nonfocal. The other thoracic disc levels are essentially unremarkable without significant degenerative stenosis. IMPRESSION: Acute Chance fracture through the L1 vertebral body and posterior elements. Abnormal STIR signal and a subtle fracture line are also seen in the anterior inferior half of the T12 vertebral body, compatible with an acute fracture. As discussed on the earlier CT report, clinical notes in [facility] sommers ve described the Chance fracture level as T12. This is thought to be due to counting from below. Careful localization should be made prior to surgery. Signed: Deborah Triana MDReport Verified Date/Time: 05/17/2020 12:10:13 Reading Location: [address] Neuro Reading Room MR thoracic spine without IV contrast 2020-05-17 12:10:00Interface, External Ris In - 05/17/2020 12:26 PM CSTFINAL REPORT MR Thoracic spine without contrast. CLINICAL HISTORY: Cord compression TECHNIQUE: MRI of the thoracic spine utilizing sagittal T1, T2, and STIR sequences. COMPARISON: CT 05/17/2020 FINDINGS: Please note that after completion of the sagittal sequences, the patient declined further imaging. Therefore axial T1 and T2-weighted sequences were not obtained. Counting from above, a linear transverse fracture is again seen through the upper half of the L1 vertebral body extending through the bilateral posterior elements.There is fluid signal within the cleft of the fracture. There is no significant loss of height of the L1 vertebral body or displacement. There is no associated central canal stenosis. There is no mass effect on the thoracic cord or abnormal cord signal. The conus medullaris terminates at approximatelyL1. The adjacent anterior inferior corner of the T12 vertebral body also demonstrates focal reactiveSTIR signal. A subtle linear fracture line is suspected, although this was not evident on the earlier CT. There is no loss of height, and the posterior elements are not involved. There is mild prevertebral edema extending from T9 through L1. The other thoracic vertebral body heights are maintained. There is a slightly exaggerated lower thoracic kyphosis, but the thoracic alignment is preserved. The thoracic marrow signal is otherwise nonfocal. The other thoracic disc levels are essentially unremarkable without significant degenerative stenosis. IMPRESSION: Acute Chance fracture through the L1 verteb ral body and posterior elements. Abnormal STIR signal and a subtle fracture line are also seen in the anterior inferior half of the T12 vertebral body, compatible with an acute fracture. As discussed on the earlier CT report, clinical notes in [facility] have described the Chance fracture level as T12. This is thought to be due to counting from below. Careful localization should be made prior to surgery. Signed: Deborah Triana MDReport Verified Date/Time: 05/17/2020 12:10:13 Reading Location: [address] Neuro Reading Room [facility]PO[facility] [id number] 09:00:00 Test Item Value Reference Range Interpretation Comments POC-GLUCOSE METER 212 mg/dL 70-110 H : TESTED A T [facility] 6720 (BEAKER) (test code = JINA Galdamez [place], 1538) [address]: Dietician/Techni ezra ID = [id number] for ALEXANDER TATUM CT, SPINE, CERVICAL, WO [id number] 08:38:00Unlisted Reason for Exam - Click Yes and Enter Reason Below->No [facility] : 1945 Sex: MFINAL REPORT CT Cervical, Thoracic, and Lumbar Spine CLINICAL HISTORY: Cervical disc disorder TECHNIQUE: Contiguous axial images of the cervical, thoracic, and lumbar spine with coronal and sagittal reformations to assess the alignment. This exam was performed according to thedepartmental dose optimization program which includes automated exposure control, adjustment of the mA and/or kV according to the patient size, and/or use of an iterative reconstruction technique. COMPARISON: None FINDINGS: Please note that there is transitional lumbosacral anatomy. When counting fromabove, there is a fully formed S1-S2 disc level with lumbarization of the S1 vertebral body. There is vacuum disc phenomenon in what is considered the L5-S1 disc level. There are rudimentary ribs on what is considered the L1 vertebral body. There is a transversely oriented fracture through the upper half of what is considered the L1 vertebral body based on this numbering scheme. This fracture extends transversely through the bilateral pedicles, lamina, and spinous process, compatible with a Chance fracture. There is no dislocation or significant loss of height. There is no evidence for a paraspinalhematoma. There is no gross evidence for epidural hematoma. However, please note that the central canal contents are not well evaluated due to the lack of intrathecal contrast. There is no other evidence of spinal fracture. There are bulky flowing bridging anterior osteophytes from T5 through T10. There is fusion of the spinous processes from T9-L2. A few small lateral syndesmophytes are seen in thelumbar spine. The visualized lungs are clear. The visualized soft tissues are grossly unremarkable. IMPRESSION: Please note transitional lumbosacral anatomy with lumbarization of the S1 vertebral body.Counting from above, the Chance fracture involves what is considered the L1 vertebral body. Clinicalnotes in EPIC state the patient's fracture as involving the T12 vertebral body. This is likely due to counting from below. Care should be noted this difference in level labeling during surgical localization. Signed: Deborah Triana MDReport Verified Date/Time: 05/17/2020 08:38:09 Reading Location: [facility] C013V Neuro Reading Room CT, SPINE, THORACIC, WO [id number] 08:38:00Unlisted Reason for Exam - Click Yes and Enter Reason Below->No [facility] : 1945 Sex: MFINAL REPORT CT Cervical, Thoracic, and Lumbar Spine CLINICAL HISTORY: Cervical disc disorder TECHNIQUE: Contiguous axial images of the cervical, thoracic, and lumbar spine with coronal and sagittal reformations to assess the alignment. This exam was performed according to thedepartmental dose optimization program which includes automated exposure control, adjustment of the mA and/or kV according to the patient size, and/or use of an iterative reconstruction technique. COMPARISON: None FINDINGS: Please note that there is transitional lumbosacral anatomy. When counting fromabove, there is a fully formed S1-S2 disc level with lumbarization of the S1 vertebral body. There is vacuum disc phenomenon in what is considered the L5-S1 disc level. There are rudimentary ribs on what is considered the L1 vertebral body. There is a transversely oriented fracture through the upper half of what is considered the L1 vertebral body based on this numbering scheme. This fracture extends transversely through the bilateral pedicles, lamina, and spinous process, compatible with a Chance fracture. There is no dislocation or significant loss of height. There is no evidence for a paraspinalhematoma. There is no gross evidence for epidural hematoma. However, please note that the central canal contents are not well evaluated due to the lack of intrathecal contrast. There is no other evidence of spinal fracture. There are bulky flowing bridging anterior osteophytes from T5 through T10. There is fusion of the spinous processes from T9-L2. A few small lateral syndesmophytes are seen in thelumbar spine. The visualized lungs are clear. The visualized soft tissues are grossly unremarkable. IMPRESSION: Please note transitional lumbosacral anatomy with lumbarization of the S1 vertebral body.Counting from above, the Chance fracture involves what is considered the L1 vertebral body. Clinicalnotes in EPIC state the patient's fracture as involving the T12 vertebral body. This is likely due to counting from below. Care should be noted this difference in level labeling during surgical localization. Signed: Deborah Triana MDReport Verified Date/Time: 05/17/2020 08:38:09 Reading Location: [address] Neuro Reading Room CT, SPINE, LUMBAR, WO [id number] 08:38:00Unlisted Reason for Exam - Click Yes and Enter Reason Below->No [facility] : 1945 Sex: MFINAL REPORT CT Cervical, Thoracic, and Lumbar Spine CLINICAL HISTORY: Cervical disc disorder TECHNIQUE: Contiguous axial images of the cervical, thoracic, and lumbar spine with coronal and sagittal reformations to assess the alignment. This exam was performed according to thedepartmental dose optimization program which includes automated exposure control, adjustment of the mA and/or kV according to the patient size, and/or use of an iterative reconstruction technique. COMPARISON: None FINDINGS: Please note that there is transitional lumbosacral anatomy. When counting fromabove, there is a fully formed S1-S2 disc level with lumbarization of the S1 vertebral body. There is vacuum disc phenomenon in what is considered the L5-S1 disc level. There are rudimentary ribs on what is considered the L1 vertebral body. There is a transversely oriented fracture through the upper half of what is considered the L1 vertebral body based on this numbering scheme. This fracture extends transversely through the bilateral pedicles, lamina, and spinous process, compatible with a Chance fracture. There is no dislocation or significant loss of height. There is no evidence for a paraspinalhematoma. There is no gross evidence for epidural hematoma. However, please note that the central canal contents are not well evaluated due to the lack of intrathecal contrast. There is no other evidence of spinal fracture. There are bulky flowing bridging anterior osteophytes from T5 through T10. There is fusion of the spinous processes from T9-L2. A few small lateral syndesmophytes are seen in thelumbar spine. The visualized lungs are clear. The visualized soft tissues are grossly unremarkable. IMPRESSION: Please note transitional lumbosacral anatomy with lumbarization of the S1 vertebral body.Counting from above, the Chance fracture involves what is considered the L1 vertebral body. Clinicalnotes in EPIC state the patient's fracture as involving the T12 vertebral body. This is likely due to counting from below. Care should be noted this difference in level labeling during surgical localization. Signed: Deborah Triana MDReport Verified Date/Time: 05/17/2020 08:38:09 Reading Location: [facility] C0[facility] Neuro Reading Room [facility] spine thoracic without IV [id number] 08:38:00Interface, External Ris In - 05/17/2020 8:[address] Cervical,Thoracic, and Lumbar Spine CLINICAL HISTORY: Cervical disc disorder TECHNIQUE: Contiguous axial images of the cervical, thoracic, and lumbar spine with coronal and sagittal reformations to assess the alignment. This exam was performed according to the departmental dose optimization program which includes automated exposure control, adjustment of the mA and/or kV according to the patient size, and/or u se of an iterative reconstruction technique. COMPARISON: None FINDINGS: Please note that there is transitional lumbosacral anatomy. When counting from above, there is a fully formed S1-S2 disc level with lumbarization of the S1 vertebral body. There is vacuum disc phenomenon in what is considered the L5-S1 disc level. There are rudimentary ribs on what is considered the L1 vertebral body. There is a transversely oriented fracture through the upper half of what is considered the L1 vertebral body based on this numbering scheme. This fracture extends transversely through the bilateral pedicles, lamina, and spinous process, compatible with a Chance fracture. There is no dislocation or significant loss of height. There is no evidence for a paraspinal hematoma. There is no gross evidence for epidural hematoma. However, please note that the central canal contents are not well evaluated due to the lackof intrathecal contrast. There is no other evidence of spinal fracture. There are bulky flowing bridging anterior osteophytes from T5 through T10. There is fusion of the spinous processes from T9-L2. A few small lateral syndesmophytes are seen in the lumbar spine. The visualized lungs are clear. The visualized soft tissues are grossly unremarkable. 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 Counting from above, the Chance fracture involves what is considered the L1 vertebral body. Clinical notes in EPIC state the patient's fracture as involving the T12 vertebral body. This is likely due to counting from below. Care should be noted this difference in level labeling during surgical localization. Signed: Deborah Triana MDReport Verified Date/Time: 05/17/2020 08:38:09 Reading Location: [facility] C013V Neuro [facility] 2020-05-17 08:38:00Interface, External Ris In - 05/17/2020 8:[address] Cervical,Thoracic, and Lumbar Spine CLINICAL HISTORY: Cervical disc disorder TECHNIQUE: Contiguous axial images of the cervical, thoracic, and lumbar spine with coronal and sagittal reformations to assess the alignment. This exam was performed according to the departmental dose optimization program which includes automated exposure control, adjustment of the mA and/or kV according to the patient size, and/or use of an iterative reconstruction technique. COMPARISON: None FINDINGS: Please note that there is transitional lumbosacral anatomy. When counting from above, there is a fully formed S1-S2 disc level with lumbarization of the S1 vertebral body. There is vacuum disc phenomenon in what is considered the L5-S1 disc level. There are rudimentary ribs on what is considered the L1 vertebral body. There is a t ransversely oriented fracture through the upper half of what is considered the L1 vertebral body based on this numbering scheme. This fracture extends transversely through the bilateral pedicles, lamina, and spinous process, compatible with a Chance fracture. There is no dislocation or significant loss of height. There is no evidence for a paraspinal hematoma. There is no gross evidence for epidural hematoma. However, please note that the central canal contents are not well evaluated due to the lackof intrathecal contrast. There is no other evidence of spinal fracture. There are bulky flowing bridging anterior osteophytes from T5 through T10. There is fusion of the spinous processes from T9-L2. A few small lateral syndesmophytes are seen in the lumbar spine. The visualized lungs are clear. The visualized soft tissues are grossly unremarkable. IMPRESSION: Please note transitional lumbosacral anatomy with lumbarization of the S1 vertebral body. Counting from above, the Chance fracture involves what is considered the L1 vertebral body. Clinical notes in EPIC state the patient's fracture as involving the T12 vertebral body. This is likely due to counting from below. Care should be noted this difference in level labeling during surgical localization. Signed: Deborah Triana MDReport Verified Date/Time: 05/17/2020 08:38:09 Reading Location: [facility] C013V Neuro Reading [facility] without IV [id number] 08:38:00 Interface, External Ris In - 05/17/2020 8:[address] Cervical,Thoracic, and Lumbar Spine CLINICAL HISTORY: Cervical disc disorder TECHNIQUE: Contiguous axial images of the cervical, thoracic, and lumbar spine with coronal and sagittal reformations to assess the alignment. This exam was performed according to the departmental dose optimization program which includes automated exposure control, adjustment of the mA and/or kV according to the patient size, and/or use of an iterative reconstruction technique. COMPARISON: None FINDINGS: Please note that there is transitional lumbosacral anatomy. When counting from above, there is a fully formed S1-S2 disc level with lumbarization of the S1 vertebral body. There is vacuum disc phenomenon in what is considered the L5-S1 disc level. There are rudimentary ribs on what is considered the L1 vertebral body. There is a transversely oriented fracture through the upper half of what is considered the L1 vertebral body based on this numbering scheme. This fracture extends transversely through the bilateral pedicles, lamina, and spinous process, compatible with a Chance fracture. There is no dislocation or significant loss of height. There is no evidence for a paraspinal hematoma. There is no gross evidence for epidural h ematoma. However, please note that the central canal contents are not well evaluated due to the lackof intrathecal contrast. There is no other evidence of spinal fracture. There are bulky flowing bridging anterior osteophytes from T5 through T10. There is fusion of the spinous processes from T9-L2. A few small lateral syndesmophytes are seen in the lumbar spine. The visualized lungs are clear. The visualized soft tissues are grossly unremarkable. IMPRESSION: Please note transitional lumbosacral anatomy with lumbarization of the S1 vertebral body. Counting from above, the Chance fracture involves what is considered the L1 vertebral body. Clinical notes in EPIC state the patient's fracture as invol ving the T12 vertebral body. This is likely due to counting from below. Care should be noted this difference in level labeling during surgical localization. Signed: Deborah Triana MDReport Verified Date/Time: 05/17/2020 08:38:09 Reading Location: [facility] B1 C013V Neuro Reading Room [facility]12 PLATELET [id number] 07:58:00 Test Item Value Reference Range Interpretation Comments POC-P2Y12 Plt Agg 207 PRU (test code = 2303) MICHELLE (test code = RANGE INFORMATION: PRU MICHELLE) reference range is 194-418. Post Drug Results: Lower PRU levels are associated with expected antiplatelet effect. Values may be below the stated reference range above. The post-drug PRU values reported in the [employer]Now P2Y12 package insert are [id number]. [facility] [id number] 07:58:00 Test Item Value Reference Range Interpretation Comments POC-P2Y12 PLATELET AGG (BEAKER) (test 207 PRU code = 2303) RANGE INFORMATION: PRU reference range is 194-418. Post Drug Results: Lower PRU levels are associated with expected antiplatelet effect. Values may be below the stated reference range above. The post-drug PRU values reported in the [employer] P2Y12 package insert are [id number].POCT-ASPIRIN PLATELET [id number] 07:57:00 Test Item Value Reference Range Interpretation Comments POC-Aspirin Plt Agg 592 ARU (test code = 2302) MICHELLE (test code = RANGE INFORMATION: 350-549 MICHELLE) ARU Therapeutic range for platelet function. 550-700 ARU Non-Therapeutic range for platelet function. [facility] [id number] 07:57:00 Test Item Value Reference Range Interpretation Comments POC-ASPIRIN PLATELET AGG (BEAKER) 592 ARU (test code = 2302) RANGE INFORMATION: 350-549 ARU Therapeutic range for platelet function. 550-700 ARU Non-Therapeutic range for platelet function.Type and screen, [id number] 07:26:00 Test Item Value Reference Range Interpretation Comments ABO/RH AUTOMATED (BEAKER) (test O NEGATIVE code = 2260) Ab Scrn (test code = 890-4) NEGATIVE [facility] CenterBASIC METABOLIC [id number] 07:13:00 Test Item Value Reference Range Interpretation Comments SODIUM (BEAKER) 132 meq/L 136-145 L (test code = 381) POTASSIUM (BEAKER) 3.6 meq/L 3.5-5.1 (test code = 379) CHLORIDE (BEAKER) 97 meq/L 98-107 L (test code = 382) CO2 (BEAKER) (test 25 meq/L 22-29 code = 355) BLOOD UREA NITROGEN 11 mg/dL 7-21 (BEAKER) (test code = 354) CREATININE (BEAKER) 0.82 mg/dL 0.57-1.25 (test code = 358) GLUCOSE RANDOM 217 mg/dL 70-105 H (BEAKER) (test code = 652) CALCIUM (BEAKER) 8.9 mg/dL 8.4-10.2 (test code = 697) EGFR (BEAKER) (test 91 mL/min/1.73 ESTIMA MELINDA GFR IS code = 1092) sq m NOT ACCURATE CREATININE CLEARANCE IN PREDICTING GLOMERULAR FILTRATION RATE . ESTIMATED GFR I S NOT APPLICABLE FOR DIALYSIS PATIEN TS. Dietician ID - MONUMENT FCBC W/PLT COUNT & AUTO [id number] 07:00:00 Test Item Value Reference Range Interpretation Comments WHITE BLOOD CELL COUNT (BEAKER) 14.9 K/ L 3.5-10.5 H (test code = 775) RED BLOOD CELL COUNT (BEAKER) 4.94 M/ L 4.63-6.08 (test code = 761) HEMOGLOBIN (BEAKER) (test code = 14.6 GM/DL 13.7-17.5 410) HEMATOCRIT (BEAKER) (test code = 44.1 % 40.1-51.0 411) MEAN CORPUSCULAR VOLUME (BEAKER) 89.3 fL 79.0-92.2 (test code = 753) MEAN CORPUSCULAR HEMOGLOBIN 29.6 pg 25.7-32.2 (BEAKER) (test code = 751) MEAN CORPUSCULAR HEMOGLOBIN CONC 33.1 GM/DL 32.3-36.5 (BEAKER) (test code = 752) RED CELL DISTRIBUTION WIDTH 13.0 % 11.6-14.4 (BEAKER) (test code = 412) PLATELET COUNT (BEAKER) (test 288 K/CU MM 150-450 code = 756) MEAN PLATELET VOLUME (BEAKER) 9.0 fL 9.4-12.4 L (test code = 754) NUCLEATED RED BLOOD CELLS 0 /100 WBC 0-0 (BEAKER) (test code = 413) NEUTROPHILS RELATIVE PERCENT 83 % (BEAKER) (test code = 429) LYMPHOCYTES RELATIVE PERCENT 7 % (BEAKER) (test code = 430) MONOCYTES RELATIVE PERCENT 7 % (BEAKER) (test code = 431) EOSINOPHILS RELATIVE PERCENT 0 % (BEAKER) (test code = 432) BASOPHILS RELATIVE PERCENT 1 % (BEAKER) (test code = 437) NEUTROPHILS ABSOLUTE COUNT 12.41 K/ L 1.78-5.38 H (BEAKER) (test code = 670) LYMPHOCYTES ABSOLUTE COUNT 1.04 K/ L 1.32-3.57 L (BEAKER) (test code = 414) MONOCYTES ABSOLUTE COUNT (BEAKER) 1.10 K/ L 0.30-0.82 H (test code = 415) EOSINOPHILS ABSOLUTE COUNT 0.04 K/ L 0.04-0.54 (BEAKER) (test code = 416) BASOPHILS ABSOLUTE COUNT (BEAKER) 0.09 K/ L 0.01-0.08 H (test code = 417) IMMATURE GRANULOCYTES-RELATIVE 2 % 0-1 H PERCENT (BEAKER) (test code = 2801) [id number] 06:50:00 Test Item Value Reference Range Interpretation Comments Fibrinogen (test code = 3255-7) 525 mg/dl 225-434 H Lab Interpretation (test code = Abnormal 05000-2) [facility] CenterProthrombin time/[id number] 06:50:00 Test Item Value Reference Range Interpretation Comments Protime (test code = 14.0 11.9- 14.2 5902-2) seconds INR (test code = 1.11 <=5.90 6301-6) MICHELLE (test code = MICHELLE) Effective 12/03/2018: PT Reference Range ChangeNew: 11.9-14.2 Previous: 11.7-14.7 RECOMMENDED COUMADIN/WARFARIN INR THERAPY RANGESSTANDARD DOSE: 2.0-3.0 Includes: PROPHYLAXIS for venous thrombosis, systemic embolization; TREATMENT for venous thrombosis and/or pulmonary embolus.HIGH RISK: Target INR is 2.5-3.5 for patients wiht mechanical heart valves. Lab Interpretation Normal (test code = 98420-7) [facility] CenterPT/[id number] 06:50:00 Test Item Value Reference Range Interpretation Comments Protime (test code = 14.0 11.9- 14.2 5902-2) seconds INR (test code = 1.11 <=5.90 6301-6) PTT (test code = 29.8 22.5- 36.0 77299-6) seconds MICHELLE (test code = MICHELLE) Effective 12/03/2018: PT Reference Range ChangeNew: 11.9-14.2 Previous: 11.7-14.7 RECOMMENDED COUMADIN/WARFARIN INR THERAPY RANGESSTANDARD DOSE: 2.0-3.0 Includes: PROPHYLAXIS for venous thrombosis, systemic embolization; TREATMENT for venous thrombosis and/or pulmonary embolus.HIGH RISK: Target INR is 2.5-3.5 for patients wiht mechanical heart valves. Lab Interpretation Normal (test code = 83100-6) [facility] CenterPROTHROMBIN TIME/[id number] 06:50:00 Test Item Value Reference Range Interpretation Comments PROTIME (BEAKER) (test code = 14.0 seconds 11.9-14.2 759) INR (BEAKER) (test code = 370) 1.11 <=5.90 Effective 12/03/2018: PT Reference Range ChangeNew: 11.9-14.2 Previous: 11.7- 14.7RECOMMENDED COUMADIN/WARFARIN INR THERAPY RANGESSTANDARD DOSE: 2.0-3.0 Includes: PROPHYLAXIS for venous thrombosis, systemic embolization; TREATMENT for venous thrombosis and/or pulmonary embolus.HIGH RISK: Target INR is2.5-3.5 for patients wiht mechanical heart valves.[id number] 06:50:00 Test Item Value Reference Range Interpretation Comments FIBRINOGEN LEVEL (BEAKER) (test 525 mg/dl 225-434 H code = 658) PT/[id number] 06:50:00 Test Item Value Reference Range Interpretation Comments PROTIME (BEAKER) (test code = 14.0 seconds 11.9-14.2 759) INR (BEAKER) (test code = 370) 1.11 <=5.90 PARTIAL THROMBOPLASTIN TIME 29.8 seconds 22.5-36.0 (BEAKER) (test code = 760) Effective 12/03/2018: PT Reference Range ChangeNew: 11.9-14.2 Previous: 11.7- 14.7RECOMMENDED COUMADIN/WARFARIN INR THERAPY RANGESSTANDARD DOSE: 2.0-3.0 Includes: PROPHYLAXIS for venous thrombosis, systemic embolization; TREATMENT for venous thrombosis and/or pulmonary embolus.HIGH RISK: Target INR is2.5-3.5 for patients wiht mechanical heart valves.RAD, CHEST, 1 VIEW, NON [id number] 03:28:00Reason for exam:->pre opShould this be performed at the bedside?->Yes[facility] : 1945 Sex: MFINAL REPORT INDICATION: pre op COMPARISON: None TECHNIQUE: Single frontal view of the chest. IMPRESSION: Lungs and pleura: Mild pulmonary venous congestion and bibasilar subsegmental atelectasis. No consolidation or effusion.Heart and mediastinum: Heart size is magnified by technique. Unremarkable mediastinal contours.Osseous structures: No acute abnormality.Other: None. Signed: Megan Ramires Verified Date/Time: 05/17/2020 03:28:49 XR chest 1 view portable / [id number] 03:28:00 Interface, External Ris In - 05/17/2020 3:30 AM CSTFINAL REPORT INDICATION: pre op COMPARISON: None TECHNIQUE: Single frontal view of the chest. IMPRESSION: Lungs and pleura: Mild pulmonary venous congestion and bibasilar subsegmental atelectasis. No consolidation or effusion.Heart and mediastinum: Heart size is magnified by technique. Unremarkable mediastinal contours.Osseousstructures: No acute abnormality.Other: None. Signed: Megan Ramires Verified Date/Time: 05/17/2020 03:28:49 [facility] POCT-GLUCOSE [id number] 21:48:00 Test Item Value Reference Range Interpretation Comments POC-GLUCOSE METER 215 mg/dL 70-110 H : TESTED A T [facility] 6720 (BEAKER) (test code = JINA Galdamez [facility], 1538) [address]: Dietician/Techni ezra ID = [id number] for MARIUSZ COLEMAN Corneal Topography, Galilei - [id number] 11:15:20 Test Item Value Reference Range Interpretation Comments zzAstigmatism (OD) +0.59 d (test code = 316) MICHELLE (test code = MICHELLE) Right EyeProgression has improved. Findings include normal observations. Astigmatism is +0.59 d. Earnest SainiistIOL Master - OU - Both [id number] 11:14:48 Test Item Value Reference Range Interpretation Comments Axial Length-OD (test 25.02 code = 4865) Axial Length-OS (test 24.55 code = 4866) Anterior Chamber 3.77 Depth-OD (test code = 4867) Anterior Chamber 5.02 Depth-OS (test code = 4868) White to White-OD 12.1 (test code = 4878) White to White-OS 11.9 (test code = 4879) MICHELLE (test code = MICHELLE) Right EyeLens style: pcboo. Lens power: +16.00d. Target refraction: -0.29 d. Axial length was 25.02. White to white was 12.1. AC Depth was 3.77. Left EyeAxial length was 24.55. White to white was 11.9. AC Depth was 5.02. NotesIOL CALCULATION ORDER SHEET +0.64 d x-62DATE OF TESTIN08/11/19 DATE OF SURGERY: OD OSRK PRK LASIK SILICONE OIL SCLERAL BUCKLE PKP [...] OD OS BACKUP LENS : OD OS Earnest Mcqueen
[2020-05-24] MEDS ORDERED: ACETAMINOPHEN 500 MG TAB PO PRN (15:51)
[2020-05-24] MEDS ORDERED: D50W 25 GM/50 ML SYRINGE IV PRN (16:21)
[2020-05-24] MEDS ORDERED: GLUCAGON 1 MG/VIAL IM PRN (16:21)
[2020-05-24 16:28] LABS: Urine Appearance CLEAR; Urine Bilirubin NEGATIVE (NEG); Urine Blood NEGATIVE (NEG); Urine Color YELLOW; Urine Glucose TRACE (NEG); Urine Protein NEGATIVE (NEG); Urine Urobilinogen 0.2 mg/dL (0.2-1.0)
[2020-05-24] MEDS: INSULIN -REGULAR HUMAN 50 UNIT/0.5 ML ML SQ SCH ×2 (16:30→20:49)
[2020-05-24 16:46] LABS: Urine Bacteria <20 /HPF (NONE SEEN); Urine RBC <5 /HPF (NONE SEEN)
[2020-05-24] MEDS: methocarbamoL 500 MG TAB PO SCH ×2 (16:46→20:46)
[2020-05-24] MEDS: SODIUM CHLORIDE 1 GM TAB PO SCH (17:49)
[2020-05-24] MEDS: AMLODIPINE 5 MG TAB PO SCH (17:49)
[2020-05-24] MEDS: HYDROCODONE/APAP 10/325 TAB PO PRN (18:44)
[2020-05-24 19:54] VITALS: BMI 34.7
[2020-05-24] MEDS: DOCUSATE NA/SENNA CONC 1 TAB PO SCH (20:47)
[2020-05-24] MEDS: EZETIMIBE 10 MG TAB PO SCH (20:47)
[2020-05-24] MEDS: METOPROLOL TAR 50 MG TAB PO SCH (20:47)
[2020-05-24] MEDS: POLYETHYL GLY 3350 17 GM/DOSE PO SCH (20:48)
[2020-05-24] MEDS ORDERED: SODIUM CHLORIDE 1 GM TAB PO SCH (21:00)
--- NOTE | 2020-05-25 02:58 | HP ---
ALVERTO/WILTON Voice ID: [id number] MTDD
[2020-05-25 05:52] LABS: Absolute Lymphocytes (CBC) 1.4 K/uL (0.7-4.9); Basophils % 0.7 % (0-1.3); Hematocrit 40.1 % (39.6-49.0); Lymphocytes % 10.4 % (15.3-44.8); MPV 7.3 fL (7.6-11.3); RBC Red Blood Cell Count 4.66 M/uL (4.33-5.43)
[2020-05-25 06:07] LABS: Albumin 2.7 g/dL (3.4-5.0); BUN Blood Urea Nitrogen 10 mg/dL (7-18); Bicarbonate 27 mmol/L (21-32); Glucose Level 163 mg/dL (74-106); Magnesium 2.2 mg/dL (1.8-2.4); Potassium 3.2 mmol/L (3.5-5.1); Prealbumin 17.9 mg/dL (20-40); Sodium Level 129 mmol/L (136-145)
[2020-05-25] MEDS: ENOXAPARIN 30 MG/0.3 ML SQ SCH (07:29)
[2020-05-25] MEDS: HYDROCODONE/APAP 10/325 TAB PO PRN ×2 (07:29→13:12)
[2020-05-25] MEDS: INSULIN -REGULAR HUMAN 50 UNIT/0.5 ML ML SQ SCH ×4 (07:30→20:06)
[2020-05-25] MEDS: LOSARTAN POTASSIUM 50 MG TABLET PO SCH (07:30)
[2020-05-25] MEDS: METOPROLOL TAR 50 MG TAB PO SCH ×2 (07:31→19:48)
[2020-05-25] MEDS: AMLODIPINE 5 MG TAB PO SCH ×2 (07:31→19:47)
[2020-05-25] MEDS ORDERED: POTASSIUM CL SA 10 MEQ TAB PO ONE (07:39)
[2020-05-25] MEDS ORDERED: AMLODIPINE 5 MG TAB PO SCH (08:00)
[2020-05-25] MEDS: POLYETHYL GLY 3350 17 GM/DOSE PO SCH ×3 (08:00→19:48)
[2020-05-25] MEDS: ASPIRIN EC 81 MG TAB PO SCH (08:41)
[2020-05-25] MEDS: TAMSULOSIN 0.4 MG SR CAP PO SCH (08:41)
[2020-05-25] MEDS: methocarbamoL 500 MG TAB PO SCH ×4 (08:41→19:46)
[2020-05-25] MEDS: CLOPIDOGREL 75 MG TABLET PO SCH (08:41)
[2020-05-25] MEDS: SODIUM BICARB 325 MG TAB PO SCH ×2 (08:41→20:07)
[2020-05-25] MEDS: FAMOTIDINE 20 MG TAB PO SCH (08:42)
[2020-05-25] MEDS: SODIUM CHLORIDE 1 GM TAB PO SCH ×3 (08:42→16:44)
[2020-05-25] MEDS: DOCUSATE NA/SENNA CONC 1 TAB PO SCH ×2 (08:42→19:49)
[2020-05-25 09:11] LABS: Blood Morphology Comment NOT SEEN (NOT SEEN); Platelet Estimate ADEQ
[2020-05-25] MEDS: LIDOCAINE 4% PATCH TOP SCH (10:33)
--- NOTE | 2020-05-25 17:45 | R.HP ---
HISTORY AND PHYSICAL FACILITY: 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 board/care, assisted living, usp, transitional living) PRE-HOSPITAL LIVING WITH Family/Relatives ENCOUNTER PHYSICIAN: Dr. Munir Martins M.D. 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 HISTORY OF PRESENT ILLNESS (HPI): Pt. is a 74 yo Right-handed male of unknown race. On 05/16/2020 he was admitted to [facility] with diagnosis T12 VERTEBRAL FRACTURE. His impairment category is Spinal Cord Dysfunction 04 - Other Traumatic Spinal Cord Dysfunction (04. 230). Pre-morbidly, Pt. was independent/mod-I in Safety Awareness, Transfers Control, Endurance, and Sphinc ter Control; and he had good Locomotion and Self-Care. Currently, he has deficits of Balance, Transfers Control, Sphincter Control, Endurance, and Locomotio n. Pt. is now referred to [facility] for acute in-patient rehabilitation in order to maximize patient's functional independence in activities of daily living, strength, ROM, and mobi lity. Patient has realistic goal of being discharged at assistance level 7-Ind to reside at Home with Fami ly/Relatives. MEDICATION ALLERGIES: No Known Drug Allergies (NKDA) ENVIRONMENTAL ALLERGIES: - Substance Allergies None Known - Other Allergies None Known PAST MEDICAL HISTORY: HYPERTENSION CAD S/P PCI ON DAPT DISPO VTE PROPHYLAXIS SOCIAL HISTORY: - Home Living Family/Relatives REVIEW OF SYSTEMS: - Gen No Chills Fatigue No Fever - Eyes No Double Vision No itchiness - ENMT No Difficulty Swallowing - CVS No Chest Discomfort No Chest Pain Fatigue No Weight Gain - Resp No Cough No Shortness of Breath - GI Continent No Abdominal Pain No Constipation No Diarrhea - Continent No Kidney Pain No Painful Urination No Urinary Urgency - MSK No Joint Pain Muscle Cramps Stiffness - Skin No Itching No Rash No Suspicious Lesions - Neuro Coordination Difficulty No Difficulty with Concentration No Memory Loss No Seizures No Weakness - Psych Anxiety No Depression No HIV Exposure No Persistent Infections No Seasonal Allergies - Endo No Cold/Heat Intolerance No Excessive Hunger No Excessive Thirst No Excessive Urination PHYSICAL EXAM - Gen Alert and awake Lying in bed No apparent distress Oriented to: person, time, and place - Skin No skin breakdown. Normacephalic - Eyes No abnormalities - ENMT No abnormalities - Neck No abnormalities - CVS RRR - Chest No abnormalities - Resp No wheezing - Abd + bowel sounds - GI Soft Deferred - No abnormalities - Ext No significant edema. - MSK 4/5 weakness in both lower extremities. - Neuro No focal deficits - Psych Mild anxiety. VITAL SIGNS Temperature: 97.3 F SBP/DBP: 156/74 Pulse: 97 Resp: 16 NURSING: - Shower allowing shower - Bladder care per protocol - Skin care per protocol ACTIVITIES OOB only with supervision QI SCORES: - Self-Care A. Eating 04-Supervision or touching assistance B. Oral hygiene 03-Partial/moderate assistance C. Toileting hygiene 88-Not attempted due to medical condition or safety concerns E. Shower/bathe self 02-Substantial/maximal assistance F. Upper body dressing 03-Partial/moderate assistance G. Lower body dressing 02-Substantial/maximal assistance H. Putting on/taking off footwear 88-Not attempted due to medical condition or safety concerns - Mobility A. Roll left and right 02-Substantial/maximal assistance B. Sit to lying 02-Substantial/maximal assistance C. Lying to sitting on side of bed 02-Substantial/maximal assistance D. Sit to stand 03-Partial/moderate assistance E. Chair/ozi-zg-wuxvw transfer 02-Substantial/maximal assistance F. Toilet transfer 88-Not attempted due to medical condition or safety concerns G. Car transfer 88-Not attempted due to medical condition or safety concerns I. Walk 10 feet 88-Not attempted due to medical condition or safety concerns J. Walk 50 feet with two turns 88-Not attempted due to medical condition or safety concerns K. Walk 150 feet 88-Not attempted due to medical condition or safety concerns L. Walking 10 feet on uneven surfaces 88-Not attempted due to medical condition or safety concerns M. 1 step (curb) 88-Not attempted due to medical condition or safety concerns N. 4 steps 88-Not attempted due to medical condition or safety concerns O. 12 steps 88-Not attempted due to medical condition or safety concerns P. Picking up object 88-Not attempted due to medical condition or safety concerns R. Wheel 50 feet with two turns 88-Not attempted due to medical condition or safety concerns S. Wheel 150 feet 88-Not attempted due to medical condition or safety concerns - Bladder and Bowel Bladder continence Bowel continence - Endurance Fair - Balance Fair - Safety Awareness Fair CURRENT FUNC. DEFICITS: Self-Care, Mobility, Endurance, Balance, and Safety Awareness MEDICATIONS: - Other See attached MAR (Medication Administration Record) ASSESSMENT: Pt. is a 74 yo Right-handed male of unknown race.On 05/16/2020 he was admitted to [facility] wi th diagnosis T12 VERTEBRAL FRACTURE.His impairment category is Spinal Cord Dysfunction 04 - Other Tr aumatic Spinal Cord Dysfunction (04.230).Pre-morbidly, Pt. was independent/mod-I in Safety Awareness, Transfers Control, Endurance, and Sphincter Control; and he had good Locomotion and Self-Care.Curren tly, he has deficits of Balance, Transfers Control, Sphincter Control, Endurance, and Locomotion.Pt. is now referred to [facility] for acute in-patient rehabilitation in order to maximize patient's functional independence in activities of daily living, strength, ROM, and mobility .- Rehab Goal Patient has realistic goal of being discharged at assistance level 7-Ind to reside at Home with Fami ly/Relatives. - Physical Therapy Gait dysfunction - to improve, our physical therapists will perform initial evaluation of pt's status upon admission and devise an individualized program for Gait Training, and Wheel Chair mobility Inability to transfer - to improve, our physical therapists will perform initial evaluation of pt's s tatus upon admission and devise an individualized program for Bed mobility Need for home safety evaluation - to improve, our physical therapists will perform initial evaluation of pt's status upon admission and devise an individualized program for Home Evaluation Need in caregiver upon discharge - to improve, our physical therapists will perform initial evaluatio n of pt's status upon admission and devise an individualized program for Caregiver Training New precaution - to improve, our physical therapists will perform initial evaluation of pt's status u [place] admission and devise an individualized program for Patient precaution education Edema - to improve, our physical therapists will perform initial evaluation of pt's status upon admi ssion and devise an individualized program for Elevation Training, and Lymphedema Therapy Poor balance - to improve, our physical therapists will perform initial evaluation of pt's status upo n admission and devise an individualized program for Balance Training Poor endurance - to improve, our physical therapists will perform initial evaluation of pt's status u [place] admission and devise an individualized program for Endurance Training Weakness - to improve, our physical therapists will perform initial evaluation of pt's status upon ad mission and devise an individualized program for Aquatic Therapy, Neuromuscular Reeducation, and Stre ngthening Achieving independence - to improve, our physical therapists will perform initial evaluation of pt's status upon admission and devise an individualized program for Community Reintegration Activities - Occupational Therapy Need for health care liaison - to improve, our occupation therapists will perform initial evaluation of pt's s tatus upon admission and devise an individualized program for Caregiver Training Weakness - to improve, our occupation therapists will perform initial evaluation of pt's status upon admission and devise an individualized program for Aquatic Therapy, Balance, Endurance, UE ROM, and U E strengthening MEDICAL PLAN: - Diet Type Start Regular - Diet - Liquid Texture Start Regular - Tube Feed Start N/A - Bladder care per protocol - Skin care per protocol - Other See attached MAR (Medication Administration Record) - Diet - Solid Texture Regular - Shower shower DISCHARGE PLAN: - Estimated Length of Stay (days) 27. - Consensus on plan Discharge plan has been discussed with primary caregiver. Patient/Family is in agreement with the sam n. Primary caregiver is in agreement with the plan. - Patient/Family Goals Return home independently. - Planned Living Setting Upon Discharge Home, to live with Family/Relatives. Transitional Living. 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
--- NOTE | 2020-05-25 17:47 | PAPE ---
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 Munir Martins M.D. ADMISSION DIAGNOSIS: T12 VERTEBRAL FRACTURE ONSET DATE 05/16/2020 POST-ADMISSION FUNCTIONAL/MEDICAL STATUS: - Bladder Same accident frequency: Ind - No accidents in the past 7 days - Bowel Same accident frequency: Ind - No accidents in the past 7 days - Walking Same score based on distance walked: 0(N/A) - Wheelchair Same score based on distance traveled: 0(N/A) STATUS CHANGE EVALUATION: No change in Functional or Medical Status is identified compared with Pre-Admission screening. PATIENT NEEDS CLOSE MEDICAL SUPERVISION BY A REHABILITATION PHYSICIAN FOR: Coordination of Treatment Team PATIENT REQUIRES 24X7 REHAB NURSING FOR MEDICAL AND FUNCTIONAL MGT. OF THE FOLLOWING DEFICITS: Disease Management Medication Management Patient/Family Education Providing Safe Environment PATIENT REQUIRES INTENSIVE, COORDINATED INTERDISCIPLINARY APPROACH TO REHAB: Arranging Home Equipment/Services Discharge Planning Family Intervention/Training Boiler Operators Supervisor/Case Management LIST OF IDENTIFIED AND POTENTIAL PROBLEMS: Alteration in leisure activities Bladder, Incontinence Bowel, Incontinence Infection, Actual or Potential Mobility Impaired Pain, Alteration in Comfort Self Care Deficit Skin Integrity, Actual or Potential Urinary Tract Infection (UTI), Actual or Potential PATIENT COULD BE AT RISK FOR COMPLICATIONS FROM ADVERSE MEDICAL CONDITIONS DUE TO HIS/HER COMORBIDITI ES AND THE RIGORS OF THE INTENSIVE REHABILLITATION PROGRAM. METHODS OR INTERVENTIONS TO AVOID COMPLIC ATIONS INCLUDE: - Infection Clinical staff to assess and manage the signs and symptoms of infection including fever, redness, war mth, etc. - Urinary Tract Infection - Falls Patient will be evaluated for Fall Precautions and will be placed on Fall Precautions as indicated pe r protocol. - Skin Breakdown Nursing will assess skin daily using assessment tool and will place on Skin Breakdown Precautions as indicated per protocol. - Pain Clinical staff may employ non-medication methods such as massage, distraction, decrease stimulus, etc . as needed. Clinical staff will assess patient's pain level every shift per protocol to assess and e nsure pain management effectiveness. Medications will be given and the pain level re-assessed. PRELIMINARY PLAN OF CARE: - Physical Therapy Patient needs Physical Therapy for a daily minimum of 1.5 hours at least 5 out of 7 days, to improve: Mobility, Strengthening, Transfers, Stretching, ROM, Endurance, Ability to manage stairs, Gait, and Balance. - Rehabilitation Nursing Patient requires 24x7 Rehabilitation Nursing for: Pain Issues, Identifying and preventing risk factor s, Monitoring and reporting current medical conditions, Assisting with ambulation and transfer, Gregor ting with all ADL-s, Teaching patients about disease process and medications, Family teaching, Provid ing safe environment, Bowel and Bladder Issues, Skin Integrity, and Medication Management. Patient needs Boiler Operators Supervisor and/or Case Management for: Discharge Planning, Arranging Home Equipmen t or Services, and Family Interventions. - Dietary and Nutrition Services Patient needs Dietary and Nutrition Services for: Adequate Nutrition, Nutritional Supplements, and Nu tritional Education. - Occupational Therapy Patient needs Occupational Therapy for a daily minimum of 1.5 hours at least 5 out of 7 days, to impr ove Activities of Daily Living, including: Eating, Grooming, Bathing, Dressing, Toileting, Toilet Tra nsfers, Community Reintegration, Higher functional activities, Adaptive Equipment, Splinting, Househo ld Tasks, and Other activities as determined. QI SCORES: - Self-Care A. Eating 04-Supervision or touching assistance B. Oral hygiene 03-Partial/moderate assistance C. Toileting hygiene 88-Not attempted due to medical condition or safety concerns E. Shower/bathe self 02-Substantial/maximal assistance F. Upper body dressing 03-Partial/moderate assistance G. Lower body dressing 02-Substantial/maximal assistance H. Putting on/taking off footwear 88-Not attempted due to medical condition or safety concerns - Mobility A. Roll left and right 02-Substantial/maximal assistance B. Sit to lying 02-Substantial/maximal assistance C. Lying to sitting on side of bed 02-Substantial/maximal assistance D. Sit to stand 03-Partial/moderate assistance E. Chair/whn-ly-cisup transfer 02-Substantial/maximal assistance F. Toilet transfer 88-Not attempted due to medical condition or safety concerns G. Car transfer 88-Not attempted due to medical condition or safety concerns I. Walk 10 feet 88-Not attempted due to medical condition or safety concerns J. Walk 50 feet with two turns 88-Not attempted due to medical condition or safety concerns K. Walk 150 feet 88-Not attempted due to medical condition or safety concerns L. Walking 10 feet on uneven surfaces 88-Not attempted due to medical condition or safety concerns M. 1 step (curb) 88-Not attempted due to medical condition or safety concerns N. 4 steps 88-Not attempted due to medical condition or safety concerns O. 12 steps 88-Not attempted due to medical condition or safety concerns P. Picking up object 88-Not attempted due to medical condition or safety concerns R. Wheel 50 feet with two turns 88-Not attempted due to medical condition or safety concerns S. Wheel 150 feet 88-Not attempted due to medical condition or safety concerns - Bladder and Bowel Bladder continence Bowel continence - Endurance Fair - Balance Fair - Safety Awareness Fair POTENTIAL FUNCTIONAL GOALS FOR PATIENT TO ACHIEVE BY DISCHARGE: - Safety Precaution Patient will remain free from falls or injury at time of discharge. - Bed Mobility Patient will perform bed mobility at 4-Td level of assistance. - Transfers Patient will complete transfers from bed to chair at 4-Td level of assistance. - Mobility Patient will ambulate 150 ft with 4-Td level of assistance with RW. PATIENT REHAB POTENTIAL Nito KENDALL is able and expected to receive 3 hours of individualized therapy daily on at least 5 of juan pablo ry 7 days Nito KENDALL's prognosis for significant practical improvement within a reasonable period of time appears Good Expected level of measurable improvement will be of a practical value to Nito KENDALL's functional capaci ty or adaptations to impairments Has a viable Discharge Plan Medically appropriate; condition is sufficiently stable to participate in intensive rehab program DISCHARGE PLAN: - Estimated Length of Stay (days) 27. - Consensus on plan Discharge plan has been discussed with primary caregiver. Patient/Family is in agreement with the sam n. Primary caregiver is in agreement with the plan. - Patient/Family Goals Return home independently. - Planned Living Setting Upon Discharge Home, to live with Family/Relatives. Transitional Living. CONCLUSION ON REHABILITATION NECESSITY: I have evaluated patient's pre-admission functional status and, comparing it to the patient's post-ad mission functional status now, I conclude that the pre-admission assessment was accurate. Patient's c ondition on admission supports the medical necessity of admission to IR[facility]. It is safe to proceed with patient's therapy program. 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
[2020-05-25] MEDS: EZETIMIBE 10 MG TAB PO SCH (19:47)
[2020-05-25] MEDS: MELATONIN 3 MG TABLET PO PRN (19:47)
[2020-05-25] MEDS: GABAPENTIN 300 MG CAP PO SCH (19:47)
--- NOTE | 2020-05-26 06:59 | HP ---
Date of Admission: 05/25/2020 Chief Complaint: Back pain. History Of Present Illness: This is a 74-year-old male patient who fell down at home on 05/16/2020 and immediately started complaining of back pain, who was brought into our emergency room and further evaluation in the emergency room included CAT scan of the thoracic and lumbar spine and it showed a known displaced fracture involving the right and left pedicles and the right and left lamina of T12 extending into vertebral body. Right and left facets are also involved. There is minimal compression fracture of the body. CAT scan of the lumbar spine showed no fracture, evidence of spondylosis of L4-5 with marked central spinal stenosis. After this, the patient was transferred to [facility] for higher level of care where he actually had surgery done and today he was brought in to our rehab floor for rehab therapy. Allergies: LISTED HAVING SIDE EFFECT TO HYDROCHLOROTHIAZIDE IN TERMS OF PHOTOSENSITIVITY. Medications: At home prior to this hospital admission; he was taking amlodipine 5 mg daily, aspirin 81 mg daily, clopidogrel 75 mg daily, losartan 25 mg daily, and metoprolol tartrate 50 mg p.o. 2 times a day. Current medication list reviewed. Review of Systems: Musculoskeletal: Back pain. Genitourinary: Patient has some trouble voiding. Urinary flow is weaker than normal and it takes longer time for him to empty his bladder. All other systems reviewed and negative. Past Medical History: Significant for type 2 diabetes mellitus, hypertension, mixed hyperlipidemia, coronary artery disease, gastroesophageal reflux disease, benign prostatic hypertrophy, gout. Past Surgical History: Cataract surgery, coronary artery stent placement in June 11, 2006, and recent back surgery for fracture. Family History: Father had NE. Mother had tuberculosis. Social History: Prior history of smoking, but quit long time ago. Use of alcohol negative. Physical Examination: Vital Signs: Height 6 feet 2 inches, weight 270 pounds, pulse 97, blood pressure 176/100, oxygen saturation 95%, temperature 97.5, respiratory rate 16. General: Awake, alert, oriented, not in distress. HEENT: Head atraumatic, normocephalic. Conjunctivae nonerythematous. Sclerae white. Mouth, no thrush or edema noted. Ears/Nose, no mass, lesion, discharge noted. Neck: Supple. No JVD, lymph nodes, bruit, thyromegaly noted. Lungs: Bilateral good equal air entry. Clear to auscultation. No rhonchi. No rales. Heart: Normal heart sounds, no murmur or gallop. Abdomen: Soft, bowel sounds normal. No guarding, rigidity, tenderness, mass, hepatosplenomegaly, distention, or bruit noted. Extremities: No leg edema. No calf tenderness. Skin: No rash, ulcer, cellulitis. Lymphatics: No lymph node enlargement in neck, supraclavicular, infraclavicular region. Neuro: No focal neurological deficit. Chest: Unremarkable. External Genitalia: Deferred. Rectal: Deferred. Back: Shows evidence of full small linear midline surgical scar, well-healed. No evidence of any redness, gapping, discharge, bleeding, etc. No evidence of any soft tissue swelling. Laboratory Data: White count 13.9, hemoglobin 13.4, platelets 313. Sodium 129, potassium 3.2, chloride 93, bicarb 27, BUN 10, creatinine 0.73, glucose 163, albumin 2.7, magnesium 2.2. Urinalysis negative. COVID-19 test negative. Impression: 1. Fracture, T10 spine, status post surgery. 2. Hyponatremia. 3. Hypokalemia. 4. Coronary artery disease. 5. Hyperlipidemia. 6. Benign prostatic hypertrophy with lower urinary tract symptoms. Plan: We will admit the patient to rehab floor for further evaluation and management of this problem. Consult Dr. Martins for rehab therapy. We will continue his current medications including his antihypertensive medication. Monitor blood pressure and weakness. Readjust antihypertensive medication. The patient was noted to have hyponatremia while he was at outside hospital. We will continue to monitor his sodium level as it becomes necessary to put him on 1500 cc per day fluid restriction and replace potassium per order. We will start him on a sodium bicarbonate tablets per order. For lower urinary tract symptoms. We will go ahead and start him on tamsulosin. DVT prophylaxis will be given per order. Details and plan of treatment discussed with the patient. ALVERTO/MODL Voice ID: [id number] MTDD
[2020-05-26 07:06] LABS: Absolute Lymphocytes (CBC) 1.2 K/uL (0.7-4.9); Basophils % 0.2 % (0-1.3); Hematocrit 38.6 % (39.6-49.0); Lymphocytes % 8.2 % (15.3-44.8); MPV 7.5 fL (7.6-11.3); RBC Red Blood Cell Count 4.49 M/uL (4.33-5.43)
[2020-05-26 07:13] LABS: Albumin 2.5 g/dL (3.4-5.0); BUN Blood Urea Nitrogen 14 mg/dL (7-18); Bicarbonate 26 mmol/L (21-32); Glucose Level 158 mg/dL (74-106); Magnesium 2.2 mg/dL (1.8-2.4); Potassium 3.3 mmol/L (3.5-5.1); Prealbumin 17.5 mg/dL (20-40); Sodium Level 132 mmol/L (136-145)
[2020-05-26] MEDS: INSULIN -REGULAR HUMAN 50 UNIT/0.5 ML ML SQ SCH ×4 (07:30→20:26)
[2020-05-26] MEDS: POLYETHYL GLY 3350 17 GM/DOSE PO SCH ×2 (08:00→19:39)
[2020-05-26] MEDS: DOCUSATE NA/SENNA CONC 1 TAB PO SCH ×3 (08:00→19:40)
[2020-05-26] MEDS: LIDOCAINE 4% PATCH TOP SCH (08:39)
[2020-05-26] MEDS: HYDROCODONE/APAP 10/325 TAB PO PRN ×3 (08:39→21:32)
[2020-05-26] MEDS: SODIUM BICARB 325 MG TAB PO SCH ×2 (08:40→20:25)
[2020-05-26] MEDS: FAMOTIDINE 20 MG TAB PO SCH (08:41)
[2020-05-26] MEDS: ASPIRIN EC 81 MG TAB PO SCH (08:41)
[2020-05-26] MEDS: CLOPIDOGREL 75 MG TABLET PO SCH (08:41)
[2020-05-26] MEDS: AMLODIPINE 5 MG TAB PO SCH ×2 (08:41→20:00)
[2020-05-26] MEDS: LOSARTAN POTASSIUM 50 MG TABLET PO SCH (08:41)
[2020-05-26] MEDS: GABAPENTIN 300 MG CAP PO SCH ×2 (08:42→20:26)
[2020-05-26] MEDS: METOPROLOL TAR 50 MG TAB PO SCH ×2 (08:42→20:00)
[2020-05-26] MEDS: ENOXAPARIN 30 MG/0.3 ML SQ SCH (08:42)
[2020-05-26] MEDS: TAMSULOSIN 0.4 MG SR CAP PO SCH (08:42)
[2020-05-26] MEDS: SODIUM CHLORIDE 1 GM TAB PO SCH ×3 (08:42→16:49)
[2020-05-26] MEDS: methocarbamoL 500 MG TAB PO SCH ×4 (08:44→20:25)
[2020-05-26] MEDS ORDERED: POTASSIUM CL SA 10 MEQ TAB PO ONE (09:50)
[2020-05-26 10:41] LABS: White Blood Cell Scan OK (OK)
[2020-05-26 10:42] LABS: Platelet Estimate ADEQ
[2020-05-26 10:43] LABS: Blood Morphology Comment NOT SEEN (NOT SEEN)
--- NOTE | 2020-05-26 11:53 | RAD REPORT ---
EXAM DESCRIPTION: RAD - Chest Single View - 05/26/2020 11:32 am CLINICAL HISTORY: leukocytosis COMPARISON: None TECHNIQUE: AP portable chest image was obtained 05/26/2020 11:32 am . FINDINGS: Lungs are clear. No mediastinal or hilar mass or lymphadenopathy seen. Heart and vasculatu re are normal. No measurable pleural effusion and no pneumothorax. No acute bony abnormality seen. No acute aortic findings suspected. IMPRESSION: No acute cardiopulmonary process.
[2020-05-26] MEDS: MELATONIN 3 MG TABLET PO PRN (20:25)
[2020-05-26] MEDS: EZETIMIBE 10 MG TAB PO SCH (20:25)
[2020-05-27 06:59] LABS: Absolute Lymphocytes (CBC) 1.2 K/uL (0.7-4.9); Basophils % 0.7 % (0-1.3); Hematocrit 37.4 % (39.6-49.0); Lymphocytes % 11.2 % (15.3-44.8); MPV 7.5 fL (7.6-11.3); RBC Red Blood Cell Count 4.31 M/uL (4.33-5.43)
--- NOTE | 2020-05-27 07:12 | PN ---
Date of Progress Note: 05/26/2020 Subjective: Patient was seen for followup. Denies any new complaints or problems. No abdominal aaron n, nausea, vomiting. No cough, congestion, expectoration. No dysuria. Objective: Vital Signs: Reviewed. HEENT: Unremarkable. Lungs: Clear to auscultation. Heart: Sounds normal. Abdomen: Soft. Bowel sounds normal. No guarding, rigidity, tenderness, distention. Extremities: No leg edema. Laboratory Data: CBC and chemistry reviewed. White count is 15,000. Sodium is 132, potassium 3.1. Chest x-ray done today shows no acute cardiopulmonary changes. Impression: 1.Leukocytosis. 2.Hypertension. 3.Hyponatremia. 4.Hypokalemia. Plan: We will go ahead and replace potassium per order. Continue sodium bicarbonate tablets per ord er. Sodium level is better today compared to yesterday. We will continue fluid restriction as well. The patient has elevated WBC count, but clinically, there is no sign or symptom of any infection. We will repeat another blood work tomorrow. His urinalysis, which was done upon admission was normal as well. ALVERTO/MODL Voice ID: [id number] Report ID: [id number]
[2020-05-27 07:27] LABS: Albumin 2.5 g/dL (3.4-5.0); Bilirubin Total 0.5 mg/dL (0.2-1.0); Magnesium 2.4 mg/dL (1.8-2.4); Potassium 3.3 mmol/L (3.5-5.1); Protein, Total 6.7 g/dL (6.4-8.2)
[2020-05-27] MEDS: INSULIN -REGULAR HUMAN 50 UNIT/0.5 ML ML SQ SCH ×4 (07:30→20:30)
[2020-05-27] MEDS: HYDROCODONE/APAP 10/325 TAB PO PRN ×2 (07:36→13:55)
[2020-05-27] MEDS: ENOXAPARIN 30 MG/0.3 ML SQ SCH (07:38)
[2020-05-27] MEDS ORDERED: POTASSIUM CL SA 10 MEQ TAB PO ONE (07:40)
[2020-05-27] MEDS: LIDOCAINE 4% PATCH TOP SCH ×2 (08:00→10:53)
[2020-05-27] MEDS: DOCUSATE NA/SENNA CONC 1 TAB PO SCH (08:00)
[2020-05-27] MEDS: POLYETHYL GLY 3350 17 GM/DOSE PO SCH ×3 (08:00→20:29)
[2020-05-27] MEDS: LOSARTAN POTASSIUM 50 MG TABLET PO SCH (08:27)
[2020-05-27] MEDS: SODIUM BICARB 325 MG TAB PO SCH ×2 (08:28→20:29)
[2020-05-27] MEDS: GABAPENTIN 300 MG CAP PO SCH ×2 (08:28→20:29)
[2020-05-27] MEDS: methocarbamoL 500 MG TAB PO SCH ×4 (08:28→20:28)
[2020-05-27] MEDS: ASPIRIN EC 81 MG TAB PO SCH (08:28)
[2020-05-27] MEDS: FAMOTIDINE 20 MG TAB PO SCH (08:29)
[2020-05-27] MEDS: METOPROLOL TAR 50 MG TAB PO SCH ×2 (08:29→20:29)
[2020-05-27] MEDS: AMLODIPINE 5 MG TAB PO SCH ×2 (08:30→20:00)
[2020-05-27] MEDS: CLOPIDOGREL 75 MG TABLET PO SCH (08:30)
[2020-05-27] MEDS: TAMSULOSIN 0.4 MG SR CAP PO SCH (08:30)
[2020-05-27] MEDS: SODIUM CHLORIDE 1 GM TAB PO SCH ×3 (08:30→16:34)
[2020-05-27] MEDS: METFORMIN ER 500 MG TAB PO SCH (08:32)
[2020-05-27] MEDS: DRISDOL (VITAMIN D=ERGOCALCIFEROL) 50000 UNIT CAP PO SCH (08:32)
--- NOTE | 2020-05-27 10:00 | P.RH.PN ---
Estimated Length of Stay: 17 Expected Discharge Date: 06/09/20 Discharge Disposition Plan: Home Family Support: Yes [facility] Goal: Mobility, Transfers, Self Care Vital Signs: Last Vital Signs Temp 97.2 F 05/27/20 07:53 Pulse 90 05/27/20 08:30 Resp 16 05/27/20 08:28 BP 136/65 05/27/20 08:30 Pulse Ox 99 05/27/20 08:28 Laboratory: Laboratory Last Values WBC 11.2 K/uL (4.3-10.9) H D 05/27/20 06:39 RBC 4.31 M/uL (4.33-5.43) L 05/27/20 06:39 Hgb 12.7 g/dL (13.6-17.9) L 05/27/20 06:39 Hct 37.4 % (39.6-49.0) L 05/27/20 06:39 MCV 86.7 fL (80-100) 05/27/20 06:39 MCH 29.4 pg (27.0-35.0) 05/27/20 06:39 MCHC 33.9 g/dL (32.0-36.0) 05/27/20 06:39 RDW 13.9 % (12.1-15.2) 05/27/20 06:39 Plt Count 316 K/uL (152-406) 05/27/20 06:39 MPV 7.5 fL (7.6-11.3) L 05/27/20 06:39 Neutrophils % 76.6 % (41.7-73.7) H 05/27/20 06:39 Lymphocytes % 11.2 % (15.3-44.8) L 05/27/20 06:39 Monocytes % 10.1 % (3.3-12.3) 05/27/20 06:39 Eosinophils % 1.4 % (0-4.4) 05/27/20 06:39 Basophils % 0.7 % (0-1.3) 05/27/20 06:39 Absolute Neutrophils 8.6 K/uL (1.8-8.0) H 05/27/20 06:39 Segmented Neutrophils 77 % (40-80) 05/25/20 05:33 Absolute Lymphocytes 1.2 K/uL (0.7-4.9) 05/27/20 06:39 Lymphocytes 9 % (15-42) L 05/25/20 05:33 Monocytes 11 % (0-10) H 05/25/20 05:33 Absolute Monocytes 1.1 K/uL (0.1-1.3) 05/27/20 06:39 Eosinophils 2 % (0-3) 05/25/20 05:33 Absolute Eosinophils 0.2 K/uL (0-0.5) 05/27/20 06:39 Absolute Basophils 0.1 K/uL (0-0.5) 05/27/20 06:39 Atypical Lymphocytes 1 % 05/25/20 05:33 Platelet Estimate Adeq 05/26/20 06:16 Morphology Comment Not seen (NOT SEEN) 05/26/20 06:16 Sodium 134 mmol/L (136-145) L 05/27/20 06:39 Potassium 3.3 mmol/L (3.5-5.1) L 05/27/20 06:39 Chloride 99 mmol/L (98-107) 05/27/20 06:39 Carbon Dioxide 29 mmol/L (21-32) 05/27/20 06:39 BUN 16 mg/dL (7-18) 05/27/20 06:39 Creatinine 0.86 mg/dL (0.55-1.3) 05/27/20 06:39 Estimated GFR 86 mL/min (=/>90) L 05/27/20 06:39 Glucose 143 mg/dL (74-106) H 05/27/20 06:39 POC Glucose 124 mg/dL (65-120) H 05/27/20 07:34 Hemoglobin A1c 7.6 % (4.2-6.3) H 05/27/20 06:39 Calcium 8.2 mg/dL (8.5-10.1) L 05/27/20 06:39 Magnesium 2.4 mg/dL (1.8-2.4) 05/27/20 06:39 Total Bilirubin 0.5 mg/dL (0.2-1.0) 05/27/20 06:39 AST 58 U/L (15-37) H 05/27/20 06:39 ALT 51 U/L (12-78) 05/27/20 06:39 Alkaline Phosphatase 95 U/L (45-117) 05/27/20 06:39 Serum Total Protein 6.7 g/dL (6.4-8.2) 05/27/20 06:39 Albumin 2.5 g/dL (3.4-5.0) L 05/27/20 06:39 Globulin 4.2 g/dL (2.3-3.5) H 05/27/20 06:39 Albumin/Globulin Ratio 0.6 (1.1-1.8) L 05/27/20 06:39 Prealbumin 17.5 mg/dL (20-40) L 05/26/20 06:16 Urine Color Yellow 05/24/20 15:35 Urine Appearance Clear 05/24/20 15:35 Urine pH 7.0 (5.0-7.0) 05/24/20 15:35 Ur Specific [place] 1.020 (1.005-1.030) 05/24/20 15:35 Glucose (UA)(Auto) Trace (NEG) 05/24/20 15:35 Urine Ketones Negative (NEG) 05/24/20 15:35 Urine Blood Negative (NEG) 05/24/20 15:35 Urine Nitrite Negative (NEG) 05/24/20 15:35 Urine Bilirubin Negative (NEG) 05/24/20 15:35 Urine Urobilinogen 0.2 mg/dL (0.2-1.0) 05/24/20 15:35 Ur Leukocyte Esterase Negative (NEG) 05/24/20 15:35 Urine RBC <5 /HPF (NONE SEEN) 05/24/20 15:35 Urine WBC <5 /HPF (<5) 05/24/20 15:35 Ur Squamous Epith Cells <5 /HPF (NONE SEEN) 05/24/20 15:35 Urine Bacteria <20 /HPF (NONE SEEN) 05/24/20 15:35 Urine Culture Reflexed Not needed 05/24/20 15:35 Urine Total Protein Negative (NEG) 05/24/20 15:35 SARS-CoV-2 RNA (RT-PCR) Negative (NEGATIVE) 05/24/20 15:20 Smear Scan Ok (OK) 05/26/20 06:16 Weight: 270 lb 6.4 oz Wound Present: Yes Closed Surgical Incision Present: Yes Negative Pressure Wound Therapy Present: No Physician Update: Labs are stable. He walks 150' with contact guard, min assistance for bed mobilility. He does not want to get out of bed to use the rest room. Functional Improvement: pt is limited at this point by pain. pt refuses to remain out of bed for extended periods of time and at times has refused to particiapte in therapy services that are not performed in bed. Will continue to encourage pt to participate in functional activity out of bed and look to enhance pain management. Skilled PT services continue to be necessary to enhance overall safety and functional performance prior to discharge home. 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 Please see the Rehabilitation Signature page for all necessary signatures.
--- NOTE | 2020-05-27 12:15 | R.PN ---
PROGRESS NOTES ENCOUNTER DATE AND TIME: 05/26/2020 19:38 (NARCOTICS AND/OR VICE DETECTIVE) NAME CHARLIE KENDALL DATE OF : 1945 DATE OF ADMISSION: 05/25/2020 15:42 (NARCOTICS AND/OR VICE DETECTIVE) T12 VERTEBRAL FRACTURECHIEF COMPLAINT: Vertebral fracture SUBJECTIVE: Pt denied any Shortness of Breath. Pt denied any depression. WBC 15, neutrophils 80.1, glucose 130 to 168, prealbumin 17.5. Ambulated 285' with contact guard assistance using a rolling walker. VITAL SIGNS Temperature: 97.4 F SBP/DBP: 151/73 Pulse: 102 Resp: 16 MEDICATION ALLERGIES: No Known Drug Allergies (NKDA) ENVIRONMENTAL ALLERGIES: - Substance Allergies None Known - Other Allergies None Known NURSING: - Shower allowing shower - Bladder care per protocol - Skin care per protocol ACTIVITIES OOB only with supervision THERAPIES: - Orthotics/Prosthetics Orthotic Evaluation. Splinting/Casting. - Dietary and Nutrition Adequate Nutrition. Nutritional Education. Nutritional Supplements. PHYSICAL EXAM - Gen Alert and awake Lying in bed No apparent distress Oriented to: person, time, and place - Skin No skin breakdown. Normacephalic - Eyes No abnormalities - ENMT No abnormalities - Neck No abnormalities - CVS RRR - Chest No abnormalities - Resp No wheezing - Abd + bowel sounds - GI Soft Deferred - No abnormalities - Ext No significant edema. - MSK 4/5 weakness in both lower extremities. - Neuro No focal deficits - Psych Mild anxiety. ASSESSMENT: Pt. 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 was independent/mod-I in Safety Awareness, Transfers Control, Endurance, and Sphincter Control; and he had good Locomotion and Self-Care.Curren tly, he has deficits of Balance, Transfers Control, Sphincter Control, Endurance, and Locomotion.Pt. is now referred to [facility] for acute in-patient rehabilitation in order to maximize patient's functional independence in activities of daily living, strength, ROM, and mobility .- Rehab Goal Patient has realistic goal of being discharged at assistance level 7-Ind to reside at Home with Fami ly/Relatives. MDM/PLAN: - Physical Therapy Gait dysfunction - to improve, our physical therapists will perform initial evaluation of pt's statu s upon admission and devise an individualized program for Gait Training, and Wheel Chair mobility Inability to transfer - to improve, our physical therapists will perform initial evaluation of pt's status upon admission and devise an individualized program for Bed mobility Need for home safety evaluation - to improve, our physical therapists will perform initial evaluatio n of pt's status upon admission and devise an individualized program for Home Evaluation Need in caregiver upon discharge - to improve, our physical therapists will perform initial evaluati on of pt's status upon admission and devise an individualized program for Caregiver Training New precaution - to improve, our physical therapists will perform initial evaluation of pt's status upon admission and devise an individualized program for Patient precaution education Edema - to improve, our physical therapists will perform initial evaluation of pt's status upon admis frederic and devise an individualized program for Elevation Training, and Lymphedema Therapy Poor balance - to improve, our physical therapists will perform initial evaluation of pt's status up on admission and devise an individualized program for Balance Training Poor endurance - to improve, our physical therapists will perform initial evaluation of pt's status upon admission and devise an individualized program for Endurance Training Weakness - to improve, our physical therapists will perform initial evaluation of pt's status upon a dmission and devise an individualized program for Aquatic Therapy, Neuromuscular Reeducation, and Str engthening Achieving independence - to improve, our physical therapists will perform initial evaluation of pt's status upon admission and devise an individualized program for Community Reintegration Activities - Occupational Therapy Need for eye care professional - to improve, our occupation therapists will perform initial evaluation of pt's status upon admission and devise an individualized program for Caregiver Training Weakness - to improve, our occupation therapists will perform initial evaluation of pt's status upon admission and devise an individualized program for Aquatic Therapy, Balance, Endurance, UE ROM, and UE strengthening - Other See attached MAR (Medication Administration Record) - Diet Type Continue Regular - Diet - Liquid Texture Continue Regular - Tube Feed Continue N/A - Bladder care per protocol - Skin care per protocol - Diet - Solid Texture Continue Regular - Shower allowing shower FUNCTIONAL STATUS: UPDATED AT WEEKLY TEAM CONFERENCE - Bladder Same accident frequency: 7-Ind - No accidents in the past 7 days - Bowel Same accident frequency: 7-Ind - No accidents in the past 7 days - Walking Same score based on distance walked: 0(N/A) - Wheelchair Same score based on distance traveled: 0(N/A) FUNCTIONAL STATUS: - Self-Care A. Eating Tamara B. Grooming Tamara C. Bathing sup D. Dressing - Upper sup E. Dressing - Lower dT F. Toileting sup - Sphincter Control G. Bladder control sup H. Bowel control sup - Transfers Control I. Bed/Chair/Wheelchair sup J. Toilet sup K. Tub/Shower Td - Locomotion L. Walk/Wheelchair (B) Td M. Stairs ADNO - Communication N. Comprehension (B) Tamara O. Expression (B) Tamara - Social Cognition P. Social Interaction Tamara Q. Problem Solving Tamara R. Memory Tamara - Endurance Good - Balance Good - Safety Awareness Good QI SCORES: - Self-Care A. Eating 04-Supervision or touching assistance B. Oral hygiene 03-Partial/moderate assistance C. Toileting hygiene 88-Not attempted due to medical condition or safety concerns E. Shower/bathe self 02-Substantial/maximal assistance F. Upper body dressing 03-Partial/moderate assistance G. Lower body dressing 02-Substantial/maximal assistance H. Putting on/taking off footwear 88-Not attempted due to medical condition or safety concerns - Mobility A. Roll left and right 02-Substantial/maximal assistance B. Sit to lying 02-Substantial/maximal assistance C. Lying to sitting on side of bed 02-Substantial/maximal assistance D. Sit to stand 03-Partial/moderate assistance E. Chair/jsk-bd-emhtu transfer 02-Substantial/maximal assistance F. Toilet transfer 88-Not attempted due to medical condition or safety concerns G. Car transfer 88-Not attempted due to medical condition or safety concerns I. Walk 10 feet 88-Not attempted due to medical condition or safety concerns J. Walk 50 feet with two turns 88-Not attempted due to medical condition or safety concerns K. Walk 150 feet 88-Not attempted due to medical condition or safety concerns L. Walking 10 feet on uneven surfaces 88-Not attempted due to medical condition or safety concerns M. 1 step (curb) 88-Not attempted due to medical condition or safety concerns N. 4 steps 88-Not attempted due to medical condition or safety concerns O. 12 steps 88-Not attempted due to medical condition or safety concerns P. Picking up object 88-Not attempted due to medical condition or safety concerns R. Wheel 50 feet with two turns 88-Not attempted due to medical condition or safety concerns S. Wheel 150 feet 88-Not attempted due to medical condition or safety concerns - Bladder and Bowel Bladder continence Bowel continence - Endurance Fair - Balance Fair - Safety Awareness Fair CURRENT [facility]. DEFICITS: Self-Care, Mobility, Endurance, Balance, and Safety Awareness SIGNATURE PANEL: (NARCOTICS AND/OR VICE DETECTIVE)
--- NOTE | 2020-05-27 19:39 | PN ---
Date of Progress Note: 05/27/2020 Subjective: Patient was seen this morning for followup. No new complaints or problems reported by h im. Back pain remains unchanged. No nausea, no vomiting. He is reporting that since we started him on tamsulosin, he is able to void with less difficulty. Vital signs reviewed. His blood pressure w as on lower side. This morning, systolic blood pressure is around 96. Objective: HEENT: Unremarkable. Lungs: Clear to auscultation. Heart: Sounds normal. Abdomen: Soft. Bowel sounds normal. No guarding, rigidity, tenderness, distention. Extremities: No leg edema. Skin: No rash. No evidence of cellulitis. Back: Surgical scar appears normal and no evidence of any redness, discharge, swelling, very well he aled area. Laboratory Data: White count 11.2, hemoglobin 12.7, platelets 316. Sodium 134, potassium 3.3, gluco se 143, and hemoglobin A1c 7.6. Impression: 1.Leukocytosis. 2.Hypokalemia. 3.Hyponatremia. 4.Type 2 diabetes mellitus. Plan: We will go ahead and start patient on metformin 500 mg daily with breakfast per order. 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 I have reviewed his lab results and records available, which was sent to us when he was transferred from [place] and he was diagnosed as having SIADH as underlying cause of hyponatremia in [place]. I do not have any other suspicion for hyponatremia at this point. Patient is responding well to treatm ent. We will continue to replace potassium and monitor electrolytes as it becomes necessary. We gagan l hold his amlodipine and losartan if systolic blood pressure less than 130 and hold metoprolol if sy stolic blood pressure less than 120. Different causes of high white count explained to patient, but considering today's number, it looks much better than yesterday. No need for any other concerns exce pt periodic monitoring. ALVERTO/MODL Voice ID: [id number] Report ID: [id number]
[2020-05-27] MEDS: EZETIMIBE 10 MG TAB PO SCH (20:29)
[2020-05-28] MEDS: HYDROCODONE/APAP 10/325 TAB PO PRN ×4 (04:37→21:12)
[2020-05-28] MEDS: INSULIN -REGULAR HUMAN 50 UNIT/0.5 ML ML SQ SCH ×4 (07:30→21:00)
[2020-05-28] MEDS ORDERED: CIPROFLOXACIN HCL 500 MG TAB PO SCH (08:00)
[2020-05-28] MEDS: POLYETHYL GLY 3350 17 GM/DOSE PO SCH ×2 (09:20→20:00)
[2020-05-28] MEDS: ENOXAPARIN 30 MG/0.3 ML SQ SCH (09:20)
[2020-05-28] MEDS: LOSARTAN POTASSIUM 50 MG TABLET PO SCH (09:21)
[2020-05-28] MEDS: ASPIRIN EC 81 MG TAB PO SCH (09:22)
[2020-05-28] MEDS: SODIUM BICARB 325 MG TAB PO SCH ×2 (09:22→21:08)
[2020-05-28] MEDS: methocarbamoL 500 MG TAB PO SCH ×4 (09:22→21:09)
[2020-05-28] MEDS: SODIUM CHLORIDE 1 GM TAB PO SCH ×3 (09:23→16:36)
[2020-05-28] MEDS: CLOPIDOGREL 75 MG TABLET PO SCH (09:23)
[2020-05-28] MEDS: TAMSULOSIN 0.4 MG SR CAP PO SCH (09:23)
[2020-05-28] MEDS: FAMOTIDINE 20 MG TAB PO SCH (09:23)
[2020-05-28] MEDS: AMLODIPINE 5 MG TAB PO SCH ×2 (09:24→21:08)
[2020-05-28] MEDS: METFORMIN ER 500 MG TAB PO SCH (09:24)
[2020-05-28] MEDS: levoFLOXacin 500 MG TAB PO SCH (09:27)
[2020-05-28] MEDS: LIDOCAINE 4% PATCH TOP SCH (09:28)
[2020-05-28] MEDS: GABAPENTIN 300 MG CAP PO SCH ×2 (09:28→21:09)
--- NOTE | 2020-05-28 10:49 | PN ---
Date of Progress Note: 05/28/2020 Subjective: The patient was seen this morning for followup. No new complaints or problems reported by patient. Lying in bed, not in distress. Denies any trouble voiding. Had a bowel movement yesterday. No abdominal pain, nausea, or vomiting. No dysuria. Objective: Vital Signs: Reviewed. Remains afebrile. HEENT: Unremarkable. Lungs: Clear to auscultation. Heart: Sounds normal. Abdomen: Soft. Bowel sounds normal. No guarding, rigidity, tenderness, or distention. Extremities: No leg edema. Laboratory Data: Urine culture has grown pseudomonas and subsequently when I reviewed it second time, there was a second organism enterococcus. Impression: 1. Urinary tract infection. 2. Hypertension. 3. Coronary artery disease. 4. Type 2 diabetes mellitus. Plan: The patient's urinalysis is normal, but urine culture is growing 2 different bacteria. He recently had surgery and elevated white count. Recent Samuels catheter placement with the surgery. Considering all this at this point, this positive urine culture, I would like to treat it as if it is urinary tract infection, even with normal urinalysis. Benefit of treatment is more than the risk from antibiotic use. When I first saw urine culture result this morning, it had only 1 organism which was Pseudomonas and according to sensitivity report, Cipro was started, but then subsequently when I looked at it second time a few hours later, there was a second bacteria enterococcus and according to sensitivity, it is sensitive to Levaquin. Both of these organisms will be sensitive to Levaquin, so we will change from Cipro to Levaquin for that reason. All the details were discussed with the patient regarding justifications for antibiotic use and we will continue other current medical management. Fingerstick blood sugar readings reviewed. We will continue current metformin. ALVERTO/MODL Voice ID: [id number] Report ID: [id number] YASMIN
[2020-05-28] MEDS: METOPROLOL TAR 50 MG TAB PO SCH ×2 (11:01→21:09)
--- NOTE | 2020-05-28 14:57 | FAST ---
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 Munir Martins M.D. 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 EATING: EATING - STEP 1: Does the patient complete the activity by him/herself with no assistance (physical, verbal/nonverbal cueing, setup/clean-up)? No. EATING - STEP 2: Does the patient need only setup/clean-up assistance from one helper? Yes. 1. [id number] ADMISSION PERFORMANCE: Setup or clean-up assistance CODE: 05 ORAL HYGIENE: ORAL HYGIENE - STEP 1: Does the patient complete the activity by him/herself with no assistance (physical, verbal/nonverbal cueing, setup/clean-up)? No. ORAL HYGIENE - STEP 2: Does the patient need only setup/clean-up assistance from one helper? Yes. 1. [id number] ADMISSION PERFORMANCE: Setup or clean-up assistance CODE: 05 TOILETING HYGIENE: TOILETING HYGIENE - STEP 1: Does the patient complete the activity by him/herself with no assistance (physical, verbal/nonverbal cueing, setup/clean-up)? No. TOILETING HYGIENE - STEP 2: Does the patient need only setup/clean-up assistance from one helper? No. TOILETING HYGIENE - STEP 3: Does the patient need only verbal/nonverbal cueing or touching/steadying/contact guard assistance fro m one helper? No. TOILETING HYGIENE - STEP 4: Does the patient need physical assistance - for example lifting or trunk support from one helper - wi th the helper providing less than half of the effort? Yes. 1. [id number] ADMISSION PERFORMANCE: Partial/moderate assistance CODE: 03 BATHING: Not assessed/no information CODE: - DRESSING - UPPER BODY: DRESSING - UPPER BODY - STEP 1: Does the patient complete the activity by him/herself with no assistance (physical, verbal/nonverbal cueing, setup/clean-up)? No. DRESSING - UPPER BODY - STEP 2: Does the patient need only setup/clean-up assistance from one helper? No. DRESSING - UPPER BODY - STEP 3: Does the patient need only verbal/nonverbal cueing or touching/steadying/contact guard assistance fro m one helper? No. DRESSING - UPPER BODY - STEP 4: Does the patient need physical assistance - for example lifting or trunk support from one helper - wi th the helper providing less than half of the effort? Yes. 1. [id number] ADMISSION PERFORMANCE: Partial/moderate assistance CODE: 03 DRESSING - LOWER BODY: DRESSING - LOWER BODY - STEP 1: Does the patient complete the activity by him/herself with no assistance (physical, verbal/nonverbal cueing, setup/clean-up)? No. DRESSING - LOWER BODY - STEP 2: Does the patient need only setup/clean-up assistance from one helper? No. DRESSING - LOWER BODY - STEP 3: Does the patient need only verbal/nonverbal cueing or touching/steadying/contact guard assistance fro m one helper? No. DRESSING - LOWER BODY - STEP 4: Does the patient need physical assistance - for example lifting or trunk support from one helper - wi th the helper providing less than half of the effort? No. DRESSING - LOWER BODY - STEP 5: Does the patient need physical assistance - for example lifting or trunk support from one helper - wi th the helper providing more than half of the effort? Yes. 1. [id number] ADMISSION PERFORMANCE: Substantial/maximal assistance CODE: 02 PUTTING ON/TAKING OFF FOOTWEAR: FOOTWEAR - STEP 1: Does the patient complete the activity by him/herself with no assistance (physical, verbal/nonverbal cueing, setup/clean-up)? No. FOOTWEAR - STEP 2: Does the patient need only setup/clean-up assistance from one helper? No. FOOTWEAR - STEP 3: Does the patient need only verbal/nonverbal cueing or touching/steadying/contact guard assistance fro m one helper? No. FOOTWEAR - STEP 4: Does the patient need physical assistance - for example lifting or trunk support from one helper - wi th the helper providing less than half of the effort? No. FOOTWEAR - STEP 5: Does the patient need physical assistance - for example lifting or trunk support from one helper - wi th the helper providing more than half of the effort? Yes. 1. [id number] ADMISSION PERFORMANCE: Substantial/maximal assistance CODE: 02 ROLL LEFT AND RIGHT: ROLL LEFT AND RIGHT - STEP 1: Does the patient complete the activity by him/herself with no assistance (physical, verbal/nonverbal cueing, setup/clean-up)? No. ROLL LEFT AND RIGHT - STEP 2: Does the patient need only setup/clean-up assistance from one helper? No. ROLL LEFT AND RIGHT - STEP 3: Does the patient need only verbal/nonverbal cueing or touching/steadying/contact guard assistance fro m one helper? Yes. 1. [id number] ADMISSION PERFORMANCE: Supervision or touching assistance CODE: 04 SIT TO LYING: SIT TO LYING - STEP 1: Does the patient complete the activity by him/herself with no assistance (physical, verbal/nonverbal cueing, setup/clean-up)? No. SIT TO LYING - STEP 2: Does the patient need only setup/clean-up assistance from one helper? No. SIT TO LYING - STEP 3: Does the patient need only verbal/nonverbal cueing or touching/steadying/contact guard assistance fro m one helper? Yes. 1. [id number] ADMISSION PERFORMANCE: Supervision or touching assistance CODE: 04 LYING TO SITTING: LYING TO SITTING ON SIDE OF BED - STEP 1: Does the patient complete the activity by him/herself with no assistance (physical, verbal/nonverbal cueing, setup/clean-up)? No. LYING TO SITTING ON SIDE OF BED - STEP 2: Does the patient need only setup/clean-up assistance from one helper? No. LYING TO SITTING ON SIDE OF BED - STEP 3: Does the patient need only verbal/nonverbal cueing or touching/steadying/contact guard assistance fro m one helper? Yes. 1. [id number] ADMISSION PERFORMANCE: Supervision or touching assistance CODE: 04 SIT TO STAND: SIT TO STAND - STEP 1: Does the patient complete the activity by him/herself with no assistance (physical, verbal/nonverbal cueing, setup/clean-up)? No. SIT TO STAND - STEP 2: Does the patient need only setup/clean-up assistance from one helper? No. SIT TO STAND - STEP 3: Does the patient need only verbal/nonverbal cueing or touching/steadying/contact guard assistance fro m one helper? Yes. 1. [id number] ADMISSION PERFORMANCE: Supervision or touching assistance CODE: 04 TRANSFERS: BED, CHAIR: CHAIR/[id number] TRANSFER - STEP 1: Does the patient complete the activity by him/herself with no assistance (physical, verbal/nonverbal cueing, setup/clean-up)? No. CHAIR/[id number] TRANSFER - STEP 2: Does the patient need only setup/clean-up assistance from one helper? No. CHAIR/[id number] TRANSFER - STEP 3: Does the patient need only verbal/nonverbal cueing or touching/steadying/contact guard assistance fro m one helper? Yes. 1. [id number] ADMISSION PERFORMANCE: Supervision or touching assistance CODE: 04 TRANSFER TOILET: TOILET TRANSFER - STEP 1: Does the patient complete the activity by him/herself with no assistance (physical, verbal/nonverbal cueing, setup/clean-up)? No. TOILET TRANSFER - STEP 2: Does the patient need only setup/clean-up assistance from one helper? No. TOILET TRANSFER - STEP 3: Does the patient need only verbal/nonverbal cueing or touching/steadying/contact guard assistance fro m one helper? Yes. 1. [id number] ADMISSION PERFORMANCE: Supervision or touching assistance CODE: 04 TRANSFERS: CAR: Not assessed/no information CODE: - WALK 10 FEET: Not assessed/no information CODE: - 1 STEP (CURB): Not assessed/no information CODE: - PICKING UP OBJECT: Not assessed/no information CODE: - DOES THE PATIENT USE A WHEELCHAIR/SCOOTER? Q1. DOES THE PATIENT USE A WHEELCHAIR/SCOOTER?: Yes CODE: 1 WHEEL 50 FEET WITH TWO TURNS: WHEEL 50 FEET WITH TWO TURNS - STEP 1: Does the patient complete the activity by him/herself with no assistance (physical, verbal/nonverbal cueing, setup/clean-up)? No. WHEEL 50 FEET WITH TWO TURNS - STEP 2: Does the patient need only setup/clean-up assistance from one helper? No. WHEEL 50 FEET WITH TWO TURNS - STEP 3: Does the patient need only verbal/nonverbal cueing or touching/steadying/contact guard assistance fro m one helper? Yes. 1. [id number] ADMISSION PERFORMANCE: Supervision or touching assistance CODE: 04 INDICATE THE TYPE OF WHEELCHAIR/SCOOTER USED: RR1. INDICATE THE TYPE OF WHEELCHAIR/SCOOTER USED.: Manual CODE: 1 WHEEL 150 FEET: WHEEL 150 FEET - STEP 1: Does the patient complete the activity by him/herself with no assistance (physical, verbal/nonverbal cueing, setup/clean-up)? No. WHEEL 150 FEET - STEP 2: Does the patient need only setup/clean-up assistance from one helper? No. WHEEL 150 FEET - STEP 3: Does the patient need only verbal/nonverbal cueing or touching/steadying/contact guard assistance fro m one helper? Yes. 1. [id number] ADMISSION PERFORMANCE: Supervision or touching assistance CODE: 04 INDICATE THE TYPE OF WHEELCHAIR/SCOOTER USED: SS1. INDICATE THE TYPE OF WHEELCHAIR/SCOOTER USED.: Manual CODE: 1 BLADDER AND BOWEL: H350. BLADDER CONTINENCE (3-DAY ASSESSMENT PERIOD): Always continent (no documented incontinence) CODE: 0 H400. BOWEL CONTINENCE (3-DAY ASSESSMENT PERIOD): Always continent CODE: 0 SIGNATURE PANEL: The following modified sections: 1. [id number] Admission Performance, 1. [id number] Admission Performance, 1. NC8725V Admission Performance, 1. [id number] Admission Performance, 1. PT2670h Admission Performance, 1. NC1249s Admission Performance, 1. VI1270z Admission Performance, 1. MQ1017Y Admission Performance , 1. RY0200U Admission Performance, 1. IK7878C Admission Performance, 1. GP3426M Admission Performanc e, 1. ZB5194E Admission Performance, 1. AG7519V Admission Performance, 1. EH7700I Admission Performan ce, Q1. Does the patient use a wheelchair/scooter?, 1. AP1974E Admission Performance, RR1. Indicate t he type of wheelchair/scooter used., 1. [id number] Admission Performance, Code, SS1. Indicate the type o f wheelchair/scooter used., H350. Bladder Continence (3-day assessment period), H400. Bowel Continenc e (3-day assessment period) were [electronically] signed by Kindra JimenezNMarco Antonio on Sat May 28 2020 4:56:21 GMT-0600 (Central Standard Time)
[2020-05-28] MEDS: EZETIMIBE 10 MG TAB PO SCH (21:08)
[2020-05-29] MEDS: INSULIN -REGULAR HUMAN 50 UNIT/0.5 ML ML SQ SCH ×4 (07:30→20:48)
[2020-05-29] MEDS: LIDOCAINE 4% PATCH TOP SCH (07:53)
[2020-05-29] MEDS: ENOXAPARIN 30 MG/0.3 ML SQ SCH (07:53)
[2020-05-29] MEDS: FAMOTIDINE 20 MG TAB PO SCH (07:54)
[2020-05-29] MEDS: TAMSULOSIN 0.4 MG SR CAP PO SCH (07:54)
[2020-05-29] MEDS: levoFLOXacin 500 MG TAB PO SCH (07:54)
[2020-05-29] MEDS: METFORMIN ER 500 MG TAB PO SCH (07:54)
[2020-05-29] MEDS: SODIUM CHLORIDE 1 GM TAB PO SCH ×3 (07:55→17:04)
[2020-05-29] MEDS: AMLODIPINE 5 MG TAB PO SCH ×2 (07:55→20:45)
[2020-05-29] MEDS: CLOPIDOGREL 75 MG TABLET PO SCH (07:55)
[2020-05-29] MEDS: SODIUM BICARB 325 MG TAB PO SCH ×2 (07:55→20:43)
[2020-05-29] MEDS: LOSARTAN POTASSIUM 50 MG TABLET PO SCH (07:56)
[2020-05-29] MEDS: methocarbamoL 500 MG TAB PO SCH ×4 (07:56→20:43)
[2020-05-29] MEDS: ASPIRIN EC 81 MG TAB PO SCH (07:56)
[2020-05-29] MEDS: GABAPENTIN 300 MG CAP PO SCH ×2 (07:57→20:44)
[2020-05-29] MEDS: POLYETHYL GLY 3350 17 GM/DOSE PO SCH ×2 (08:00→20:00)
[2020-05-29] MEDS: HYDROCODONE/APAP 10/325 TAB PO PRN ×2 (10:08→19:05)
[2020-05-29] MEDS: METOPROLOL TAR 50 MG TAB PO SCH ×2 (10:24→20:45)
--- NOTE | 2020-05-29 10:44 | PN ---
Date of Progress Note: 05/29/2020 Subjective: The patient was seen this morning for followup. He is lying in bed, not in distress. N o new complaints or problems reported. Objective: Vital Signs: Reviewed. HEENT: Unremarkable. Lungs: Clear to auscultation. Heart: Sounds normal. Abdomen: Soft. Bowel sounds present. No guarding, rigidity, tenderness, distention. Extremities: No leg edema. Impression: 1.Traumatic fracture of spine, status post surgery. 2.Hypertension. 3.Coronary artery disease. 4.Hyperlipidemia. 5.Constipation. Plan: The patient's last bowel movement was day before yesterday. He uses MiraLAX on as needed basi s in the hospital and we will continue that. Continue current antihypertensive medication and DVT pr ophylaxis, and I will see him tomorrow for followup. ALVERTO/MODL Voice ID: [id number] Report ID: [id number]
[2020-05-29] MEDS: MELATONIN 3 MG TABLET PO PRN (20:44)
[2020-05-29] MEDS: EZETIMIBE 10 MG TAB PO SCH (22:35)
--- NOTE | 2020-05-30 02:15 | FAST ---
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 Munir Martins M.D. 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 EATING: Not assessed/no information CODE: - ORAL HYGIENE: Not assessed/no information CODE: - TOILETING HYGIENE: TOILETING HYGIENE - STEP 1: Does the patient complete the activity by him/herself with no assistance (physical, verbal/nonverbal cueing, setup/clean-up)? No. TOILETING HYGIENE - STEP 2: Does the patient need only setup/clean-up assistance from one helper? Yes. 1. [id number] ADMISSION PERFORMANCE: Setup or clean-up assistance CODE: 05 BATHING: Not assessed/no information CODE: - DRESSING - UPPER BODY: Not assessed/no information CODE: - DRESSING - LOWER BODY: Not assessed/no information CODE: - PUTTING ON/TAKING OFF FOOTWEAR: Not assessed/no information CODE: - ROLL LEFT AND RIGHT: Not assessed/no information CODE: - SIT TO LYING: Not assessed/no information CODE: - LYING TO SITTING: Not assessed/no information CODE: - SIT TO STAND: Not assessed/no information CODE: - TRANSFERS: BED, CHAIR: Not assessed/no information CODE: - TRANSFER TOILET: Not assessed/no information CODE: - TRANSFERS: CAR: Not assessed/no information CODE: - WALK 10 FEET: Not assessed/no information CODE: - 1 STEP (CURB): Not assessed/no information CODE: - PICKING UP OBJECT: Not assessed/no information CODE: - DOES THE PATIENT USE A WHEELCHAIR/SCOOTER? CODE: EXPR WHEEL 50 FEET WITH TWO TURNS: Not assessed/no information CODE: - INDICATE THE TYPE OF WHEELCHAIR/SCOOTER USED: CODE: EXPR WHEEL 150 FEET: Not assessed/no information CODE: - INDICATE THE TYPE OF WHEELCHAIR/SCOOTER USED: CODE: EXPR BLADDER AND BOWEL: H350. BLADDER CONTINENCE (3-DAY ASSESSMENT PERIOD): Always continent (no documented incontinence) CODE: 0 H400. BOWEL CONTINENCE (3-DAY ASSESSMENT PERIOD): Always continent CODE: 0
[2020-05-30 06:15] LABS: Absolute Lymphocytes (CBC) 1.3 K/uL (0.7-4.9); Basophils % 0.9 % (0-1.3); Hematocrit 37.6 % (39.6-49.0); Lymphocytes % 15.2 % (15.3-44.8); MPV 7.6 fL (7.6-11.3); RBC Red Blood Cell Count 4.36 M/uL (4.33-5.43)
[2020-05-30 06:26] LABS: BUN Blood Urea Nitrogen 8 mg/dL (7-18); Bicarbonate 30 mmol/L (21-32); Glucose Level 131 mg/dL (74-106); Potassium 3.4 mmol/L (3.5-5.1); Sodium Level 136 mmol/L (136-145)
[2020-05-30] MEDS ORDERED: POTASSIUM CL SA 10 MEQ TAB PO ONE (07:04)
[2020-05-30 07:24] LABS: Blood Morphology Comment NOT SEEN (NOT SEEN); Platelet Estimate ADEQ
[2020-05-30] MEDS: INSULIN -REGULAR HUMAN 50 UNIT/0.5 ML ML SQ SCH ×4 (07:30→20:12)
[2020-05-30] MEDS: ENOXAPARIN 30 MG/0.3 ML SQ SCH (07:42)
[2020-05-30] MEDS: methocarbamoL 500 MG TAB PO SCH ×4 (08:22→19:48)
[2020-05-30] MEDS: FAMOTIDINE 20 MG TAB PO SCH (08:22)
[2020-05-30] MEDS: POLYETHYL GLY 3350 17 GM/DOSE PO SCH ×2 (08:22→19:50)
[2020-05-30] MEDS: SODIUM BICARB 325 MG TAB PO SCH ×2 (08:23→19:52)
[2020-05-30] MEDS: CLOPIDOGREL 75 MG TABLET PO SCH (08:23)
[2020-05-30] MEDS: LOSARTAN POTASSIUM 50 MG TABLET PO SCH (08:23)
[2020-05-30] MEDS: GABAPENTIN 300 MG CAP PO SCH ×2 (08:23→19:52)
[2020-05-30] MEDS: levoFLOXacin 500 MG TAB PO SCH (08:23)
[2020-05-30] MEDS: ASPIRIN EC 81 MG TAB PO SCH (08:24)
[2020-05-30] MEDS: METOPROLOL TAR 50 MG TAB PO SCH ×2 (08:24→19:50)
[2020-05-30] MEDS: AMLODIPINE 5 MG TAB PO SCH ×2 (08:24→19:53)
[2020-05-30] MEDS: SODIUM CHLORIDE 1 GM TAB PO SCH ×3 (08:25→16:59)
[2020-05-30] MEDS: METFORMIN ER 500 MG TAB PO SCH (08:25)
[2020-05-30] MEDS: LIDOCAINE 4% PATCH TOP SCH (10:10)
[2020-05-30] MEDS: HYDROCODONE/APAP 10/325 TAB PO PRN ×2 (12:47→19:53)
[2020-05-30] MEDS: TAMSULOSIN 0.4 MG SR CAP PO SCH (16:59)
[2020-05-30] MEDS: MELATONIN 3 MG TABLET PO PRN (19:48)
[2020-05-30] MEDS: EZETIMIBE 10 MG TAB PO SCH (19:52)
--- NOTE | 2020-05-31 06:22 | PN ---
Date of Progress Note: 05/30/2020 Subjective: Patient was seen this morning for followup. No new complaints or problems reported by mariela emmanuel. Lying in bed, not in any distress. Objective: VITAL SIGNS: Reviewed. HEENT: Unremarkable. LUNGS: Clear to auscultation. HEART: Sounds normal. ABDOMEN: Soft. Bowel sounds normal. No guarding, rigidity, tenderness, or distention. EXTREMITIES: No leg edema. Laboratory Data: White count 8.7, hemoglobin 13, platelets 406. Sodium 136, potassium 3.4, chloride 100, bicarb 30, BUN 8, creatinine 0.75, glucose 131. Impression: 1.Urinary tract infection. 2.Hypokalemia. 3.Hypertension. 4.Benign prostatic hypertrophy. Plan: We will continue current antihypertensive medication. Continue metformin for diabetes mellitu s. Fingerstick blood sugar readings reviewed. The patient is on Levaquin for urinary tract infectio n, which we will continue. Replace potassium with oral potassium replacement per order. Continue ph ysical therapy under guidance of Dr. Martins. ALVERTO/MODL Voice ID: [id number] Report ID: [id number]
[2020-05-31] MEDS: LIDOCAINE 4% PATCH TOP SCH (07:01)
[2020-05-31] MEDS: ENOXAPARIN 30 MG/0.3 ML SQ SCH (07:01)
[2020-05-31] MEDS: INSULIN -REGULAR HUMAN 50 UNIT/0.5 ML ML SQ SCH ×4 (07:30→20:53)
[2020-05-31] MEDS: POLYETHYL GLY 3350 17 GM/DOSE PO SCH ×2 (08:45→20:00)
[2020-05-31] MEDS: methocarbamoL 500 MG TAB PO SCH ×4 (08:46→20:51)
[2020-05-31] MEDS: SODIUM BICARB 325 MG TAB PO SCH ×2 (08:47→20:51)
[2020-05-31] MEDS: LOSARTAN POTASSIUM 50 MG TABLET PO SCH (08:47)
[2020-05-31] MEDS: FAMOTIDINE 20 MG TAB PO SCH (08:47)
[2020-05-31] MEDS: levoFLOXacin 500 MG TAB PO SCH (08:48)
[2020-05-31] MEDS: METOPROLOL TAR 50 MG TAB PO SCH ×2 (08:48→20:00)
[2020-05-31] MEDS: AMLODIPINE 5 MG TAB PO SCH ×2 (08:48→20:00)
[2020-05-31] MEDS: SODIUM CHLORIDE 1 GM TAB PO SCH ×3 (08:48→16:46)
[2020-05-31] MEDS: GABAPENTIN 300 MG CAP PO SCH ×2 (08:48→20:52)
[2020-05-31] MEDS: METFORMIN ER 500 MG TAB PO SCH (08:48)
[2020-05-31] MEDS: ASPIRIN EC 81 MG TAB PO SCH (08:48)
[2020-05-31] MEDS: CLOPIDOGREL 75 MG TABLET PO SCH (08:49)
[2020-05-31] MEDS: HYDROCODONE/APAP 10/325 TAB PO PRN ×2 (12:29→16:00)
[2020-05-31] MEDS: TAMSULOSIN 0.4 MG SR CAP PO SCH (16:47)
[2020-05-31] MEDS: MELATONIN 3 MG TABLET PO PRN (20:52)
[2020-05-31] MEDS: EZETIMIBE 10 MG TAB PO SCH (20:52)
--- NOTE | 2020-05-31 21:19 | PN ---
Date of Progress Note: 05/31/2020 Subjective: The patient was seen this morning for followup. No new complaints or problems reported by the patient. He was lying in bed, not in distress. Objective: Vital Signs: Reviewed. HEENT: Unremarkable. Lungs: Clear to auscultation. Heart: Normal. Abdomen: Soft. Bowel sounds normal. No guarding, rigidity, tenderness, or distention. Extremities: No leg edema. Impression: 1.Spine fracture. 2.Hypertension. 3.Urinary tract infection. 4.Coronary artery disease. Plan: We will go ahead and continue current antibiotic. Continue current antihypertensive medicatio n and DVT prophylaxis. Continue physical therapy per Dr. Martins. I will see him tomorrow for foll owup. ALVERTO/MODL Voice ID: [id number] Report ID: [id number]
[2020-06-01] MEDS: HYDROCODONE/APAP 10/325 TAB PO PRN ×3 (07:03→20:51)
[2020-06-01] MEDS: ENOXAPARIN 30 MG/0.3 ML SQ SCH (07:03)
[2020-06-01] MEDS: INSULIN -REGULAR HUMAN 50 UNIT/0.5 ML ML SQ SCH ×4 (07:30→20:50)
[2020-06-01] MEDS: ASPIRIN EC 81 MG TAB PO SCH (08:00)
[2020-06-01] MEDS: AMLODIPINE 5 MG TAB PO SCH ×2 (08:00→20:49)
[2020-06-01] MEDS: LIDOCAINE 4% PATCH TOP SCH (08:45)
[2020-06-01] MEDS: LOSARTAN POTASSIUM 50 MG TABLET PO SCH (08:46)
[2020-06-01] MEDS: SODIUM CHLORIDE 1 GM TAB PO SCH ×3 (08:47→16:35)
[2020-06-01] MEDS: SODIUM BICARB 325 MG TAB PO SCH ×2 (08:47→20:50)
[2020-06-01] MEDS: METOPROLOL TAR 50 MG TAB PO SCH ×2 (08:47→20:47)
[2020-06-01] MEDS: CLOPIDOGREL 75 MG TABLET PO SCH (08:48)
[2020-06-01] MEDS: FAMOTIDINE 20 MG TAB PO SCH (08:48)
[2020-06-01] MEDS: GABAPENTIN 300 MG CAP PO SCH ×2 (08:49→20:49)
[2020-06-01] MEDS: levoFLOXacin 500 MG TAB PO SCH (08:49)
[2020-06-01] MEDS: POLYETHYL GLY 3350 17 GM/DOSE PO SCH ×2 (08:52→20:50)
[2020-06-01] MEDS: methocarbamoL 500 MG TAB PO SCH ×2 (08:56→12:24)
[2020-06-01] MEDS: METFORMIN ER 500 MG TAB PO SCH (09:01)
--- NOTE | 2020-06-01 12:43 | PN ---
Date of Progress Note: 06/01/2020 Subjective: Patient was seen this morning for followup. No new complaints or problems reported by h im. He is participating well with physical therapy. Has some constipation problem. Last bowel move ment was on Saturday. No abdominal pain or any discomfort. Objective: Vital Signs: Reviewed. HEENT: Unremarkable. Lungs: Clear to auscultation. Heart: Sounds normal. Abdomen: Soft. Bowel sounds normal. No guarding, rigidity, tenderness, distention. Extremities: No leg edema. Impression: 1.Constipation. 2.Hypertension. 3.Urinary tract infection. Plan: We will go ahead and add Senokot-S 2 tablets 2 times a day. Continue other current medication s. We will continue physical therapy under guidance of Dr. Martins and continue antibiotics as he i s taking currently. ALVERTO/MODL Voice ID: [id number] Report ID: [id number]
[2020-06-01] MEDS: methocarbamoL 750 MG TAB PO SCH ×2 (14:00→20:49)
--- NOTE | 2020-06-01 15:54 | R.PN ---
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 Pt denied any depression. WBC 8.7 neutrophils 70.2, glucose 116 to 120, prealbumin 17.5. UA show contamination. Self-propelled wheelchair 200' with supervision. VITAL SIGNS SBP/DBP: 97 to 148/57 to 74 Temperature: 97.4 F Pulse: 96 Resp: 16 MEDICATION ALLERGIES: No Known Drug Allergies (NKDA) ENVIRONMENTAL ALLERGIES: - Substance Allergies None Known - Other Allergies None Known NURSING: - Shower allowing shower - Bladder care per protocol - Skin care per protocol ACTIVITIES OOB only with supervision THERAPIES: - Orthotics/Prosthetics Orthotic Evaluation. Splinting/Casting. - Dietary and Nutrition Adequate Nutrition. Nutritional Education. Nutritional Supplements. PHYSICAL EXAM - Gen Alert and awake Lying in bed No apparent distress Oriented to: person, time, and place - Skin No skin breakdown. Normacephalic - Eyes No abnormalities - ENMT No abnormalities - Neck No abnormalities - CVS RRR - Chest No abnormalities - Resp No wheezing - Abd + bowel sounds - GI Soft Deferred - No abnormalities - Ext No significant edema. - MSK 4/5 weakness in both lower extremities. - Neuro No focal deficits - Psych Mild anxiety. ASSESSMENT: Pt. is a 74 yo Right-handed male of unknown race.On 05/16/[address] to 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 was independent/mod-I in Safety Awareness, Transfers Control, Endurance, and Sphincter Control; and he had good Locomotion and Self-Care.Curren tly, he has deficits of Balance, Transfers Control, Sphincter Control, Endurance, and Locomotion.Pt. is now referred to [facility] for acute in-patient rehabilitation in order to maximize patient's functional independence in activities of daily living, strength, ROM, and mobility .- Rehab Goal Patient has realistic goal of being discharged at assistance level 7-Ind to reside at Home with Fami ly/Relatives. MDM/PLAN: - Physical Therapy Gait dysfunction - to improve, our physical therapists will perform initial evaluation of pt's statu s upon admission and devise an individualized program for Gait Training, and Wheel Chair mobility Inability to transfer - to improve, our physical therapists will perform initial evaluation of pt's status upon admission and devise an individualized program for Bed mobility Need for home safety evaluation - to improve, our physical therapists will perform initial evaluatio n of pt's status upon admission and devise an individualized program for Home Evaluation Need in caregiver upon discharge - to improve, our physical therapists will perform initial evaluati on of pt's status upon admission and devise an individualized program for Caregiver Training New precaution - to improve, our physical therapists will perform initial evaluation of pt's status upon admission and devise an individualized program for Patient precaution education Edema - to improve, our physical therapists will perform initial evaluation of pt's status upon admi ssion and devise an individualized program for Elevation Training, and Lymphedema Therapy Poor balance - to improve, our physical therapists will perform initial evaluation of pt's status up on admission and devise an individualized program for Balance Training Poor endurance - to improve, our physical therapists will perform initial evaluation of pt's status upon admission and devise an individualized program for Endurance Training Weakness - to improve, our physical therapists will perform initial evaluation of pt's status upon a dmission and devise an individualized program for Aquatic Therapy, Neuromuscular Reeducation, and Str engthening Achieving independence - to improve, our physical therapists will perform initial evaluation of pt's status upon admission and devise an individualized program for Community Reintegration Activities - Occupational Therapy Need for manager critical care - to improve, our occupation therapists will perform initial evaluation of pt's status upon admission and devise an individualized program for Caregiver Training Weakness - to improve, our occupation therapists will perform initial evaluation of pt's status upon admission and devise an individualized program for Aquatic Therapy, Balance, Endurance, UE ROM, and UE strengthening - Other See attached MAR (Medication Administration Record) - Diet Type Continue Regular - Diet - Liquid Texture Continue Regular - Tube Feed Continue N/A - Bladder care per protocol - Skin care per protocol - Diet - Solid Texture Continue Regular - Shower allowing shower FUNCTIONAL STATUS: UPDATED AT WEEKLY TEAM CONFERENCE - Bladder Same accident frequency: 7-Ind - No accidents in the past 7 days - Bowel Same accident frequency: 7-Ind - No accidents in the past 7 days - Walking Same score based on distance walked: 0(N/A) - Wheelchair Same score based on distance traveled: 0(N/A) FUNCTIONAL STATUS: - Self-Care A. Eating Tamara B. Grooming Tamara C. Bathing sup D. Dressing - Upper sup E. Dressing - Lower Td F. Toileting sup - Sphincter Control G. Bladder control sup H. Bowel control sup - Transfers Control I. Bed/Chair/Wheelchair sup J. Toilet sup K. Tub/Shower Td - Locomotion L. Walk/Wheelchair (B) Td M. Stairs ADNO - Communication N. Comprehension (B) Tamara O. Expression (B) Tamara - Social Cognition P. Social Interaction Tamara Q. Problem Solving Tamara R. Memory Tamara - Endurance Good - Balance Good - Safety Awareness Good QI SCORES: - Self-Care A. Eating 04-Supervision or touching assistance B. Oral hygiene 03-Partial/moderate assistance C. Toileting hygiene 88-Not attempted due to medical condition or safety concerns E. Shower/bathe self 02-Substantial/maximal assistance F. Upper body dressing 03-Partial/moderate assistance G. Lower body dressing 02-Substantial/maximal assistance H. Putting on/taking off footwear 88-Not attempted due to medical condition or safety concerns - Mobility A. Roll left and right 02-Substantial/maximal assistance B. Sit to lying 02-Substantial/maximal assistance C. Lying to sitting on side of bed 02-Substantial/maximal assistance D. Sit to stand 03-Partial/moderate assistance E. Chair/eqz-da-mkjxn transfer 02-Substantial/maximal assistance F. Toilet transfer 88-Not attempted due to medical condition or safety concerns G. Car transfer 88-Not attempted due to medical condition or safety concerns I. Walk 10 feet 88-Not attempted due to medical condition or safety concerns J. Walk 50 feet with two turns 88-Not attempted due to medical condition or safety concerns K. Walk 150 feet 88-Not attempted due to medical condition or safety concerns L. Walking 10 feet on uneven surfaces 88-Not attempted due to medical condition or safety concerns M. 1 step (curb) 88-Not attempted due to medical condition or safety concerns N. 4 steps 88-Not attempted due to medical condition or safety concerns O. 12 steps 88-Not attempted due to medical condition or safety concerns P. Picking up object 88-Not attempted due to medical condition or safety concerns R. Wheel 50 feet with two turns 88-Not attempted due to medical condition or safety concerns S. Wheel 150 feet 88-Not attempted due to medical condition or safety concerns - Bladder and Bowel Bladder continence Bowel continence - Endurance Fair - Balance Fair - Safety Awareness Fair CURRENT [facility]. DEFICITS: Self-Care, Mobility, Endurance, Balance, and Safety Awareness SIGNATURE PANEL: (TECH BRAZER TESTER)
[2020-06-01] MEDS: TAMSULOSIN 0.4 MG SR CAP PO SCH (16:35)
[2020-06-01] MEDS: EZETIMIBE 10 MG TAB PO SCH (20:50)
[2020-06-01] MEDS ORDERED: methocarbamoL 500 MG TAB PO SCH (21:00)
[2020-06-02] MEDS: METOPROLOL TAR 50 MG TAB PO SCH ×2 (06:10→19:48)
[2020-06-02] MEDS: HYDROCODONE/APAP 10/325 TAB PO PRN ×3 (06:10→19:47)
[2020-06-02] MEDS: ENOXAPARIN 30 MG/0.3 ML SQ SCH (06:15)
[2020-06-02 06:22] LABS: Absolute Lymphocytes (CBC) 1.7 K/uL (0.7-4.9); Hematocrit 37.1 % (39.6-49.0); Lymphocytes % 19.2 % (15.3-44.8); MPV 7.5 fL (7.6-11.3); RBC Red Blood Cell Count 4.27 M/uL (4.33-5.43)
[2020-06-02 06:43] LABS: Albumin 2.9 g/dL (3.4-5.0); BUN Blood Urea Nitrogen 11 mg/dL (7-18); Bicarbonate 30 mmol/L (21-32); Glucose Level 125 mg/dL (74-106); Magnesium 2.1 mg/dL (1.8-2.4); Potassium 3.8 mmol/L (3.5-5.1); Prealbumin 18.2 mg/dL (20-40); Sodium Level 138 mmol/L (136-145)
[2020-06-02] MEDS: INSULIN -REGULAR HUMAN 50 UNIT/0.5 ML ML SQ SCH ×4 (07:30→19:49)
[2020-06-02] MEDS: LOSARTAN POTASSIUM 50 MG TABLET PO SCH (08:17)
[2020-06-02] MEDS: SODIUM BICARB 325 MG TAB PO SCH ×2 (08:17→19:45)
[2020-06-02] MEDS: SODIUM CHLORIDE 1 GM TAB PO SCH (08:17)
[2020-06-02] MEDS: levoFLOXacin 500 MG TAB PO SCH (08:18)
[2020-06-02] MEDS: ASPIRIN EC 81 MG TAB PO SCH (08:18)
[2020-06-02] MEDS: METFORMIN ER 500 MG TAB PO SCH (08:18)
[2020-06-02] MEDS: methocarbamoL 750 MG TAB PO SCH ×3 (08:19→19:45)
[2020-06-02] MEDS: AMLODIPINE 5 MG TAB PO SCH ×2 (08:19→19:46)
[2020-06-02] MEDS: CLOPIDOGREL 75 MG TABLET PO SCH (08:19)
[2020-06-02] MEDS: GABAPENTIN 300 MG CAP PO SCH ×2 (08:19→19:45)
[2020-06-02] MEDS: FAMOTIDINE 20 MG TAB PO SCH (08:20)
[2020-06-02] MEDS: LIDOCAINE 4% PATCH TOP SCH (08:20)
[2020-06-02] MEDS: POLYETHYL GLY 3350 17 GM/DOSE PO SCH ×2 (08:20→19:49)
[2020-06-02] MEDS ORDERED: BISACODYL 10 MG RECTAL SUPP PR ONE (08:22)
[2020-06-02] MEDS: DOCUSATE NA/SENNA CONC 1 TAB PO SCH ×2 (09:31→19:46)
--- NOTE | 2020-06-02 10:27 | PN ---
Date of Progress Note: 06/02/2020 Subjective: The patient was seen this morning for followup. No new complaints or problems reported by patient. Sitting in wheelchair. Denied any complaints. Still has not had a bowel movement for l ast 4 days now. Denies any abdominal pain. Objective: Vital signs: Reviewed. HEENT: Unremarkable. Lungs: Clear to auscultation. Heart: Sounds normal. Abdomen: Soft. Bowel sounds normal. No guarding, rigidity, tenderness, or distention. Extremities: No leg edema. Back: Examination shows presence of clear dressing present over the trevin gical site, which was not changed at our facility and this is what he came in with. Surrounding skin appears little bit irritated. No sign of any infection, but just appears to more like have a skin i rritation on the back. Laboratory Data: Labs reviewed. Impression: 1.Hyponatremia, resolved. 2.Hypertension. 3.Spine fracture, status post surgery. 4.Constipation. Plan: We will go ahead and add Senokot-S 2 tablets by mouth 2 times a day and also 1 dose of Dulcola x rectal suppository will be given today. I have advised nursing staff to protect area on the back w ith some padding to see if that alleviates some skin irritation. Otherwise, we will continue current antihypertensive medications and I will see him tomorrow for foll stephanie. ALVERTO/MODL Voice ID: [id number] Report ID: [id number]
[2020-06-02] MEDS: TAMSULOSIN 0.4 MG SR CAP PO SCH (17:08)
[2020-06-02] MEDS: EZETIMIBE 10 MG TAB PO SCH (19:47)
[2020-06-03] MEDS: HYDROCODONE/APAP 10/325 TAB PO PRN ×3 (06:19→17:59)
[2020-06-03] MEDS: METOPROLOL TAR 50 MG TAB PO SCH ×2 (06:20→20:34)
[2020-06-03] MEDS: INSULIN -REGULAR HUMAN 50 UNIT/0.5 ML ML SQ SCH ×4 (07:11→20:44)
[2020-06-03] MEDS: SODIUM BICARB 325 MG TAB PO SCH (08:00)
[2020-06-03] MEDS: POLYETHYL GLY 3350 17 GM/DOSE PO SCH ×2 (08:25→20:36)
[2020-06-03] MEDS: ENOXAPARIN 30 MG/0.3 ML SQ SCH (08:25)
[2020-06-03] MEDS: LIDOCAINE 4% PATCH TOP SCH (08:25)
[2020-06-03] MEDS: FAMOTIDINE 20 MG TAB PO SCH (08:26)
[2020-06-03] MEDS: DOCUSATE NA/SENNA CONC 1 TAB PO SCH ×2 (08:27→20:35)
[2020-06-03] MEDS: LOSARTAN POTASSIUM 50 MG TABLET PO SCH (08:28)
[2020-06-03] MEDS: METFORMIN ER 500 MG TAB PO SCH (08:28)
[2020-06-03] MEDS: AMLODIPINE 5 MG TAB PO SCH ×2 (08:29→20:35)
[2020-06-03] MEDS: methocarbamoL 750 MG TAB PO SCH ×3 (08:29→20:35)
[2020-06-03] MEDS: CLOPIDOGREL 75 MG TABLET PO SCH (08:30)
[2020-06-03] MEDS: GABAPENTIN 300 MG CAP PO SCH ×2 (08:31→20:35)
[2020-06-03] MEDS: ASPIRIN EC 81 MG TAB PO SCH (08:31)
[2020-06-03] MEDS: levoFLOXacin 500 MG TAB PO SCH (08:31)
[2020-06-03] MEDS: DRISDOL (VITAMIN D=ERGOCALCIFEROL) 50000 UNIT CAP PO SCH (08:33)
--- NOTE | 2020-06-03 10:01 | P.RH.PN ---
Estimated Length of Stay: 17 Expected Discharge Date: 06/09/20 Discharge Disposition Plan: Home Family Support: Yes Skilled Nursing Goal: Mobility, Transfers, Self Care Vital Signs: Last Vital Signs Temp 98 F 06/03/20 07:23 Pulse 91 H 06/03/20 08:29 Resp 16 06/03/20 08:29 BP 167/92 H 06/03/20 08:29 Pulse Ox 99 06/03/20 08:29 Laboratory: Laboratory Last Values WBC 8.9 K/uL (4.3-10.9) 06/02/20 05:48 RBC 4.27 M/uL (4.33-5.43) L 06/02/20 05:48 Hgb 12.7 g/dL (13.6-17.9) L 06/02/20 05:48 Hct 37.1 % (39.6-49.0) L 06/02/20 05:48 MCV 86.8 fL (80-100) 06/02/20 05:48 MCH 29.8 pg (27.0-35.0) 06/02/20 05:48 MCHC 34.3 g/dL (32.0-36.0) 06/02/20 05:48 RDW 14.1 % (12.1-15.2) 06/02/20 05:48 Plt Count 466 K/uL (152-406) H 06/02/20 05:48 MPV 7.5 fL (7.6-11.3) L 06/02/20 05:48 Neutrophils % 67.5 % (41.7-73.7) 06/02/20 05:48 Lymphocytes % 19.2 % (15.3-44.8) 06/02/20 05:48 Monocytes % 9.7 % (3.3-12.3) 06/02/20 05:48 Eosinophils % 2.6 % (0-4.4) 06/02/20 05:48 Basophils % 1.0 % (0-1.3) 06/02/20 05:48 Absolute Neutrophils 6.0 K/uL (1.8-8.0) 06/02/20 05:48 Segmented Neutrophils 68 % (40-80) 05/30/20 06:04 Absolute Lymphocytes 1.7 K/uL (0.7-4.9) 06/02/20 05:48 Lymphocytes 20 % (15-42) 05/30/20 06:04 Monocytes 5 % (0-10) 05/30/20 06:04 Absolute Monocytes 0.9 K/uL (0.1-1.3) 06/02/20 05:48 Eosinophils 6 % (0-3) H 05/30/20 06:04 Absolute Eosinophils 0.2 K/uL (0-0.5) 06/02/20 05:48 Basophils 1 % (0-1) 05/30/20 06:04 Absolute Basophils 0.1 K/uL (0-0.5) 06/02/20 05:48 Atypical Lymphocytes 1 % 05/25/20 05:33 Platelet Estimate Adeq 05/30/20 06:04 Morphology Comment Not seen (NOT SEEN) 05/30/20 06:04 Sodium 138 mmol/L (136-145) 06/02/20 05:48 Potassium 3.8 mmol/L (3.5-5.1) 06/02/20 05:48 Chloride 103 mmol/L (98-107) 06/02/20 05:48 Carbon Dioxide 30 mmol/L (21-32) 06/02/20 05:48 BUN 11 mg/dL (7-18) 06/02/20 05:48 Creatinine 0.82 mg/dL (0.55-1.3) 06/02/20 05:48 Estimated GFR > 90 mL/min (=/>90) 06/02/20 05:48 Glucose 125 mg/dL (74-106) H 06/02/20 05:48 POC Glucose 128 mg/dL (65-120) H 06/03/20 06:14 Hemoglobin A1c 7.6 % (4.2-6.3) H 05/27/20 06:39 Calcium 8.7 mg/dL (8.5-10.1) 06/02/20 05:48 Magnesium 2.1 mg/dL (1.8-2.4) 06/02/20 05:48 Total Bilirubin 0.5 mg/dL (0.2-1.0) 05/27/20 06:39 AST 58 U/L (15-37) H 05/27/20 06:39 ALT 51 U/L (12-78) 05/27/20 06:39 Alkaline Phosphatase 95 U/L (45-117) 05/27/20 06:39 Serum Total Protein 6.7 g/dL (6.4-8.2) 05/27/20 06:39 Albumin 2.9 g/dL (3.4-5.0) L 06/02/20 05:48 Globulin 4.2 g/dL (2.3-3.5) H 05/27/20 06:39 Albumin/Globulin Ratio 0.6 (1.1-1.8) L 05/27/20 06:39 Prealbumin 18.2 mg/dL (20-40) L 06/02/20 05:48 Urine Color Yellow 05/24/20 15:35 Urine Appearance Clear 05/24/20 15:35 Urine pH 7.0 (5.0-7.0) 05/24/20 15:35 Ur Specific [place] 1.020 (1.005-1.030) 05/24/20 15:35 Glucose (UA)(Auto) Trace (NEG) 05/24/20 15:35 Urine Ketones Negative (NEG) 05/24/20 15:35 Urine Blood Negative (NEG) 05/24/20 15:35 Urine Nitrite Negative (NEG) 05/24/20 15:35 Urine Bilirubin Negative (NEG) 05/24/20 15:35 Urine Urobilinogen 0.2 mg/dL (0.2-1.0) 05/24/20 15:35 Ur Leukocyte Esterase Negative (NEG) 05/24/20 15:35 Urine RBC <5 /HPF (NONE SEEN) 05/24/20 15:35 Urine WBC <5 /HPF (<5) 05/24/20 15:35 Ur Squamous Epith Cells <5 /HPF (NONE SEEN) 05/24/20 15:35 Urine Bacteria <20 /HPF (NONE SEEN) 05/24/20 15:35 Urine Culture Reflexed Not needed 05/24/20 15:35 Urine Total Protein Negative (NEG) 05/24/20 15:35 SARS-CoV-2 RNA (RT-PCR) Negative (NEGATIVE) 05/24/20 15:20 Smear Scan Ok (OK) 05/26/20 06:16 Weight: 267 lb 6.4 oz Wound Present: Yes Closed Surgical Incision Present: Yes Negative Pressure Wound Therapy Present: No Physician Update: Labs reviewed and are stable. He is doing well with all therapy. No new complaints. Functional Improvement: pt has demonstrated progress throughout the week. He is tolerating OOB activity better and is able to perform functional activity without the need for physical assist. pt does continue to require some SBA during ambulation for cues for proper posturing and gait mechanics. pt is on track for home discharge. 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 Please see the Rehabilitation Signature page for all necessary signatures.
--- NOTE | 2020-06-03 12:07 | PN ---
Date of Progress Note: 06/03/2020 Subjective: Patient was seen this morning for followup. No new complaints or problems reported by mariela emmanuel. He was sitting in the wheelchair. Had a bowel movement yesterday. Denies any new complaint s. Objective: Vital Signs: Reviewed. HEENT: Examination unremarkable. Lungs: Clear to auscultation. Heart: Sounds normal. Abdomen: Soft. Bowel sounds normal. No guarding, rigidity, tenderness, distention. Extremities: No leg edema. Skin: Skin irritation from his back looks much better today than yesterday as we started protecting his skin with some pads applying on his back to protect his skin from any kind of friction or rubbing . Impression: 1.Constipation, improved. 2.Hypertension. 3.Spine fracture, status post surgery. Plan: We will continue current medication. Continue current stool softener and laxative, current an tihypertensive medication. DVT prophylaxis. I will see him tomorrow for followup. ALVERTO/MODL Voice ID: [id number] Report ID: [id number]
[2020-06-03] MEDS: TAMSULOSIN 0.4 MG SR CAP PO SCH (17:17)
[2020-06-03] MEDS: EZETIMIBE 10 MG TAB PO SCH (20:36)
[2020-06-04] MEDS: HYDROCODONE/APAP 10/325 TAB PO PRN ×4 (01:04→17:01)
[2020-06-04] MEDS: LIDOCAINE 4% PATCH TOP SCH (06:58)
[2020-06-04] MEDS: INSULIN -REGULAR HUMAN 50 UNIT/0.5 ML ML SQ SCH ×4 (07:30→20:34)
[2020-06-04] MEDS: ENOXAPARIN 30 MG/0.3 ML SQ SCH (08:16)
[2020-06-04] MEDS: POLYETHYL GLY 3350 17 GM/DOSE PO SCH ×2 (08:53→20:00)
[2020-06-04] MEDS: ASPIRIN EC 81 MG TAB PO SCH (08:54)
[2020-06-04] MEDS: DOCUSATE NA/SENNA CONC 1 TAB PO SCH ×2 (08:54→20:32)
[2020-06-04] MEDS: METFORMIN ER 500 MG TAB PO SCH (08:54)
[2020-06-04] MEDS: GABAPENTIN 300 MG CAP PO SCH ×2 (08:54→20:32)
[2020-06-04] MEDS: methocarbamoL 750 MG TAB PO SCH ×3 (08:54→20:32)
[2020-06-04] MEDS: levoFLOXacin 500 MG TAB PO SCH (08:54)
[2020-06-04] MEDS: FAMOTIDINE 20 MG TAB PO SCH (08:55)
[2020-06-04] MEDS: AMLODIPINE 5 MG TAB PO SCH ×2 (08:55→20:33)
[2020-06-04] MEDS: LOSARTAN POTASSIUM 50 MG TABLET PO SCH ×2 (08:55→20:32)
[2020-06-04] MEDS: CLOPIDOGREL 75 MG TABLET PO SCH (08:56)
[2020-06-04] MEDS: METOPROLOL TAR 50 MG TAB PO SCH ×2 (08:56→20:33)
--- NOTE | 2020-06-04 11:35 | PN ---
Date of Progress Note: 06/04/2020 Subjective: The patient was seen this morning for followup. He was lying in bed, not in any distres s. Denied any complaints. Had a bowel movement again this morning so for last 2 days, he has been h aving bowel movements and constipation, however, which is resolved now. Denies any abdominal pain. No nausea, no vomiting. Objective: HEENT: Unremarkable. Lungs: Clear to auscultation. Heart: Sounds normal. Abdomen: Soft. Bowel sounds normal. No guarding, rigidity, tenderness, or distention. Extremities: No leg edema. Skin: Back examination shows normal appearance of the skin. He had some skin irritation on the back , which has completely resolved now since we started putting protective pads on the back to protect h is skin from any irritation. Impression: 1.Hyponatremia, resolved. 2.Hypertension. 3.Spine fracture. 4.Constipation. Plan: We will go ahead and continue current stool softener and laxative. We will also continue curr ent antihypertensive medication, which is metoprolol, amlodipine, and losartan, but he takes losartan 25 mg once a day in morning and his blood pressure runs higher in the morning compared to other time of the day, so what I will do is starting tonight, we will start him on losartan 25 mg at bedtime an d if that is not adequate to control blood pressure, then we will go ahead and increase dose of losartan to 50 mg at bedtime. Details were discussed with the patient. ALVERTO/MODL Voice ID: [id number] Report ID: [id number]
[2020-06-04] MEDS: TAMSULOSIN 0.4 MG SR CAP PO SCH (16:59)
[2020-06-04] MEDS: EZETIMIBE 10 MG TAB PO SCH (20:33)
[2020-06-04] MEDS: MELATONIN 3 MG TABLET PO PRN (20:33)
--- NOTE | 2020-06-04 21:13 | R.PN ---
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 Pt denied any depression. WBC 8.9, neutrophils 67.5, glucose 99 to 118, prealbumin 17.5. UA shows contamination. Self-propelled wheelchair 200' with minimum assistance for steering. Ambulated 200' with standby assistance using a rolling walker. VITAL SIGNS SBP/DBP: 141/70 Temperature: 97.5 F Pulse: 89 Resp: 16 MEDICATION ALLERGIES: No Known Drug Allergies (NKDA) ENVIRONMENTAL ALLERGIES: - Substance Allergies None Known - Other Allergies None Known NURSING: - Shower allowing shower - Bladder care per protocol - Skin care per protocol ACTIVITIES OOB only with supervision THERAPIES: - Orthotics/Prosthetics Orthotic Evaluation. Splinting/Casting. - Dietary and Nutrition Adequate Nutrition. Nutritional Education. Nutritional Supplements. PHYSICAL EXAM - Gen Alert and awake Lying in bed No apparent distress Oriented to: person, time, and place - Skin No skin breakdown. Normacephalic - Eyes No abnormalities - ENMT No abnormalities - Neck No abnormalities - CVS RRR - Chest No abnormalities - Resp No wheezing - Abd + bowel sounds - GI Soft Deferred - No abnormalities - Ext No significant edema. - MSK 4/5 weakness in both lower extremities. - Neuro No focal deficits - Psych Mild anxiety. ASSESSMENT: Pt. is a 74 yo Right-handed male of unknown race.On 05/16/[address] 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 was independent/mod-I in Safety Awareness, Transfers Control, Endurance, and Sphincter Control; and he had good Locomotion and Self-Care.Curren tly, he has deficits of Balance, Transfers Control, Sphincter Control, Endurance, and Locomotion.Pt. is now referred to [facility] for acute in-patient rehabilitation in order to maximize patient's functional independence in activities of daily living, strength, ROM, and mobility .- Rehab Goal Patient has realistic goal of being discharged at assistance level 7-Ind to reside at Home with Fami ly/Relatives. MDM/PLAN: - Physical Therapy Gait dysfunction - to improve, our physical therapists will perform initial evaluation of pt's statu s upon admission and devise an individualized program for Gait Training, and Wheel Chair mobility Inability to transfer - to improve, our physical therapists will perform initial evaluation of pt's status upon admission and devise an individualized program for Bed mobility Need for home safety evaluation - to improve, our physical therapists will perform initial evaluatio n of pt's status upon admission and devise an individualized program for Home Evaluation Need in caregiver upon discharge - to improve, our physical therapists will perform initial evaluati on of pt's status upon admission and devise an individualized program for Caregiver Training New precaution - to improve, our physical therapists will perform initial evaluation of pt's status upon admission and devise an individualized program for Patient precaution education Edema - to improve, our physical therapists will perform initial evaluation of pt's status upon admi ssion and devise an individualized program for Elevation Training, and Lymphedema Therapy Poor balance - to improve, our physical therapists will perform initial evaluation of pt's status up on admission and devise an individualized program for Balance Training Poor endurance - to improve, our physical therapists will perform initial evaluation of pt's status upon admission and devise an individualized program for Endurance Training Weakness - to improve, our physical therapists will perform initial evaluation of pt's status upon a dmission and devise an individualized program for Aquatic Therapy, Neuromuscular Reeducation, and Str engthening Achieving independence - to improve, our physical therapists will perform initial evaluation of pt's status upon admission and devise an individualized program for Community Reintegration Activities - Occupational Therapy Need for anesthesiologist and critical care - to improve, our occupation therapists will perform initial evaluation of pt's status upon admission and devise an individualized program for Caregiver Training Weakness - to improve, our occupation therapists will perform initial evaluation of pt's status upon admission and devise an individualized program for Aquatic Therapy, Balance, Endurance, UE ROM, and UE strengthening - Other See attached MAR (Medication Administration Record) - Diet Type Continue Regular - Diet - Liquid Texture Continue Regular - Tube Feed Continue N/A - Bladder care per protocol - Skin care per protocol - Diet - Solid Texture Continue Regular - Shower allowing shower FUNCTIONAL STATUS: UPDATED AT WEEKLY TEAM CONFERENCE - Bladder Same accident frequency: 7-Ind - No accidents in the past 7 days - Bowel Same accident frequency: 7-Ind - No accidents in the past 7 days - Walking Same score based on distance walked: 0(N/A) - Wheelchair Same score based on distance traveled: 0(N/A) FUNCTIONAL STATUS: - Self-Care A. Eating Tamara B. Grooming Tamara C. Bathing sup D. Dressing - Upper sup E. Dressing - Lower Td F. Toileting sup - Sphincter Control G. Bladder control sup H. Bowel control sup - Transfers Control I. Bed/Chair/Wheelchair sup J. Toilet sup K. Tub/Shower Td - Locomotion L. Walk/Wheelchair (B) Td M. Stairs ADNO - Communication N. Comprehension (B) Tamara O. Expression (B) Tamara - Social Cognition P. Social Interaction Tamara Q. Problem Solving Tamara R. Memory Tamara - Endurance Good - Balance Good - Safety Awareness Good QI SCORES: - Self-Care A. Eating 04-Supervision or touching assistance B. Oral hygiene 03-Partial/moderate assistance C. Toileting hygiene 88-Not attempted due to medical condition or safety concerns E. Shower/bathe self 02-Substantial/maximal assistance F. Upper body dressing 03-Partial/moderate assistance G. Lower body dressing 02-Substantial/maximal assistance H. Putting on/taking off footwear 88-Not attempted due to medical condition or safety concerns - Mobility A. Roll left and right 02-Substantial/maximal assistance B. Sit to lying 02-Substantial/maximal assistance C. Lying to sitting on side of bed 02-Substantial/maximal assistance D. Sit to stand 03-Partial/moderate assistance E. Chair/[id number] transfer 02-Substantial/maximal assistance F. Toilet transfer 88-Not attempted due to medical condition or safety concerns G. Car transfer 88-Not attempted due to medical condition or safety concerns I. Walk 10 feet 88-Not attempted due to medical condition or safety concerns J. Walk 50 feet with two turns 88-Not attempted due to medical condition or safety concerns K. Walk 150 feet 88-Not attempted due to medical condition or safety concerns L. Walking 10 feet on uneven surfaces 88-Not attempted due to medical condition or safety concerns M. 1 step (curb) 88-Not attempted due to medical condition or safety concerns N. 4 steps 88-Not attempted due to medical condition or safety concerns O. 12 steps 88-Not attempted due to medical condition or safety concerns P. Picking up object 88-Not attempted due to medical condition or safety concerns R. Wheel 50 feet with two turns 88-Not attempted due to medical condition or safety concerns S. Wheel 150 feet 88-Not attempted due to medical condition or safety concerns - Bladder and Bowel Bladder continence Bowel continence - Endurance Fair - Balance Fair - Safety Awareness Fair CURRENT [facility]. 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
[2020-06-05] MEDS: HYDROCODONE/APAP 10/325 TAB PO PRN ×4 (06:07→22:38)
[2020-06-05] MEDS: METOPROLOL TAR 50 MG TAB PO SCH ×2 (06:23→19:44)
[2020-06-05] MEDS: INSULIN -REGULAR HUMAN 50 UNIT/0.5 ML ML SQ SCH ×4 (07:30→20:27)
[2020-06-05] MEDS: LIDOCAINE 4% PATCH TOP SCH (08:00)
[2020-06-05] MEDS: POLYETHYL GLY 3350 17 GM/DOSE PO SCH ×2 (08:00→19:45)
[2020-06-05] MEDS: levoFLOXacin 500 MG TAB PO SCH (09:30)
[2020-06-05] MEDS: ENOXAPARIN 30 MG/0.3 ML SQ SCH (09:30)
[2020-06-05] MEDS: CLOPIDOGREL 75 MG TABLET PO SCH (09:31)
[2020-06-05] MEDS: DOCUSATE NA/SENNA CONC 1 TAB PO SCH ×2 (09:31→19:43)
[2020-06-05] MEDS: methocarbamoL 750 MG TAB PO SCH ×3 (09:31→19:43)
[2020-06-05] MEDS: FAMOTIDINE 20 MG TAB PO SCH (09:31)
[2020-06-05] MEDS: METFORMIN ER 500 MG TAB PO SCH (09:32)
[2020-06-05] MEDS: GABAPENTIN 300 MG CAP PO SCH ×2 (09:32→19:44)
[2020-06-05] MEDS: AMLODIPINE 5 MG TAB PO SCH ×2 (09:32→19:44)
[2020-06-05] MEDS: ASPIRIN EC 81 MG TAB PO SCH (09:32)
--- NOTE | 2020-06-05 13:42 | PN ---
Date of Progress Note: 06/05/2020 Subjective: Patient was seen this morning for followup. No new complaints or problems reported by p atmagalie. Lying in bed not in distress. Had 2 bowel movement this morning. So, constipation problem has resolved now. Denies any abdominal pain. No nausea or vomiting. Vital signs reviewed. Blood p ressure is under much better control this morning, after we made changes yesterday. Objective: HEENT: Unremarkable. LUNGS: Clear to auscultation. HEART: Sounds normal. ABDOMEN: Soft. Bowel sounds normal. No guarding, rigidity, tenderness, or distention. EXTREMITIES: No leg edema. Impression: 1.Hypertension. 2.Spine fracture, status post surgery. 3.Constipation. 4.Coronary artery disease. Plan: We will go ahead and continue current Lovenox for DVT prophylaxis. Continue current antihyper tensive medication and we will continue current stool softener. Continue to monitor blood pressure, if necessary make adjustment on antihypertensive medication. We will repeat blood work tomorrow morn ing. Continue current antibiotic Levaquin for urinary tract infection. The patient's skin examinati on on the back is normal. There is no evidence of any skin irritation and it appears normal and we w ill continue to protect his skin by applying a pad over the back area to protect his skin from any irritation. ALVERTO/MODL Voice ID: [id number] Report ID: [id number]
[2020-06-05] MEDS: TAMSULOSIN 0.4 MG SR CAP PO SCH (16:36)
[2020-06-05] MEDS: MELATONIN 3 MG TABLET PO PRN (19:43)
[2020-06-05] MEDS: EZETIMIBE 10 MG TAB PO SCH (19:44)
[2020-06-05] MEDS: LOSARTAN POTASSIUM 50 MG TABLET PO SCH (19:44)
[2020-06-06 06:02] LABS: Absolute Lymphocytes (CBC) 1.6 K/uL (0.7-4.9); Basophils % 1.2 % (0-1.3); Hematocrit 36.7 % (39.6-49.0); Lymphocytes % 25.4 % (15.3-44.8); MPV 7.3 fL (7.6-11.3); RBC Red Blood Cell Count 4.22 M/uL (4.33-5.43)
[2020-06-06 06:20] LABS: ALT/SGPT 26 U/L (12-78); AST/SGOT 15 U/L (15-37); Albumin 2.9 g/dL (3.4-5.0); Alkaline Phosphatase 124 U/L (45-117); BUN Blood Urea Nitrogen 11 mg/dL (7-18); Bicarbonate 31 mmol/L (21-32); Bilirubin Total 0.4 mg/dL (0.2-1.0); Glucose Level 128 mg/dL (74-106); Potassium 3.6 mmol/L (3.5-5.1); Protein, Total 6.4 g/dL (6.4-8.2); Sodium Level 138 mmol/L (136-145)
[2020-06-06] MEDS: INSULIN -REGULAR HUMAN 50 UNIT/0.5 ML ML SQ SCH ×4 (07:30→20:14)
[2020-06-06] MEDS: POLYETHYL GLY 3350 17 GM/DOSE PO SCH ×3 (08:00→19:28)
[2020-06-06] MEDS: ENOXAPARIN 30 MG/0.3 ML SQ SCH (08:00)
[2020-06-06] MEDS: levoFLOXacin 500 MG TAB PO SCH (08:06)
[2020-06-06] MEDS: ASPIRIN EC 81 MG TAB PO SCH (08:06)
[2020-06-06] MEDS: DOCUSATE NA/SENNA CONC 1 TAB PO SCH ×3 (08:06→19:26)
[2020-06-06] MEDS: CLOPIDOGREL 75 MG TABLET PO SCH (08:07)
[2020-06-06] MEDS: FAMOTIDINE 20 MG TAB PO SCH (08:07)
[2020-06-06] MEDS: GABAPENTIN 300 MG CAP PO SCH ×2 (08:07→19:18)
[2020-06-06] MEDS: methocarbamoL 750 MG TAB PO SCH ×3 (08:07→20:13)
[2020-06-06] MEDS: METFORMIN ER 500 MG TAB PO SCH (08:08)
[2020-06-06] MEDS: METOPROLOL TAR 50 MG TAB PO SCH ×2 (08:08→19:18)
[2020-06-06] MEDS: HYDROCODONE/APAP 10/325 TAB PO PRN ×3 (08:10→19:17)
[2020-06-06] MEDS: LIDOCAINE 4% PATCH TOP SCH (08:10)
[2020-06-06] MEDS: AMLODIPINE 5 MG TAB PO SCH ×2 (08:15→19:19)
[2020-06-06] MEDS: TAMSULOSIN 0.4 MG SR CAP PO SCH (17:02)
--- NOTE | 2020-06-06 18:16 | R.PN ---
PROGRESS NOTES ENCOUNTER DATE AND TIME: 06/06/2020 18:09 (PHYSICIAN IN PRIVATE PRACTICE) NAME CHARLIE KENDALL DATE OF : 1945 DATE OF ADMISSION: 05/25/2020 15:42 (PHYSICIAN IN PRIVATE PRACTICE) T12 VERTEBRAL FRACTURECHIEF COMPLAINT: Vertebral fracture SUBJECTIVE: Pt denied any Shortness of Breath. Pt denied any depression. WBC 6.4, neutrophils 59.5, glucose 86 to 129, prealbumin 17.5. BMP is normal. UA shows contamination. Self-propelled wheelchair 250' with independence. Ambulated 500' with independence using a rolling walker. Up and down 12 steps with standby assistance . VITAL SIGNS SBP/DBP: 136/76 Temperature: 97.5 F Pulse: 99 Resp: 16 MEDICATION ALLERGIES: No Known Drug Allergies (NKDA) ENVIRONMENTAL ALLERGIES: - Substance Allergies None Known - Other Allergies None Known NURSING: - Shower allowing shower - Bladder care per protocol - Skin care per protocol ACTIVITIES OOB only with supervision THERAPIES: - Orthotics/Prosthetics Orthotic Evaluation. Splinting/Casting. - Dietary and Nutrition Adequate Nutrition. Nutritional Education. Nutritional Supplements. PHYSICAL EXAM - Gen Alert and awake Lying in bed No apparent distress Oriented to: person, time, and place - Skin No skin breakdown. Normacephalic - Eyes No abnormalities - ENMT No abnormalities - Neck No abnormalities - CVS RRR - Chest No abnormalities - Resp No wheezing - Abd + bowel sounds - GI Soft Deferred - No abnormalities - Ext No significant edema. - MSK 4/5 weakness in both lower extremities. - Neuro No focal deficits - Psych Mild anxiety. ASSESSMENT: Pt. 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 was independent/mod-I in Safety Awareness, Transfers Control, Endurance, and Sphincter Control; and he had good Locomotion and Self-Care.Mariam tloctaviano, he has deficits of Balance, Transfers Control, Sphincter Control, Endurance, and Locomotion.Pt. is now referred to [facility] for acute in-patient rehabilitation in order to maximize patient's functional independence in activities of daily living, strength, ROM, and mobility .- Rehab Goal Patient has realistic goal of being discharged at assistance level 7-Ind to reside at Home with Fami ly/Relatives. MDM/PLAN: - Physical Therapy Gait dysfunction - to improve, our physical therapists will perform initial evaluation of pt's statu s upon admission and devise an individualized program for Gait Training, and Wheel Chair mobility Inability to transfer - to improve, our physical therapists will perform initial evaluation of pt's status upon admission and devise an individualized program for Bed mobility Need for home safety evaluation - to improve, our physical therapists will perform initial evaluatio n of pt's status upon admission and devise an individualized program for Home Evaluation Need in caregiver upon discharge - to improve, our physical therapists will perform initial evaluati on of pt's status upon admission and devise an individualized program for Caregiver Training New precaution - to improve, our physical therapists will perform initial evaluation of pt's status upon admission and devise an individualized program for Patient precaution education Edema - to improve, our physical therapists will perform initial evaluation of pt's status upon admi ssion and devise an individualized program for Elevation Training, and Lymphedema Therapy Poor balance - to improve, our physical therapists will perform initial evaluation of pt's status up on admission and devise an individualized program for Balance Training Poor endurance - to improve, our physical therapists will perform initial evaluation of pt's status upon admission and devise an individualized program for Endurance Training Weakness - to improve, our physical therapists will perform initial evaluation of pt's status upon a dmission and devise an individualized program for Aquatic Therapy, Neuromuscular Reeducation, and Str engthening Achieving independence - to improve, our physical therapists will perform initial evaluation of pt's status upon admission and devise an individualized program for Community Reintegration Activities - Occupational Therapy Need for managed care specialist - to improve, our occupation therapists will perform initial evaluation of pt's status upon admission and devise an individualized program for Caregiver Training Weakness - to improve, our occupation therapists will perform initial evaluation of pt's status upon admission and devise an individualized program for Aquatic Therapy, Balance, Endurance, UE ROM, and UE strengthening - Other See attached MAR (Medication Administration Record) - Diet Type Continue Regular - Diet - Liquid Texture Continue Regular - Tube Feed Continue N/A - Bladder care per protocol - Skin care per protocol - Diet - Solid Texture Continue Regular - Shower allowing shower FUNCTIONAL STATUS: UPDATED AT WEEKLY TEAM CONFERENCE - Bladder Same accident frequency: 7-Ind - No accidents in the past 7 days - Bowel Same accident frequency: 7-Ind - No accidents in the past 7 days - Walking Same score based on distance walked: 0(N/A) - Wheelchair Same score based on distance traveled: 0(N/A) FUNCTIONAL STATUS: - Self-Care A. Eating Tamara B. Grooming Tamara C. Bathing sup D. Dressing - Upper sup E. Dressing - Lower Td F. Toileting sup - Sphincter Control G. Bladder control sup H. Bowel control sup - Transfers Control I. Bed/Chair/Wheelchair sup J. Toilet sup K. Tub/Shower Td - Locomotion L. Walk/Wheelchair (B) Td M. Stairs ADNO - Communication N. Comprehension (B) Tamara O. Expression (B) Tamara - Social Cognition P. Social Interaction Tamara Q. Problem Solving Tamara R. Memory Tamara - Endurance Good - Balance Good - Safety Awareness Good QI SCORES: - Self-Care A. Eating 04-Supervision or touching assistance B. Oral hygiene 03-Partial/moderate assistance C. Toileting hygiene 88-Not attempted due to medical condition or safety concerns E. Shower/bathe self 02-Substantial/maximal assistance F. Upper body dressing 03-Partial/moderate assistance G. Lower body dressing 02-Substantial/maximal assistance H. Putting on/taking off footwear 88-Not attempted due to medical condition or safety concerns - Mobility A. Roll left and right 02-Substantial/maximal assistance B. Sit to lying 02-Substantial/maximal assistance C. Lying to sitting on side of bed 02-Substantial/maximal assistance D. Sit to stand 03-Partial/moderate assistance E. Chair/apr-eb-uuhss transfer 02-Substantial/maximal assistance F. Toilet transfer 88-Not attempted due to medical condition or safety concerns G. Car transfer 88-Not attempted due to medical condition or safety concerns I. Walk 10 feet 88-Not attempted due to medical condition or safety concerns J. Walk 50 feet with two turns 88-Not attempted due to medical condition or safety concerns K. Walk 150 feet 88-Not attempted due to medical condition or safety concerns L. Walking 10 feet on uneven surfaces 88-Not attempted due to medical condition or safety concerns M. 1 step (curb) 88-Not attempted due to medical condition or safety concerns N. 4 steps 88-Not attempted due to medical condition or safety concerns O. 12 steps 88-Not attempted due to medical condition or safety concerns P. Picking up object 88-Not attempted due to medical condition or safety concerns R. Wheel 50 feet with two turns 88-Not attempted due to medical condition or safety concerns S. Wheel 150 feet 88-Not attempted due to medical condition or safety concerns - Bladder and Bowel Bladder continence Bowel continence - Endurance Fair - Balance Fair - Safety Awareness Fair CURRENT [facility]. DEFICITS: Self-Care, Mobility, Endurance, Balance, and Safety Awareness SIGNATURE PANEL: (PHYSICIAN IN PRIVATE PRACTICE)
[2020-06-06] MEDS: EZETIMIBE 10 MG TAB PO SCH (20:14)
[2020-06-06] MEDS: MELATONIN 3 MG TABLET PO PRN (20:15)
[2020-06-06] MEDS: LOSARTAN POTASSIUM 50 MG TABLET PO SCH (20:15)
--- NOTE | 2020-06-07 02:34 | FAST ---
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 Munir Martins M.D. 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 EATING: Not assessed/no information CODE: - ORAL HYGIENE: Not assessed/no information CODE: - TOILETING HYGIENE: TOILETING HYGIENE - STEP 1: Does the patient complete the activity by him/herself with no assistance (physical, verbal/nonverbal cueing, setup/clean-up)? No. TOILETING HYGIENE - STEP 2: Does the patient need only setup/clean-up assistance from one helper? No. TOILETING HYGIENE - STEP 3: Does the patient need only verbal/nonverbal cueing or touching/steadying/contact guard assistance fro m one helper? Yes. 1. [id number] ADMISSION PERFORMANCE: Supervision or touching assistance CODE: 04 BATHING: Not assessed/no information CODE: - DRESSING - UPPER BODY: Not assessed/no information CODE: - DRESSING - LOWER BODY: Not assessed/no information CODE: - PUTTING ON/TAKING OFF FOOTWEAR: Not assessed/no information CODE: - ROLL LEFT AND RIGHT: ROLL LEFT AND RIGHT - STEP 1: Does the patient complete the activity by him/herself with no assistance (physical, verbal/nonverbal cueing, setup/clean-up)? No. ROLL LEFT AND RIGHT - STEP 2: Does the patient need only setup/clean-up assistance from one helper? No. ROLL LEFT AND RIGHT - STEP 3: Does the patient need only verbal/nonverbal cueing or touching/steadying/contact guard assistance fro m one helper? Yes. 1. [id number] ADMISSION PERFORMANCE: Supervision or touching assistance CODE: 04 SIT TO LYING: Not assessed/no information CODE: - LYING TO SITTING: Not assessed/no information CODE: - SIT TO STAND: Not assessed/no information CODE: - TRANSFERS: BED, CHAIR: Not assessed/no information CODE: - TRANSFER TOILET: Not assessed/no information CODE: - TRANSFERS: CAR: Not assessed/no information CODE: - WALK 10 FEET: Not assessed/no information CODE: - 1 STEP (CURB): Not assessed/no information CODE: - PICKING UP OBJECT: Not assessed/no information CODE: - DOES THE PATIENT USE A WHEELCHAIR/SCOOTER? CODE: EXPR WHEEL 50 FEET WITH TWO TURNS: Not assessed/no information CODE: - INDICATE THE TYPE OF WHEELCHAIR/SCOOTER USED: CODE: EXPR WHEEL 150 FEET: Not assessed/no information CODE: - INDICATE THE TYPE OF WHEELCHAIR/SCOOTER USED: CODE: EXPR BLADDER AND BOWEL: H350. BLADDER CONTINENCE (3-DAY ASSESSMENT PERIOD): Always continent (no documented incontinence) CODE: 0 H400. BOWEL CONTINENCE (3-DAY ASSESSMENT PERIOD): Always continent CODE: 0
--- NOTE | 2020-06-07 07:14 | PN ---
Date of Progress Note: 06/06/2020 Subjective: Patient was seen this morning for followup. No new complaints or problems reported by h im. No abdominal pain, nausea, vomiting. Objective: HEENT: Unremarkable. Lungs: Clear to auscultation. Heart: Sounds normal. Abdomen: Soft. Bowel sounds normal. No guarding, rigidity, tenderness, or distention. Extremities: No leg edema. Laboratory Data: Sodium 138, potassium 3.6, chloride 102, bicarb 31, BUN 11, creatinine 0.77, glucos e 128. Liver function tests unremarkable. White count 6.4, hemoglobin 12.6, platelets 351. Impression: 1.Urinary tract infection. 2.Anemia, unspecified. 3.Constipation, well controlled. 4.Hypertension. Plan: We will go ahead and continue current medications. Continue current antihypertensive medicati on and DVT prophylaxis. Continue Levaquin and current stool softener and laxative per order. Physic al therapy to be provided under guidance of Dr. Martins. ALVERTO/MODL Voice ID: [id number] Report ID: [id number]
[2020-06-07] MEDS: INSULIN -REGULAR HUMAN 50 UNIT/0.5 ML ML SQ SCH ×4 (07:30→20:50)
[2020-06-07] MEDS: FAMOTIDINE 20 MG TAB PO SCH (07:35)
[2020-06-07] MEDS: METOPROLOL TAR 50 MG TAB PO SCH ×3 (07:35→20:00)
[2020-06-07] MEDS: ENOXAPARIN 30 MG/0.3 ML SQ SCH (07:35)
[2020-06-07] MEDS: levoFLOXacin 500 MG TAB PO SCH (07:35)
[2020-06-07] MEDS: GABAPENTIN 300 MG CAP PO SCH ×2 (07:35→20:49)
[2020-06-07] MEDS: METFORMIN ER 500 MG TAB PO SCH (07:35)
[2020-06-07] MEDS: AMLODIPINE 5 MG TAB PO SCH ×2 (07:35→20:00)
[2020-06-07] MEDS: CLOPIDOGREL 75 MG TABLET PO SCH (07:36)
[2020-06-07] MEDS: DOCUSATE NA/SENNA CONC 1 TAB PO SCH ×2 (07:36→20:47)
[2020-06-07] MEDS: methocarbamoL 750 MG TAB PO SCH ×3 (07:36→20:46)
[2020-06-07] MEDS: ASPIRIN EC 81 MG TAB PO SCH (07:36)
[2020-06-07] MEDS: HYDROCODONE/APAP 10/325 TAB PO PRN ×4 (07:36→20:45)
[2020-06-07] MEDS: LIDOCAINE 4% PATCH TOP SCH (07:37)
[2020-06-07] MEDS: POLYETHYL GLY 3350 17 GM/DOSE PO SCH ×2 (08:00→20:00)
[2020-06-07] MEDS: TAMSULOSIN 0.4 MG SR CAP PO SCH (16:19)
--- NOTE | 2020-06-07 16:38 | FAST ---
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 Munir Martins M.D. 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 EATING: EATING - STEP 1: Does the patient complete the activity by him/herself with no assistance (physical, verbal/nonverbal cueing, setup/clean-up)? No. EATING - STEP 2: Does the patient need only setup/clean-up assistance from one helper? Yes. 1. [id number] ADMISSION PERFORMANCE: Setup or clean-up assistance CODE: 05 ORAL HYGIENE: ORAL HYGIENE - STEP 1: Does the patient complete the activity by him/herself with no assistance (physical, verbal/nonverbal cueing, setup/clean-up)? No. ORAL HYGIENE - STEP 2: Does the patient need only setup/clean-up assistance from one helper? Yes. 1. [id number] ADMISSION PERFORMANCE: Setup or clean-up assistance CODE: 05 TOILETING HYGIENE: TOILETING HYGIENE - STEP 1: Does the patient complete the activity by him/herself with no assistance (physical, verbal/nonverbal cueing, setup/clean-up)? No. TOILETING HYGIENE - STEP 2: Does the patient need only setup/clean-up assistance from one helper? Yes. 1. [id number] ADMISSION PERFORMANCE: Setup or clean-up assistance CODE: 05 BATHING: Not assessed/no information CODE: - DRESSING - UPPER BODY: DRESSING - UPPER BODY - STEP 1: Does the patient complete the activity by him/herself with no assistance (physical, verbal/nonverbal cueing, setup/clean-up)? No. DRESSING - UPPER BODY - STEP 2: Does the patient need only setup/clean-up assistance from one helper? No. DRESSING - UPPER BODY - STEP 3: Does the patient need only verbal/nonverbal cueing or touching/steadying/contact guard assistance fro m one helper? Yes. 1. [id number] ADMISSION PERFORMANCE: Supervision or touching assistance CODE: 04 DRESSING - LOWER BODY: DRESSING - LOWER BODY - STEP 1: Does the patient complete the activity by him/herself with no assistance (physical, verbal/nonverbal cueing, setup/clean-up)? No. DRESSING - LOWER BODY - STEP 2: Does the patient need only setup/clean-up assistance from one helper? No. DRESSING - LOWER BODY - STEP 3: Does the patient need only verbal/nonverbal cueing or touching/steadying/contact guard assistance fro m one helper? Yes. 1. [id number] ADMISSION PERFORMANCE: Supervision or touching assistance CODE: 04 PUTTING ON/TAKING OFF FOOTWEAR: FOOTWEAR - STEP 1: Does the patient complete the activity by him/herself with no assistance (physical, verbal/nonverbal cueing, setup/clean-up)? No. FOOTWEAR - STEP 2: Does the patient need only setup/clean-up assistance from one helper? No. FOOTWEAR - STEP 3: Does the patient need only verbal/nonverbal cueing or touching/steadying/contact guard assistance fro m one helper? Yes. 1. [id number] ADMISSION PERFORMANCE: Supervision or touching assistance CODE: 04 ROLL LEFT AND RIGHT: ROLL LEFT AND RIGHT - STEP 1: Does the patient complete the activity by him/herself with no assistance (physical, verbal/nonverbal cueing, setup/clean-up)? No. ROLL LEFT AND RIGHT - STEP 2: Does the patient need only setup/clean-up assistance from one helper? No. ROLL LEFT AND RIGHT - STEP 3: Does the patient need only verbal/nonverbal cueing or touching/steadying/contact guard assistance fro m one helper? Yes. 1. [id number] ADMISSION PERFORMANCE: Supervision or touching assistance CODE: 04 SIT TO LYING: SIT TO LYING - STEP 1: Does the patient complete the activity by him/herself with no assistance (physical, verbal/nonverbal cueing, setup/clean-up)? No. SIT TO LYING - STEP 2: Does the patient need only setup/clean-up assistance from one helper? Yes. 1. [id number] ADMISSION PERFORMANCE: Setup or clean-up assistance CODE: 05 LYING TO SITTING: LYING TO SITTING ON SIDE OF BED - STEP 1: Does the patient complete the activity by him/herself with no assistance (physical, verbal/nonverbal cueing, setup/clean-up)? No. LYING TO SITTING ON SIDE OF BED - STEP 2: Does the patient need only setup/clean-up assistance from one helper? No. LYING TO SITTING ON SIDE OF BED - STEP 3: Does the patient need only verbal/nonverbal cueing or touching/steadying/contact guard assistance fro m one helper? Yes. 1. [id number] ADMISSION PERFORMANCE: Supervision or touching assistance CODE: 04 SIT TO STAND: SIT TO STAND - STEP 1: Does the patient complete the activity by him/herself with no assistance (physical, verbal/nonverbal cueing, setup/clean-up)? No. SIT TO STAND - STEP 2: Does the patient need only setup/clean-up assistance from one helper? No. SIT TO STAND - STEP 3: Does the patient need only verbal/nonverbal cueing or touching/steadying/contact guard assistance fro m one helper? Yes. 1. [id number] ADMISSION PERFORMANCE: Supervision or touching assistance CODE: 04 TRANSFERS: BED, CHAIR: CHAIR/[id number] TRANSFER - STEP 1: Does the patient complete the activity by him/herself with no assistance (physical, verbal/nonverbal cueing, setup/clean-up)? No. CHAIR/[id number] TRANSFER - STEP 2: Does the patient need only setup/clean-up assistance from one helper? No. CHAIR/[id number] TRANSFER - STEP 3: Does the patient need only verbal/nonverbal cueing or touching/steadying/contact guard assistance fro m one helper? Yes. 1. [id number] ADMISSION PERFORMANCE: Supervision or touching assistance CODE: 04 TRANSFER TOILET: TOILET TRANSFER - STEP 1: Does the patient complete the activity by him/herself with no assistance (physical, verbal/nonverbal cueing, setup/clean-up)? No. TOILET TRANSFER - STEP 2: Does the patient need only setup/clean-up assistance from one helper? No. TOILET TRANSFER - STEP 3: Does the patient need only verbal/nonverbal cueing or touching/steadying/contact guard assistance fro m one helper? Yes. 1. [id number] ADMISSION PERFORMANCE: Supervision or touching assistance CODE: 04 TRANSFERS: CAR: Not assessed/no information CODE: - WALK 10 FEET: Not assessed/no information CODE: - 1 STEP (CURB): Not assessed/no information CODE: - PICKING UP OBJECT: Not assessed/no information CODE: - DOES THE PATIENT USE A WHEELCHAIR/SCOOTER? Q1. DOES THE PATIENT USE A WHEELCHAIR/SCOOTER?: Yes CODE: 1 WHEEL 50 FEET WITH TWO TURNS: WHEEL 50 FEET WITH TWO TURNS - STEP 1: Does the patient complete the activity by him/herself with no assistance (physical, verbal/nonverbal cueing, setup/clean-up)? No. WHEEL 50 FEET WITH TWO TURNS - STEP 2: Does the patient need only setup/clean-up assistance from one helper? No. WHEEL 50 FEET WITH TWO TURNS - STEP 3: Does the patient need only verbal/nonverbal cueing or touching/steadying/contact guard assistance fro m one helper? Yes. 1. [id number] ADMISSION PERFORMANCE: Supervision or touching assistance CODE: 04 INDICATE THE TYPE OF WHEELCHAIR/SCOOTER USED: RR1. INDICATE THE TYPE OF WHEELCHAIR/SCOOTER USED.: Manual CODE: 1 WHEEL 150 FEET: WHEEL 150 FEET - STEP 1: Does the patient complete the activity by him/herself with no assistance (physical, verbal/nonverbal cueing, setup/clean-up)? No. WHEEL 150 FEET - STEP 2: Does the patient need only setup/clean-up assistance from one helper? No. WHEEL 150 FEET - STEP 3: Does the patient need only verbal/nonverbal cueing or touching/steadying/contact guard assistance fro m one helper? Yes. 1. [id number] ADMISSION PERFORMANCE: Supervision or touching assistance CODE: 04 INDICATE THE TYPE OF WHEELCHAIR/SCOOTER USED: SS1. INDICATE THE TYPE OF WHEELCHAIR/SCOOTER USED.: Manual CODE: 1 BLADDER AND BOWEL: H350. BLADDER CONTINENCE (3-DAY ASSESSMENT PERIOD): Always continent (no documented incontinence) CODE: 0 H400. BOWEL CONTINENCE (3-DAY ASSESSMENT PERIOD): Always continent CODE: 0 SIGNATURE PANEL: The following modified sections: 1. [id number] Admission Performance, 1. [id number] Admission Performance, 1. [id number] Admission Performance, 1. [id number] Admission Performance, 1. [id number] Admission Performance, 1. [id number] Admission Performance, 1. [id number] Admission Performance, 1. [id number] Admission Performance , 1. [id number] Admission Performance, 1. [id number] Admission Performance, 1. [id number] Admission Performanc e, 1. [id number] Admission Performance, 1. [id number] Admission Performance, Q1. Does the patient use a whe elchair/scooter?, 1. [id number] Admission Performance, RR1. Indicate the type of wheelchair/scooter used ., 1. [id number] Admission Performance, Code, SS1. Indicate the type of wheelchair/scooter used., H350. Bladder Continence (3-day assessment period), H400. Bowel Continence (3-day assessment period) were [ electronically] signed by Kindra JimenezNMarco Antonio on SatJun 07 2020 16:36:58 GMT-0600 (Central Standard Time)
[2020-06-07] MEDS: EZETIMIBE 10 MG TAB PO SCH (20:48)
[2020-06-07] MEDS: LOSARTAN POTASSIUM 50 MG TABLET PO SCH (20:49)
[2020-06-08] MEDS: HYDROCODONE/APAP 10/325 TAB PO PRN ×5 (02:05→23:25)
--- NOTE | 2020-06-08 07:21 | PN ---
Date of Progress Note: 06/07/2020 Subjective: The patient was seen for followup in the morning. No new complaints or problems reporte d by patient. Objective: General: Lying in bed, not in distress. Vital Signs: Reviewed. HEENT: Unremarkable. Lungs: Clear to auscultation. Heart: Sounds normal. Abdomen: Soft. Bowel sounds normal. No guarding, rigidity, tenderness, or distention. Extremities: No leg edema. Impression: 1.Fracture, L1 spine. 2.Constipation. 3.Hypertension. 4.Coronary artery disease. 5.Urinary tract infection. Plan: We will continue current antibiotic. Continue current antihypertensive medication, but after reviewing the last couple of days of vital signs, his morning blood pressure reading is still elevate d and his heart rate is around 90-95 range, so what we will do is increase the dose of metoprolol fro m 50 mg 2 times a day to 100 mg 2 times a day, and we will continue other current antihypertensive me dication. Continue Lovenox and Levaquin per order. ALVERTO/MODL Voice ID: [id number] Report ID: [id number]
[2020-06-08] MEDS: ENOXAPARIN 30 MG/0.3 ML SQ SCH (07:23)
[2020-06-08] MEDS: INSULIN -REGULAR HUMAN 50 UNIT/0.5 ML ML SQ SCH ×4 (07:30→20:16)
[2020-06-08] MEDS: METOPROLOL TAR 50 MG TAB PO SCH ×2 (08:18→20:00)
[2020-06-08] MEDS: FAMOTIDINE 20 MG TAB PO SCH (08:18)
[2020-06-08] MEDS: POLYETHYL GLY 3350 17 GM/DOSE PO SCH ×2 (08:18→20:00)
[2020-06-08] MEDS: DOCUSATE NA/SENNA CONC 1 TAB PO SCH ×2 (08:19→20:13)
[2020-06-08] MEDS: CLOPIDOGREL 75 MG TABLET PO SCH (08:19)
[2020-06-08] MEDS: METFORMIN ER 500 MG TAB PO SCH (08:19)
[2020-06-08] MEDS: methocarbamoL 750 MG TAB PO SCH ×3 (08:19→20:13)
[2020-06-08] MEDS: AMLODIPINE 5 MG TAB PO SCH ×2 (08:19→20:00)
[2020-06-08] MEDS: ASPIRIN EC 81 MG TAB PO SCH (08:20)
[2020-06-08] MEDS: GABAPENTIN 300 MG CAP PO SCH ×2 (08:20→20:13)
[2020-06-08] MEDS: levoFLOXacin 500 MG TAB PO SCH (08:20)
[2020-06-08] MEDS: LIDOCAINE 4% PATCH TOP SCH (11:08)
[2020-06-08] MEDS: TAMSULOSIN 0.4 MG SR CAP PO SCH (16:41)
--- NOTE | 2020-06-08 17:43 | R.PN ---
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 Pt denied any depression. WBC 6.4, neutrophils 59.5, glucose 96 to 125, prealbumin 17.5. BMP is normal. UA shows contamination. Self-propelled wheelchair 250' with independence. Ambulated 1000' with independence using a rolling walker. Up and down 12 steps with standby assistanc e. VITAL SIGNS SBP/DBP: 153/77 Temperature: 97.2 F Pulse: 83 Resp: 16 MEDICATION ALLERGIES: No Known Drug Allergies (NKDA) ENVIRONMENTAL ALLERGIES: - Substance Allergies None Known - Other Allergies None Known NURSING: - Shower allowing shower - Bladder care per protocol - Skin care per protocol ACTIVITIES OOB only with supervision THERAPIES: - Orthotics/Prosthetics Orthotic Evaluation. Splinting/Casting. - Dietary and Nutrition Adequate Nutrition. Nutritional Education. Nutritional Supplements. PHYSICAL EXAM - Gen Alert and awake Lying in bed No apparent distress Oriented to: person, time, and place - Skin No skin breakdown. Normacephalic - Eyes No abnormalities - ENMT No abnormalities - Neck No abnormalities - CVS RRR - Chest No abnormalities - Resp No wheezing - Abd + bowel sounds - GI Soft Deferred - No abnormalities - Ext No significant edema. - MSK 4/5 weakness in both lower extremities. - Neuro No focal deficits - Psych Mild anxiety. ASSESSMENT: Pt. 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 was independent/mod-I in Safety Awareness, Transfers Control, Endurance, and Sphincter Control; and he had good Locomotion and Self-Care.Currsharon tloctaviano, he has deficits of Balance, Transfers Control, Sphincter Control, Endurance, and Locomotion.Pt. is now referred to [facility] for acute in-patient rehabilitation in order to maximize patient's functional independence in activities of daily living, strength, ROM, and mobility .- Rehab Goal Patient has realistic goal of being discharged at assistance level 7-Ind to reside at Home with Fami ly/Relatives. MDM/PLAN: - Physical Therapy Gait dysfunction - to improve, our physical therapists will perform initial evaluation of pt's statu s upon admission and devise an individualized program for Gait Training, and Wheel Chair mobility Inability to transfer - to improve, our physical therapists will perform initial evaluation of pt's status upon admission and devise an individualized program for Bed mobility Need for home safety evaluation - to improve, our physical therapists will perform initial evaluatio n of pt's status upon admission and devise an individualized program for Home Evaluation Need in caregiver upon discharge - to improve, our physical therapists will perform initial evaluati on of pt's status upon admission and devise an individualized program for Caregiver Training New precaution - to improve, our physical therapists will perform initial evaluation of pt's status upon admission and devise an individualized program for Patient precaution education Edema - to improve, our physical therapists will perform initial evaluation of pt's status upon admi ssion and devise an individualized program for Elevation Training, and Lymphedema Therapy Poor balance - to improve, our physical therapists will perform initial evaluation of pt's status up on admission and devise an individualized program for Balance Training Poor endurance - to improve, our physical therapists will perform initial evaluation of pt's status upon admission and devise an individualized program for Endurance Training Weakness - to improve, our physical therapists will perform initial evaluation of pt's status upon a dmission and devise an individualized program for Aquatic Therapy, Neuromuscular Reeducation, and Str engthening Achieving independence - to improve, our physical therapists will perform initial evaluation of pt's status upon admission and devise an individualized program for Community Reintegration Activities - Occupational Therapy Need for intensive care ambulance paramedic - to improve, our occupation therapists will perform initial evaluation of pt's status upon admission and devise an individualized program for Caregiver Training Weakness - to improve, our occupation therapists will perform initial evaluation of pt's status upon admission and devise an individualized program for Aquatic Therapy, Balance, Endurance, UE ROM, and UE strengthening - Other See attached MAR (Medication Administration Record) - Diet Type Continue Regular - Diet - Liquid Texture Continue Regular - Tube Feed Continue N/A - Bladder care per protocol - Skin care per protocol - Diet - Solid Texture Continue Regular - Shower allowing shower FUNCTIONAL STATUS: UPDATED AT WEEKLY TEAM CONFERENCE - Bladder Same accident frequency: 7-Ind - No accidents in the past 7 days - Bowel Same accident frequency: 7-Ind - No accidents in the past 7 days - Walking Same score based on distance walked: 0(N/A) - Wheelchair Same score based on distance traveled: 0(N/A) FUNCTIONAL STATUS: - Self-Care A. Eating Tamara B. Grooming Tamara C. Bathing sup D. Dressing - Upper sup E. Dressing - Lower Td F. Toileting sup - Sphincter Control G. Bladder control sup H. Bowel control sup - Transfers Control I. Bed/Chair/Wheelchair sup J. Toilet sup K. Tub/Shower Td - Locomotion L. Walk/Wheelchair (B) Td M. Stairs ADNO - Communication N. Comprehension (B) Tamara O. Expression (B) Tamara - Social Cognition P. Social Interaction Tamara Q. Problem Solving Tamara R. Memory Tamara - Endurance Good - Balance Good - Safety Awareness Good QI SCORES: - Self-Care A. Eating 04-Supervision or touching assistance B. Oral hygiene 03-Partial/moderate assistance C. Toileting hygiene 88-Not attempted due to medical condition or safety concerns E. Shower/bathe self 02-Substantial/maximal assistance F. Upper body dressing 03-Partial/moderate assistance G. Lower body dressing 02-Substantial/maximal assistance H. Putting on/taking off footwear 88-Not attempted due to medical condition or safety concerns - Mobility A. Roll left and right 02-Substantial/maximal assistance B. Sit to lying 02-Substantial/maximal assistance C. Lying to sitting on side of bed 02-Substantial/maximal assistance D. Sit to stand 03-Partial/moderate assistance E. Chair/mad-en-bgpex transfer 02-Substantial/maximal assistance F. Toilet transfer 88-Not attempted due to medical condition or safety concerns G. Car transfer 88-Not attempted due to medical condition or safety concerns I. Walk 10 feet 88-Not attempted due to medical condition or safety concerns J. Walk 50 feet with two turns 88-Not attempted due to medical condition or safety concerns K. Walk 150 feet 88-Not attempted due to medical condition or safety concerns L. Walking 10 feet on uneven surfaces 88-Not attempted due to medical condition or safety concerns M. 1 step (curb) 88-Not attempted due to medical condition or safety concerns N. 4 steps 88-Not attempted due to medical condition or safety concerns O. 12 steps 88-Not attempted due to medical condition or safety concerns P. Picking up object 88-Not attempted due to medical condition or safety concerns R. Wheel 50 feet with two turns 88-Not attempted due to medical condition or safety concerns S. Wheel 150 feet 88-Not attempted due to medical condition or safety concerns - Bladder and Bowel Bladder continence Bowel continence - Endurance Fair - Balance Fair - Safety Awareness Fair CURRENT [facility]. 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
[2020-06-08] MEDS: EZETIMIBE 10 MG TAB PO SCH (20:13)
[2020-06-08] MEDS: MELATONIN 3 MG TABLET PO PRN (20:14)
[2020-06-08] MEDS: LOSARTAN POTASSIUM 50 MG TABLET PO SCH (20:16)
--- NOTE | 2020-06-08 21:09 | PN ---
Date of Progress Note: 06/08/2020 Subjective: The patient was seen this morning for followup. No new complaints or problems reported by the patient, lying in bed, not in any distress. Constipation is well controlled and has 1 or 2 bowel movements almost on a daily basis now. No abdominal pain, nausea, or vomiting. Objective: Vital Signs: Reviewed. HEENT: Unremarkable Lungs: Clear to auscultation. Heart: Heart sounds normal. Abdomen: Soft. Bowel sounds normal. No guarding, rigidity, tenderness, or distention. Extremities: No leg edema. Impression: 1. Hypertension. 2. Coronary artery disease. 3. Traumatic fracture, L1 spine. 4. Constipation. Plan: Continue current medications. Continue current antibiotic for urinary tract infection. Plan is to discharge him to go home tomorrow. Medically, he is stable and he does not need to continue antibiotic upon discharge as he has taken adequate number of days of antibiotic during his hospital stay. Continue current antihypertensive medications and Lovenox for DVT prophylaxis. ALVERTO/MODL Voice ID: [id number] Report ID: [id number] YASMIN
[2020-06-09] MEDS: HYDROCODONE/APAP 10/325 TAB PO PRN ×3 (06:41→14:18)
[2020-06-09 06:47] LABS: Absolute Lymphocytes (CBC) 1.3 K/uL (0.7-4.9); Basophils % 1.1 % (0-1.3); Hematocrit 36.5 % (39.6-49.0); Lymphocytes % 22.9 % (15.3-44.8); MPV 7.6 fL (7.6-11.3); RBC Red Blood Cell Count 4.17 M/uL (4.33-5.43)
[2020-06-09 07:00] LABS: Albumin 3.1 g/dL (3.4-5.0); Magnesium 2.1 mg/dL (1.8-2.4); Potassium 3.2 mmol/L (3.5-5.1); Prealbumin 21.5 mg/dL (20-40)
[2020-06-09 07:25] VITALS: BP 160/81; TEMP 97.6
[2020-06-09] MEDS: INSULIN -REGULAR HUMAN 50 UNIT/0.5 ML ML SQ SCH ×2 (07:30→11:30)
[2020-06-09] MEDS: LIDOCAINE 4% PATCH TOP SCH ×2 (08:00→08:49)
[2020-06-09] MEDS: AMLODIPINE 5 MG TAB PO SCH (08:49)
[2020-06-09] MEDS: POLYETHYL GLY 3350 17 GM/DOSE PO SCH (08:49)
[2020-06-09] MEDS: ASPIRIN EC 81 MG TAB PO SCH (08:49)
[2020-06-09] MEDS: METOPROLOL TAR 50 MG TAB PO SCH (08:49)
[2020-06-09] MEDS: FAMOTIDINE 20 MG TAB PO SCH (08:50)
[2020-06-09] MEDS: methocarbamoL 750 MG TAB PO SCH (08:50)
[2020-06-09] MEDS: ENOXAPARIN 30 MG/0.3 ML SQ SCH (08:50)
[2020-06-09] MEDS: METFORMIN ER 500 MG TAB PO SCH (08:51)
[2020-06-09] MEDS: CLOPIDOGREL 75 MG TABLET PO SCH (08:51)
[2020-06-09] MEDS: DOCUSATE NA/SENNA CONC 1 TAB PO SCH (08:51)
[2020-06-09] MEDS: levoFLOXacin 500 MG TAB PO SCH (08:51)
[2020-06-09] MEDS: GABAPENTIN 300 MG CAP PO SCH (08:52)
[2020-06-09] MEDS ORDERED: POTASSIUM CL SA 10 MEQ TAB PO ONE (09:30)
--- NOTE | 2020-06-10 00:55 | DS ---
Date of Discharge: 06/09/2020 Disposition: Discharged to go home. Physical Examination: HEENT: Unremarkable. Lungs: Clear to auscultation. Heart: Sounds normal. Abdomen: Soft. Bowel sounds normal. No guarding, rigidity, tenderness, or distention. Extremities: No leg edema. BACK: Has a presence of surgical scar with normal-appearing skin around it. No evidence of any redness. No swelling. No rash. Extremities: No leg edema. Laboratory Data: Last labs this morning: White count 5.9, hemoglobin 12.5, platelets 280. Chemistry from today: Sodium 138, potassium 3.2, chloride 103, bicarb 27. BUN 11, creatinine 0.91, glucose 113, magnesium 2.1, albumin level 3.1. Hospital Course: This is a 74-year-old pleasant male patient admitted to the hospital after he fell down at home and presented to emergency room with back pain. Further evaluation revealed presence of acute traumatic spine fracture and patient was transferred to [place] to [facility] where he had surgery done and subsequently was brought to rehab floor for inpatient rehab therapy and was admitted on 05/24/2020, to rehab floor. Please see dictated H and P for more information. 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 His initial sodium was around 129 and we gave him sodium chloride tablets and placed him on fluid restriction and as his sodium normalized, we discontinued fluid restriction and discontinue his sodium chloride tablets and we continued to monitor his sodium level and has remained within normal range. He has a low potassium, which was corrected during this hospitalization. Urine culture grew Pseudomonas as well as Enterococcus. According to sensitivity result of Levaquin, he has tolerated that very well. He did have some skin irritation on the back, which was treated by placing some skin protective pads that actually has resolved his skin irritation problem. His blood pressure continued to remain problem during this hospitalization and we did have to make some adjustment on antihypertensive medication. He received Lovenox for DVT prophylaxis. Physical therapy was given under guidance of Dr. Martins and today, he was determined stable for discharge from physical therapy point of view. Medically, he is stable for discharge. He was started on metformin for type 2 diabetes mellitus and has tolerated that very well. Discharge Diagnoses: 1. Fracture of L1 spine, status post surgery. 2. Hyponatremia. 3. Hypokalemia. 4. Type 2 diabetes mellitus. 5. Coronary artery disease. 6. Hypertension. 7. Hyperlipidemia. 8. Benign prostatic hypertrophy with lower urinary symptoms. 9. Urinary tract infection. Discharge Medications: 1. Continue all prior home medications, except change in metoprolol 50 mg, patient to take 2 tablets by mouth 2 times a day. 2. Start taking new medication as below: Senokot-S 2 tablets by mouth 2 times a day, MiraLAX 17 g powder mixed with 8 ounce water and drink it daily as needed for constipation. 3. Lidocaine patch 4% apply to lower back every morning, take it off at bedtime. 4. Follow up at my office next week. 5. Metformin 500 mg p.o. daily. 6. Atorvastatin 20 mg daily at bedtime. 7. Tamsulosin 0.4 mg p.o. daily. 8. Methocarbamol 500 mg p.o. 3 times a day. 9. Gabapentin 300 mg. ALVERTO/MODL Voice ID: [id number] Report ID: [id number] MTDD
--- NOTE | 2020-07-22 16:56 | R.DS ---
DISCHARGE SUMMARY FACILITY [facility] MR# [id number] NAME CHARLIE KENDALL ADDRESS [address] [place] [address] [address] [id number] PHONE DATE OF 1945 AGE 74 SSN# [id number] GENDER Male DEXTERITY Right-handed MARITAL STATUS RACE Unknown race ENCOUNTER PHYSICIAN Dr. Munir Martins M.D. 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 NURSING: - Shower allowing shower - Bladder care per protocol - Skin care per protocol ACTIVITIES OOB only with supervision THERAPIES: - Orthotics/Prosthetics Orthotic Evaluation Splinting/Casting - Dietary and Nutrition Adequate Nutrition Nutritional Education Nutritional Supplements HISTORY OF PRESENT ILLNESS: Pt. is a 74 yo Right-handed male of unknown race.On 05/16/2020 he was admitted to [facility] wi th diagnosis T12 VERTEBRAL FRACTURE.His impairment category is Spinal Cord Dysfunction 04 - Other Tr aumatic Spinal Cord Dysfunction (230).Pre-morbidly, Pt. was independent/mod-I in Safety Awareness, Transfers Control, Endurance, and Sphincter Control; and he had good Locomotion and Self-Care.Curren tly, he has deficits of Balance, Transfers Control, Sphincter Control, Endurance, and Locomotion.Pt. is now referred to [facility] for acute in-patient rehabilitation in order to maximize patient's functional independence in activities of daily living, strength, ROM, and mobility .- Rehab Goal Patient has realistic goal of being discharged at assistance level 7-Ind to reside at Home with Fami ly/Relatives. DIET - LIQUID TEXTURE: On 05/23/2020 Pt was upgraded to Regular Diet - Liquid Texture. DIET - SOLID TEXTURE: On 05/23/2020 Pt was upgraded to Regular Diet - Solid Texture. DIET TYPE: On 05/23/2020 Pt was upgraded to Regular Diet Type. TUBE FEED: On 05/23/2020 Pt was changed to N/A Tube Feed. DISCHARGE PHYSICAL EXAM - Gen Alert and awake Lying in bed No apparent distress Oriented to: person, time, and place - Skin No skin breakdown. Normacephalic - Eyes No abnormalities - ENMT No abnormalities - Neck No abnormalities - CVS RRR - Chest No abnormalities - Resp No wheezing - Abd + bowel sounds - GI Soft Deferred - No abnormalities - Ext No significant edema. - MSK 4/5 weakness in both lower extremities. - Neuro No focal deficits - Psych Mild anxiety. FUNCTIONAL STATUS: - Self-Care A. Eating 6-Tamara B. Grooming 6-Tamara C. Bathing 6-Tamara D. Dressing - Upper 6-Tamara E. Dressing - Lower 6-Tamara F. Toileting 6-Tamara - Sphincter Control G. Bladder control 6-Tamara H. Bowel control 6-Tamara - Transfers Control I. Bed/Chair/Wheelchair 6-Tamara J. Toilet 6-Tamara K. Tub/Shower 6-Tamara - Locomotion L. Walk/Wheelchair (B) 7-Ind M. Stairs 7-Ind - Communication N. Comprehension (B) 6-Tamara O. Expression (B) 6-Tamara - Social Cognition P. Social Interaction 6-Tamara Q. Problem Solving 6-Tamara R. Memory 6-Tamara - Endurance Good - Balance Good - Safety Awareness Good QI SCORES: - Self-Care A. Eating 04-Supervision or touching assistance B. Oral hygiene 03-Partial/moderate assistance C. Toileting hygiene 88-Not attempted due to medical condition or safety concerns E. Shower/bathe self 02-Substantial/maximal assistance F. Upper body dressing 03-Partial/moderate assistance G. Lower body dressing 02-Substantial/maximal assistance H. Putting on/taking off footwear 88-Not attempted due to medical condition or safety concerns - Mobility A. Roll left and right 02-Substantial/maximal assistance B. Sit to lying 02-Substantial/maximal assistance C. Lying to sitting on side of bed 02-Substantial/maximal assistance D. Sit to stand 03-Partial/moderate assistance E. Chair/isc-pc-hmdwr transfer 02-Substantial/maximal assistance F. Toilet transfer 88-Not attempted due to medical condition or safety concerns G. Car transfer 88-Not attempted due to medical condition or safety concerns I. Walk 10 feet 88-Not attempted due to medical condition or safety concerns J. Walk 50 feet with two turns 88-Not attempted due to medical condition or safety concerns K. Walk 150 feet 88-Not attempted due to medical condition or safety concerns L. Walking 10 feet on uneven surfaces 88-Not attempted due to medical condition or safety concerns M. 1 step (curb) 88-Not attempted due to medical condition or safety concerns N. 4 steps 88-Not attempted due to medical condition or safety concerns O. 12 steps 88-Not attempted due to medical condition or safety concerns P. Picking up object 88-Not attempted due to medical condition or safety concerns R. Wheel 50 feet with two turns 88-Not attempted due to medical condition or safety concerns S. Wheel 150 feet 88-Not attempted due to medical condition or safety concerns - Bladder and Bowel Bladder continence Bowel continence - Endurance Fair - Balance Fair - Safety Awareness Fair DISCHARGE INSTRUCTIONS: - N/A Aspirin 81 mg, Plavix 75 mg, Lovenox 30 mg sq daily. DISCHARGE PLAN, FOLLOW UP CARE PROVISIONS: - Estimated Length of Stay (days) 27. - Consensus on plan Discharge plan has been discussed with primary caregiver. Patient/Family is in agreement with the sam n. Primary caregiver is in agreement with the plan. - Patient/Family Goals Return home independently. - Planned Living Setting Upon Discharge Home, to live with Family/Relatives. Transitional Living. 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
== END 2020-06-09 14:32 | disposition home or self-care (01) | DRG 560 ==
LOC: 5TH 15:21
PROVIDERS: ADMIT Internal Medicine; ATTEND Internal Medicine
DX: S22.089D Unspecified fracture of T11-T12 vertebra, subsequent encounter for fracture with routine healing (principal); E22.2 Syndrome of inappropriate secretion of antidiuretic hormone; N39.0 Urinary tract infection, site not specified; I10 Essential (primary) hypertension; E78.5 Hyperlipidemia, unspecified; N40.1 Benign prostatic hyperplasia with lower urinary tract symptoms; E11.9 Type 2 diabetes mellitus without complications; K21.9 Gastro-esophageal reflux disease without esophagitis; D72.829 Elevated white blood cell count, unspecified; D64.9 Anemia, unspecified; I25.10 Atherosclerotic heart disease of native coronary artery without angina pectoris; K59.00 Constipation, unspecified; E87.6 Hypokalemia; B96.5 Pseudomonas (aeruginosa) (mallei) (pseudomallei) as the cause of diseases classified elsewhere; B95.2 Enterococcus as the cause of diseases classified elsewhere; Z88.8 Allergy status to other drugs, medicaments and biological substances; Z79.82 Long term (current) use of aspirin; Z79.02 Long term (current) use of antithrombotics/antiplatelets; Z79.899 Other long term (current) drug therapy; Z95.5 Presence of coronary angioplasty implant and graft; Z87.891 Personal history of nicotine dependence; Z20.828 Contact with and (suspected) exposure to other viral communicable diseases
CPT/HCPCS: 36415; 71045; 80048; 80053; 81001; 82040; 82947; 83036; 83735; 84134; 85025; 87077; 87086; 87088; 87186; 97110; 97112; 97116; 97161; 97530; 97542; J1650; U0002; U0003

== ENCOUNTER 2023-11-01 11:53 | Emergency (ER) | payer OTHER ==
[2023-11-01] MEDS ORDERED: MORPHINE 2 MG/ML SYR ONE ×2 (12:49→13:46)
--- NOTE | 2023-11-01 12:52 | RAD REPORT ---
EXAM DESCRIPTION: RAD - Ankle Left 3 View -11/01/2023 12:41 pm CLINICAL HISTORY: Left ankle pain status post injury FINDINGS: Oblique moderately to markedly displaced fracture distal fibula with angulation present at fracture site. Lateral dislocation of the talus
--- NOTE | 2023-11-01 15:02 | ER ---
Nurse's Notes [facility] Name: Antonio Kam Age: 77 yrs Sex: Male : 1945 Arrival Date: 11/01/2023 Time: 11:53 Bed 7 Private MD: Diagnosis: Nondisplaced fracture of lateral malleolus of left fibula;Avulsion fracture (chip fracture) of talus-Talar fracture per xray Presentation: 10/31 11:55 Chief complaint: EMS states: Mechanical fall. Fell when getting out of vehicle. Left nj1 ankle injury. Given fentanyl for pain. 11:55 Coronavirus screen: Vaccine status: Patient reports receiving the 2nd dose of the covid ok1 vaccine. Ebola Screen: Patient denies travel to an Ebola-affected area in the 21 days before illness onset. Initial Sepsis Screen: Does the patient meet any 2 criteria? No. Patient's initial sepsis screen is negative. Does the patient have a suspected source of infection? No. Patient's initial sepsis screen is negative. Risk Assessment: Do you want to hurt yourself or someone else? Patient reports no desire to harm self or others. Onset of symptoms was November 01, 2023. 11:55 Method Of Arrival: EMS: [facility] 11:55 Acuity: [facility] 3 [facility] 11:55 Care prior to arrival: Medication(s) given: 100 mcg fentanyl IV initiated. 22 GA, in [facility] the right antecubital area. Historical: - Allergies: 12:05 unknown diuretic; nj1 - PMHx: 12:05 Diabetes Type 2 diet controlled; Hypertension; BPH (Unknown); Back pain, chronic nj (Unknown); - Immunization history:: Client reports receiving the 2nd dose of the Covid vaccine. - Infectious Disease History:: Denies. - Social history:: Smoking status: Patient denies any tobacco usage or history of. Screenin:10 [facility] ED Fall Risk Assessment (Adult) History of falling in the last 3 months, [facility] including since admission Yes- single mechanical fall (1 pt) Confusion or Disorientation No (0 pts) Intoxicated or Sedated No (0 pts) Impaired Gait Yes (1 pt) Mobility Assist Device Used No (0 pt) Altered Elimination No (0 pt) Score/Fall Risk Level 0 - 2 = Low Risk Oriented to surroundings, Maintained a safe environment, Hourly rounding (assess needs \T\ fall precautionary measures) done. Abuse screen: Denies threats or abuse. Denies injuries from another. Nutritional screening: No deficits noted. Tuberculosis screening: No symptoms or risk factors identified. Assessment: 12:00 General: Appears in no apparent distress. uncomfortable, Behavior is calm, cooperative, nj1 appropriate for age. 12:00 Pain: Complains of pain in left ankle Pain currently is 8 out of 10 on a pain scale. nj1 Neuro: Level of Consciousness is awake, alert, obeys commands, Oriented to person, place, time, situation. Cardiovascular: Patient's skin is warm and dry. Respiratory: Airway is patent Respiratory effort is even, unlabored. Musculoskeletal: Bony deformity noted of Left ankle. 13:30 Reassessment: Patient appears in no apparent distress at this time. Patient and/or nj1 family updated on plan of care and expected duration. Pain level reassessed. Patient is alert, oriented x 3, equal unlabored respirations, skin warm/dry/pink. Vital Signs: 11:55 BP 126 / 71; Pulse 76; Resp 18; Temp 98.4(O); Pulse Ox 100% ; Weight 108.86 kg; Height nj1 6 ft. 2 in. ; Pain 8/10; 13:30 BP 119 / 70; Pulse 76; Resp 17; Pulse Ox 97% ; Pain 3/10; nj1 14:51 BP 136 / 77; Pulse 84; Resp 18; Pulse Ox 100% on R/A; ld1 11:55 Body Mass Index 30.81 (108.86 kg, 187.96 cm) nj1 11:55 Pain Scale: Adult nj 13:30 Pain Scale: Adult [facility] ED Course: 11:57 Patient arrived in ED. eb 12:03 Vee Quevedo, RN is Primary Nurse. nj1 12:05 Triage completed. nj1 12:07 Arm band placed on. nj1 12:11 Patient has correct armband on for positive identification. Bed in low position. Call ok1 light in reach. Side rails up X 1. Provided Education on: call light, fall precautions. 12:26 Akira Randle MD is Attending Physician. bo1 12:39 Notified ED physician of other pain level. nj1 12:43 XRAY Ankle LEFT 3 view In Process Unspecified. EDMS 15:02 Renard, Baljeet, MD is Referral Physician. bo1 15:35 No provider procedures requiring assistance completed. IV discontinued, intact, nj1 bleeding controlled, Pressure dressing applied. 15:43 Primary Nurse role handed off by Vee Quevedo, RN nj1 Administered Medications: 12:59 Drug: morphine IVP or IV 2 mg IVP once over 4 mins Route: IVP; Infused Over: 4 mins; nj1 Site: right antecubital; 14:00 Follow up: Response: No adverse reaction; Pain is decreased nj1 13:49 Drug: morphine IVP or IV 2 mg IVP once over 4 mins Route: IVP; Infused Over: 4 mins; nj1 Site: right antecubital; 14:30 Follow up: Response: No adverse reaction; Pain is decreased nj1 15:35 Drug: Hydrocodone-Acetaminophen PO (7.5 mg-325 mg) 1 tabs PO once Route: PO; nj1 Medication: 15:35 VIS not applicable for this client. nj1 Outcome: 15:02 Discharge ordered by . bo1 15:35 Discharged to home via wheelchair, with family, nj1 15:35 Condition: stable 15:35 Discharge instructions given to patient, family, Instructed on discharge instructions, follow up and referral plans. medication usage, Demonstrated understanding of instructions, follow-up care, medications, Prescriptions given X 1, 15:38 Patient left the ED. nj1 15:43 Patient left the ED. nj1 Signatures: Dispatcher [employer] EDIL Yolie Ruiz Lauren, RN RN ld1 Vee Quevedo RN RN nj1 Akira Randle MD MD bo1
--- NOTE | 2023-11-01 15:02 | EDPHYS ---
Physician Documentation [facility] Name: Antonio Kam Age: 77 yrs Sex: Male : 1945 Arrival Date: 11/01/2023 Time: 11:53 Bed 7 Private MD: ED Physician Akira Randle HPI: 10/31 12:45 This 77 yrs old Male presents to ER via EMS with complaints of Fall Injury. bo1 12:45 Onset: The symptoms/episode began/occurred acutely, today, \\T\\ 11:30 am. Associated bo1 injuries: The patient sustained painful injury, swelling, "twisted" \\T\\ the left ankle. 12:46 Pt was given fentanyl IV by EMS. bo1 Historical: - Allergies: 12:05 unknown diuretic; nj1 - PMHx: 12:05 Diabetes Type 2 diet controlled; Hypertension; BPH (Unknown); Back pain, chronic nj1 (Unknown); - Immunization history:: Client reports receiving the 2nd dose of the Covid vaccine. - Infectious Disease History:: Denies. - Social history:: Smoking status: Patient denies any tobacco usage or history of. Vital Signs: 11:55 BP 126 / 71; Pulse 76; Resp 18; Temp 98.4(O); Pulse Ox 100% ; Weight 108.86 kg; Height nj1 6 ft. 2 in. ; Pain 8/10; 13:30 BP 119 / 70; Pulse 76; Resp 17; Pulse Ox 97% ; Pain 3/10; nj1 14:51 BP 136 / 77; Pulse 84; Resp 18; Pulse Ox 100% on R/A; ld1 11:55 Body Mass Index 30.81 (108.86 kg, 187.96 cm) nj1 11:55 Pain Scale: Adult nj1 13:30 Pain Scale: Adult nj1 MDM: 12:38 Patient medically screened. bo1 10/31 12:27 Order name: XRAY Ankle LEFT 3 view; Complete Time: 12:53 ld1 Administered Medications: 12:59 Drug: morphine IVP or IV 2 mg IVP once over 4 mins Route: IVP; Infused Over: 4 mins; nj1 Site: right antecubital; 14:00 Follow up: Response: No adverse reaction; Pain is decreased nj1 13:49 Drug: morphine IVP or IV 2 mg IVP once over 4 mins Route: IVP; Infused Over: 4 mins; nj1 Site: right antecubital; 14:30 Follow up: Response: No adverse reaction; Pain is decreased nj1 15:35 Drug: Hydrocodone-Acetaminophen PO (7.5 mg-325 mg) 1 tabs PO once Route: PO; nj1 Disposition Summary: 11/01/23 15:02 Discharge Ordered Notes: Location: Home bo1 Problem: new bo1 Symptoms: are unchanged bo1 Condition: Stable bo1 Diagnosis - Nondisplaced fracture of lateral malleolus of left fibula bo1 - Avulsion fracture (chip fracture) of talus - Talar fracture per xray bo1 Followup: bo1 - With: Baljeet Glynn MD - When: Upon discharge from the Emergency Department - Reason: Continuance of care Discharge Instructions: - Discharge Summary Sheet bo1 - Ankle Fracture, [id number] bo1 Forms: - Medication Reconciliation Form bo1 - Antibiotic Education bo1 - Prescription Opioid Use bo1 - Patient Portal Instructions bo1 - Leadership Thank You Letter bo1 Prescriptions: - acetaminophen-codeine 300-30 mg Oral tablet - take 2 tablet ORAL route every 4 to 6 hours as needed for pain; 30 tablet; bo1 Refills: 0, Product Selection Permitted Signatures: Dispatcher [employer] Vee Bellamy RN RN nj1 Akira Randle MD MD bo1
[2023-11-01] MEDS ORDERED: HYDROCODONE/APAP 7.5/325 MG TAB ONE (15:32)
[2023-11-01 16:23] VITALS: BP 136/77; TEMP 98.4; O2SAT 100
== END 2023-11-01 15:43 | disposition home or self-care (01) ==
LOC: ER 11:53
DX: S82.65XA Nondisplaced fracture of lateral malleolus of left fibula, initial encounter for closed fracture (principal); S92.155A Nondisplaced avulsion fracture (chip fracture) of left talus, initial encounter for closed fracture
CPT/HCPCS: 73610; J2270 ×2